=== PATIENT | female | born 1975 | race Caucasian/White ===

== ENCOUNTER 2023-04-06 15:32 | Outpatient (OUT) | payer OTHER, SELFPAY ==
--- NOTE | 2023-04-06 15:35 | MM_ITS ---
Patient Name: SHABANA ROMERO MR#: [id number] : 1975 Exam Date: 04/06/2023 Ordering Doctor: DR YARIEL CALLES RADIOLOGY REPORT PROCEDURE: MM TOMOSYNTHESIS SCREENING BI COMPARISON: MG MAMM SCREEN 3D MITZY CAD, 01/21/2021. MG MAMM SCREEN 3D MITZY CAD, 01/27/2022. INDICATIONS: Screening Calculator Name NCI Breast Cancer Risk Assessment Tool 5 Year Breast Cancer Risk 1.10% Lifetime Breast Cancer Risk 11.10% Personal Breast Cancer No Personal Ovarian Cancer No Treatments None Family Cancers Grandmother-paternal with breast cancer at age ~35. LOCATION: [facility] BREAST COMPOSITION: Heterogeneously dense,which may obscure small masses. FINDINGS: DIAGNOSTIC CATEGORY 1--NEGATIVE. NO CHANGE FROM COMPARISON ASSESSMENT. Scattered benign-appearing calcifications are present. Scattered benign-appearing lymph nodes are present. RIGHT BREAST: No significant suspicious finding. LEFT BREAST: No significant suspicious finding. RECOMMENDATIONS: ROUTINE MAMMOGRAM AND CLINICAL EVALUATION IN 12 MONTHS. PLEASE NOTE: A NORMAL MAMMOGRAM DOES NOT EXCLUDE THE POSSIBILITY OF BREAST CANCER. A CLINICALLY SUSPICIOUS PALPABLE LUMP SHOULD BE BIOPSIED. Dictated by: Ryan Curtis MD on 04/07/2023 at 09:26 Approved by: Ryan Curtis MD on 04/07/2023 at 09:29
== END 2023-04-06 15:33 | disposition home or self-care (01) ==
LOC: MAMMO 15:32
PROVIDERS: PCP Family Medicine; Visit Provider Obstetrics & Gynecology
DX: Z12.31 Encounter for screening mammogram for malignant neoplasm of breast (principal); Z80.3 Family history of malignant neoplasm of breast
CPT/HCPCS: 77063; 77067

== ENCOUNTER 2024-04-28 10:11 | Outpatient (OUT) | payer OTHER, SELFPAY ==
--- NOTE | 2024-04-28 10:16 | MM_ITS ---
Patient Name: SHABANA ROMERO MR#: [id number] : 1975 Exam Date: 04/28/2024 Ordering Doctor: DR YARIEL CALLES RADIOLOGY REPORT PROCEDURE: MM TOMOSYNTHESIS SCREENING BI COMPARISON: MM TOMOSYNTHESIS SCREENING BI, 04/06/2023. MG MAMM SCREEN 3D MITZY CAD, 01/27/2022. MG MAMM SCREEN 3D MITZY CAD, 01/21/2021. MG MAMM MITZY SCRN W CAD DIG, 01/17/2015. INDICATIONS: Screening Calculator Name NCI Breast Cancer Risk Assessment Tool 5 Year Breast Cancer Risk 1.10% Lifetime Breast Cancer Risk 11.00% Personal Breast Cancer No Personal Ovarian Cancer No Treatments None Family Cancers Grandmother-paternal with breast cancer at age ~35. LOCATION: [facility] BREAST COMPOSITION: The breasts are heterogeneously dense,which may obscure small masses. FINDINGS: DIAGNOSTIC CATEGORY 1--NEGATIVE. RIGHT BREAST: No significant suspicious finding. No significant change has occurred. LEFT BREAST: No significant suspicious finding. No significant change has occurred. RECOMMENDATIONS: ROUTINE MAMMOGRAM AND CLINICAL EVALUATION IN 12 MONTHS. PLEASE NOTE: A NORMAL MAMMOGRAM DOES NOT EXCLUDE THE POSSIBILITY OF BREAST CANCER. A CLINICALLY SUSPICIOUS PALPABLE LUMP SHOULD BE BIOPSIED. Dictated by: Rip Suarez M.D. on 04/28/2024 at 15:50 Approved by: Rip Suarez M.D. on 04/28/2024 at 15:52
--- OUTSIDE RECORDS SUMMARY | 2024-04-28 10:23 | XMS_ITS | CCD ---
Author Organization [facility] Care Team Providers Care Advertising Manager Name Role Phone Christiana Tam Unavailable NAILA, DR HITCHCOCK Admitting Unavailable KARASIK, DR HITCHCOCK Attending Unavailable KARASIK, DR HITCHCOCK Consulting Unavailable RAMÍREZ, DR LM Mary Primary Care Unavailable WEST, DR BART Dent Consulting Unavailable RAMÍREZ, DR LM Mary Primary Care Unavailable KARASIK, DR HITCHCOCK Admitting Unavailable KARASIK, DR HITCHCOCK Attending Unavailable KARASIK, DR HITCHCOCK Consulting Unavailable RAMÍREZ, DR LM Mary Admitting Unavailable RAMÍREZ, DR LM Mary Attending Unavailable RAMÍREZ, DR LM Mary Consulting Unavailable RAMÍREZ, DR LM Mary Primary Care Unavailable RAMÍREZ, DR LM Mary Primary Care Unavailable KARASIK, DR HITCHCOCK Attending Unavailable KARASIK, DR HITCHCOCK Consulting Unavailable KARASIK, DR HITCHCOCK Admitting Unavailable KARASIK, DR HITCHCOCK Admitting Unavailable KARASIK, DR HITCHCOCK Attending Unavailable KARASIK, DR HITCHCOCK Consulting Unavailable RAMÍREZ, DR LM Mary Primary Care Unavailable KARASIK, DR HITCHCOCK Admitting Unavailable KARASIK, DR HITCHCOCK Attending Unavailable KARASIK, DR HITCHCOCK Consulting Unavailable RAMÍREZ, DR LM Mary Primary Care Unavailable EDMUNDO, DR VILLARREAL Consulting Unavailable CHAD, VAL Consulting Unavailable MD Bart Brar Attending Provider [phone] DO Lm Ramírez Primary Care Provider COLT CALLES Attending Unavailable Lm Ramírez DO Primary Care Provider [phone] Aparna Campo Unavailable DO Lm Ramírez Primary Care Provider [phone] NAZ Campo Attending Provider JOVON MCDOWELL Attending Unavailable DARRELL LM W Referring Unavailable LM RAMÍREZ Primary Care Unavailable Ramírez Lm Primary Care Unavailable Aparna Campo Attending Unavailable Aparna Campo Admitting Unavailable VISHAL LEGER Admitting Unavailable VISHAL LEGER Attending Unavailable VISHAL LEGER Referring Unavailable RAMÍREZ LM W Primary Care Unavailable HAZEL LAMBERT Attending Unavailable RAMÍREZ, LM W Primary Care Unavailable VISHAL LEGER Attending Unavailable VISHAL LEGER Referring Unavailable RAMÍREZ, LM Tyra Primary Care Unavailable Allergies Allergy Classification Reported Allergen(s) Allergy Type Date of Onset Reaction(s) Facility (7 sources) Azithromycin; Translations: [AZITHROMYCIN] Drug Allergy 2 [facility] (7 sources) Erythromycin; Translations: [ERYTHROMYCIN] Drug Allergy 2 stomach upset, nausea, cramps [facility] Other (1 source) Azithromycin Drug Allergy 7 [facility] Repository (1 source) Erythromycin Drug Allergy 7 [facility] Repository (1 source) Azithromycin Drug Allergy 4 [facility] Repository (1 source) Erythromycin Drug Allergy 4 [facility] Repository Medications Current Medications Medication Drug Class(es) Dates Sig (Normalized) Sig (Original) acetylcysteine 600 mg oral capsule (1 source) Antidote, Mucolytic, Antidote for Acetaminophen Overdose take 2 capsules by mouth in the morning, then take 2 capsules by mouth at bedtime acetylcysteine (NAC) 600 mg capsule Take 2 capsules (1,200 mg total) by mouth in the morning and 2 capsules (1,200 mg total) before bedtime. 0 Active amoxicillin 875 mg / clavulanate 125 mg oral tablet (2 sources) Penicillin-class Antibacterial Start: 05-30-2023 take 1 tablet by mouth every twelve hours Amoxicillin-Pot Clavulanate 875-125 MG 1 tablet Orally every 12 hrs for 10 day(s) May, Active 12 hr cetirizine hydrochloride 5 mg / pseudoephedrine hydrochloride 120 mg extended release oral tablet (7 sources) alpha-Adrenergic Agonist, Histamine-1 Receptor Antagonist take 1 tablet by mouth every twenty-four hours ZyrTEC-D Allergy & Congestion 5-120 MG 1 tablet as needed Orally Once a day Active take 1 tablet by cande th every twelve hours ZyrTEC-D Allergy & Congestion 5-120 MG 1 tablet Orally Twice a day Not-Taking/PRN take 1 tablet by cande th every twelve hours in the morning cetirizine-pseudoephedrine (ZyrTEC-D) 5- 120 mg per 12 hr tablet Take 1 tablet by mouth in the morning and 1 tablet before bedtime. 0 Active cholecalciferol, vitamin D3, (VITAMIN D3 ORAL) (1 source) cholecalciferol, vitamin D3, (VITAMIN D3 ORAL) Take by mouth daily. 0 Active fluconazole 150 mg oral tablet (2 sources) Azole Antifungal Start: 024 Diflucan 150 MG Take 1 tablet on day 1, if still symptomatic on day 4 take 1 tab, if still symptomatic on day 7 take Orally Once a day for 7 days May, Active FLUoxetine (5 sources) Serotonin Reuptake Inhibitor take 1 capsule by mouth in the morning FLUoxetine (PROzac) 10 mg capsule Take 1 capsule (10 mg total) by mouth in the morning. 0 Active Fluoxetine Activ e lisinopril 20 mg oral tablet (5 sources) Angiotensin Converting Enzyme Inhibitor take 1 tablet by mouth every twenty-four hours Lisinopril 20 MG 1 tablet Orally Once a day Active montelukast 10 mg oral tablet (5 sources) Leukotriene Receptor Antagonist take 1 tablet by mouth every twenty-four hours Singulair 10 MG 1 tablet in the evening Orally Once a day Active MOUNJARO 10 mg/0.5 mL pen injector (1 source) Start: 05-11-19 24 MOUNJARO 10 mg/0.5 mL pen injector Inject under the skin once a week. 0 05/11/2023 Active mounjaro 10 mg/0.5ml solution pen-injector (2 sources) Mounjaro 10 MG/0 .5ML as directed Subcutaneous Active sod sulf-pot chloride-mag sulf 1.479-0.188- 0.225 gram tablet (1 source) Start: 06-03-19 24 sod sulf-pot chloride-mag sulf 1.479-0.188- 0.225 gram tablet Indications: Encounter for screening colonoscopy Please see instructional sheet given by physicians office. 24 tablet 0 06/03/2023 Active Vitamin D3 23285 UNIT (3 sources) Vitamin D3 13759 UNIT Orally Active Completed/Discontinued Medications Medication Drug Class(es) Dates Sig (Normalized) Sig (Original) [id number] 200 actuat albuterol 0.09 mg/actuat metered dose inhaler (4 sources) beta2-Adrenergic Agonist take 2 puff(s) by inhalation every four hours as needed Proventil HFA 108 (90 Base) MCG/ACT 2 puffs as needed Inhalation every 4 hrs Not-Taking/PRN take 2 puff(s) by in halation every six hours as needed for wheezing albuterol (PROVENTIL HFA;VENTOLIN HFA) 9 0 mcg/actuation inhaler Inhale 2 puffs every 6 (six) hours as needed for wheezing. 0 Active Jennifer-D 12 Hour (3 sources) Jennifer-D 12 Shreyas r Not-Taking/PRN Jennifer-D 12 Shreyas r Active Augmentin Tablets 875 MG (3 sources) Start: 02-13-2021 take 1 tablet by mouth every twelve hours Augmentin Tablets 875 MG 1 tab(s) orally bid for 10 day(s) Jan, Not-Taking/PRN Start: 02-13-2021 take 1 tablet by cande th every twelve hours Augmentin Tablets 875 MG 1 tab(s) orally bid for 10 day(s) Jan, Active fluticasone (3 sources) Corticosteroid Start: 02-13-2021 take 2 spray(s) nasal route once daily FLONASE 50 mcg 2 sprays nasally qd 2 sprays to each nostril daily until your symptoms improve Jan, Not-Taking/PRN Start: 02-13-2021 take 2 spray(s) nasa l route once daily FLONASE 50 mcg 2 sprays nasally qd 2 sprays to each nostril daily until your symptoms improve Jan, Active ibuprofen 800 mg oral tablet (2 sources) Nonsteroidal Anti-inflammatory Drug Start: 06-09-2021 End: 06-03-2023 take 1 tablet by mouth three times daily ibuprofen (ADVIL,MOTRIN) 800 mg tablet Take 1 tablet (800 mg total) by mouth 3 (three) times a day. 21 tablet 0 06/09/2021 06/03/2023 Discontinued (Therapy completed) methylPREDNISolone 4 mg oral tablet (3 sources) Corticosteroid Start: 01-07-2021 methylPREDNISolone 4 MG as directed Orally Once a day for 6 days Jan, Not-Taking/PRN Multivitamins (3 sources) Multivitamins Or ally Not-Taking/PRN Multivitamins Or ally Active predniSONE 20 mg oral tablet (3 sources) Start: 02-13-2021 take 1 tablet by mouth every twelve hours predniSONE 20 MG 1 tablet Orally bid for 5 day(s) Jan, Not-Taking/PRN Triamcinolone (2 sources) Corticosteroid Start: 04-11-2017 TESFAYE - 10 edilberto g Apr, 60 mg Problems Active Problems Problem Classification Problem Date Documented Date Episodic/Chronic Asthma (7 sources) Acute exacerbation of asthma; Translations: [Unspecified asthma with (acute) exacerbation] Onset: 05-07-2021 Chronic Essential hypertension (7 sources) Hypertensive disorder; Translations: [Essential (primary) hypertension] Onset: 05-07-2021 Chronic Immunizations and screening for infectious disease (2 sources) Contact with and (suspected) exposure to other viral communicable diseases; Translations: [Encounter for screening for human papillomavirus (HPV)] Onset: 02-13-2021 Resolved: 02-13-2021 Episodic Menstrual disorders (7 sources) Excessive and frequent menstruation with regular cycle; Translations: [Dysmenorrhea, unspecified] Onset: 04-12-2021 Chronic Mood disorders (1 source) Premenstrual dysphoric disorder; Translations: [PREMENSTRUAL DYSPHORIC DISORDER] Onset: 05-07-2021 Chronic Other nutritional; endocrine; and metabolic disorders (5 sources) Body mass index 40+ - severely obese; Translations: [Body mass index (BMI) 45.0-49.9, adult] Chronic Other nutritional; endocrine; and metabolic disorders (1 source) Morbid (severe) obesity due to excess calories; Translations: [MORBID SEVERE OBES D/T EXCESS EDIL] Onset: 05-07-2021 Chronic Other nutritional; endocrine; and metabolic disorders (1 source) Body mass index (BMI) 45.0-49.9, adult; Translations: [BODY MASS INDEX BMI 45.0-49.9 ADULT] Onset: 05-07-2021 Chronic Other nutritional; endocrine; and metabolic disorders (1 source) Obese class II; Translations: [Body mass index (BMI) 39.0-39.9, adult] Chronic Other nutritional; endocrine; and metabolic disorders (1 source) Body mass index (BMI) 39.0-39.9, adult Chronic Other screening for suspected conditions (not mental disorders or infectious disease) (12 sources) Encounter for screening for malignant neoplasm of cervix; Translations: [Encounter for screening mammogram for malignant neoplasm of breast] Onset: 01-27-2022 Episodic Other upper respiratory infections (2 sources) Acute sinusitis, unspecified; Translations: [Acute pansinusitis, unspecified] Onset: 02-13-2021 Resolved: 02-13-2021 Episodic Residual codes; unclassified (3 sources) Obstructive sleep apnea syndrome; Translations: [Obstructive sleep apnea (adult) (pediatric)] Chronic Residual codes; unclassified (1 source) Sleep apnea, unspecified; Translations: [SLEEP APNEA UNSPECIFIED] Onset: 05-07-2021 Chronic Residual codes; unclassified (1 source) Obstructive sleep apnea (adult)(pediatric); Translations: [Obstructive sleep apnea (adult) (pediatric)] Onset: 06-03-2023 Chronic Residual codes; unclassified (1 source) Obstructive sleep apnea (adult) (pediatric) Chronic Residual codes; unclassified (1 source) Family history of malignant neoplasm of breast; Translations: [FAMILY HX MALIG NEOPLASM OF BREAST] Onset: 01-29-2022 Episodic Unclassified (1 source) CONTACT W/AND (SUSP) EXPOS COVID-19; Translations: [CONTACT W/AND (SUSP) EXPOS COVID-19] Onset: 04-22-2021 Unclassified (1 source) Colon Cancer Screening Onset: 06-03-2023 Unclassified (1 source) screening Onset: 07-05-2023 Past or Other Problems Problem Classification Problem Date Documented Da te Episodic/Chronic Benign neoplasm of uterus (1 source) Leiomyoma of uterus, unspecified; Translations: [LEIOMYOMA OF UTERUS UNSPECIFIED] Onset: 05-07-2021 Episodic Cancer of cervix (1 source) Atypical squamous cells of undetermined significance on cytologic smear of cervix (ASC-US); Translations: [ASC US ON CYTOLOGIC SMEAR OF CERVIX] Onset: 05-07-2021 Episodic Residual codes; unclassified (1 source) Acquired absence of other specified parts of digestive tract; Translations: [ACQ ABSENCE OTH PART DIGESTV TRACT] Onset: 05-07-2021 Episodic Results Test Name Value Interpretation Reference Range Facility HCG ( test) Ql (U)o n 07-05-2023 Beta HCG ( test) Ql (U) Negative [facility] Comment on above: Performed By: #### 2 106-3 #### [facility] ([id number]) [address] [place] [address], [place] [address] PAP ACOG PANEL 2: 30 to 65on 03-11-2022 . . Normal [facility] Comment on above: Result Comment: Perf ormed at: WB Performed By: #### [id number] #### [facility] [address] [address] [address] Aditi Ying Age Gdln ACOG Testing -64 [facility] Comment on above: Performed By: #### [id number] #### [facility] [address] [address] [address] Aditi Ying DIAGNOSIS: Comment Normal [facility] Comment on above: Result Comment: NEGA TIVE FOR INTRAEPITHELIAL LESION OR MALIGNANCY. Performed at: WB Performed By: #### [id number] #### [facility] [address] [address] [address] Aditi Ying HPV Aptima Negative Normal [facility] Comment on above: Result Comment: This nucleic acid amplification test detects fourteen high-risk HPV types (16,18,31,33,35,39,45,51,52,56,58,59,66,68) without differentiation. Performed at: =G Performed By: #### [id number] #### [facility] [address] [address] [address] Aditi Ying HPV Genotype Reflex Comment Normal [facility] Comment on above: Result Comment: Crit eria not met, HPV Genotype not performed. Performed at: WB Performed By: #### [id number] #### [facility] [address] [address] [address] Aditi Ying Methodology: Comment Normal [facility] Comment on above: Result Comment: This liquid based ThinPrep(R) pap test was screened with the use of an image guided system. Performed at: WB Performed By: #### [id number] #### [facility] [address] [address] [address] Aditi Ying Note: Comment Normal [facility] Comment on above: Result Comment: The Pap smear is a screening test designed to aid in the detection of premalignant and malignant conditions of the uterine cervix. It is not a diagnostic procedure and should not be used as the sole means of detecting cervical cancer. Both false-positive and false-negative reports do occur. . Performed at: WB Performed By: #### [id number] #### [facility] [address] [address] [address] Aditi Ying Performed by: Comment Normal [facility] Comment on above: Result Comment: Wendy Valentino, Design Teacher Performed at: WB Performed By: #### [id number] #### [facility] [address] [place] [address] Dr. Aditi Ying Specimen adequacy: Comment Normal [facility] Comment on above: Result Comment: Sati sfactory for evaluation. Endocervical and/or squamous metaplastic cells (endocervical component) are present. Performed at: WB Performed By: #### [id number] #### [facility] [address] [place] [address] Dr. Aditi Ying MG MAMM SCREEN 3D MITZY CADon 01-27-2022 MG MAMM SCREEN 3D MITZY CAD Patient: KAREN PRECIADO Exam Date: 01/27/2022 : 1975 Gender:F Ordering : DR CORETTA YOO . Admission #: [id number] Family : Order #: [id number] CLICK HERE TO VIEW EXAM RADIOLOGY REPORT PROCEDURE: MAMMOGRAM SCREENING 3D BILATERAL CAD COMPARISON: MG MAMM SCREEN MITZY W CAD, 12/18/2019. MG MAMM SCREEN 3D MITZY CAD, 01/21/2021. INDICATIONS: Screening mammography Calculator Name NCI Breast Cancer Risk Assessment Tool 5 Year Breast Cancer Risk 1.10% Lifetime Breast Cancer Risk 11.30% Personal Breast Cancer No Personal Ovarian Cancer No Treatments None Family Cancers Grandmother-paternal with breast cancer at age 35. LOCATION: [facility] BREAST COMPOSITION: Heterogeneously dense,which may obscure small masses. FINDINGS: DIAGNOSTIC CATEGORY 1--NEGATIVE. NO CHANGE FROM COMPARISON ASSESSMENT. Scattered benign-appearing calcifications are present. Scattered benign-appearing lymph nodes are present. RIGHT BREAST: No significant suspicious finding. LEFT BREAST: No significant suspicious finding. RECOMMENDATIONS: ROUTINE MAMMOGRAM AND CLINICAL EVALUATION IN 12 MONTHS. PLEASE NOTE: A NORMAL MAMMOGRAM DOES NOT EXCLUDE THE POSSIBILITY OF BREAST CANCER. A CLINICALLY SUSPICIOUS PALPABLE LUMP SHOULD BE BIOPSIED. Dictated by: Bart Curtis MD on 01/28/2022 at 07:40 Approved by: Bart Curtis MD on 01/28/2022 at 07:42 Normal [facility] CBC AUTO DIFFon 12-18-2021 BASO # 0.1 103/ul Normal 0.0-0.1 [facility] Comment on above: Performed By: #### H FPFCBC #### [facility] [address] [place] [address] Dr. Aditi Ying Basophils/100 WBC (Bld) 0.6 % Normal 0.2-2.0 [facility] Comment on above: Performed By: #### H FPFCBC #### [facility] [address] [place] [address] Dr. Aditi Ying EO # 0.2 103/ul Normal 0.0-0.7 [facility] Comment on above: Performed By: #### H FPFCBC #### [facility] [address] [place] [address] Dr. Aditi Ying Eosinophils/100 WBC (Bld) 2.2 % Normal 0.9-7.0 [facility] Comment on above: Performed By: #### H FPFCBC #### [facility] [address] [place] [address] Dr. Aditi Ying Erythrocyte distribution width (RBC) [Ratio] 12.9 % Normal 11.0-15.0 [facility] Comment on above: Performed By: #### H FPFCBC #### [facility] [address] [place] [address] Dr. Aditi Ying Hematocrit (Bld) [Volume fraction] 40.8 % Normal 36.0-48.0 [facility] Comment on above: Performed By: #### H FPFCBC #### [facility] [address] [address] [address] Aditi Ying Hemoglobin (Bld) [Mass/Vol] 13.2 g/dL Normal 12.0-16.0 [facility] Comment on above: Performed By: #### H FPFCBC #### [facility] [address] [place] [address] Dr. Aditi Ying IG # 0.02 10e3/ul Normal 0.00-0.03 [facility] Comment on above: Performed By: #### H FPFCBC #### [facility] [address] [place] [address] Dr. Aditi Ying IG % 0.2 % Normal 0.0-0.5 [facility] Comment on above: Performed By: #### H FPFCBC #### [facility] [address] [place] [address] Dr. Aditi Ying LYMPH # 1.6 103/ul Normal 1.2-3.8 [facility] Comment on above: Performed By: #### H FPFCBC #### [facility] [address] [place] [address] Dr. Aditi Ying Lymphocytes/100 WBC (Bld) 19.4 % Critically low 20.5-60.0 [facility] Comment on above: Performed By: #### H FPFCBC #### [facility] [address] [place] [address] Dr. Aditi Ying MCH (RBC) [Entitic mass] 31.0 pg Normal 26.7-34.0 [facility] Comment on above: Performed By: #### H FPFCBC #### [facility] [address] [place] [address] Dr. Aditi Ying MCHC (RBC) [Mass/Vol] 32.4 g/dL Normal 29.9-35.2 [facility] Comment on above: Performed By: #### H FPFCBC #### [facility] [address] [place] [address] Dr. Aditi Ying MCV (RBC) [Entitic vol] 95.8 fL Normal 81.0-99.0 [facility] Comment on above: Performed By: #### H FPFCBC #### [facility] [address] [place] [address] Dr. Aditi Ying MONO # 0.6 103/ul Normal 0.3-0.8 [facility] Comment on above: Performed By: #### H FPFCBC #### [facility] [address] [place] [address] Dr. Aditi Ying Monocytes/100 WBC (Bld) 6.8 % Normal 1.7-12.0 [facility] Comment on above: Performed By: #### H FPFCBC #### [facility] [address] [place] [address] Dr. Aditi Ying NEUT # 6.0 103/ul Normal 1.4-6.5 [facility] Comment on above: Performed By: #### H FPFCBC #### [facility] [address] [place] [address] Dr. Aditi Ying Neutrophils/100 WBC (Bld) 70.8 % Normal 43.0-75.0 [facility] Comment on above: Performed By: #### H FPFCBC #### [facility] [address] [place] [address] Dr. Aditi Ying Platelet mean volume (Bld) [Entitic vol] 11.5 fL Normal 9.5-13.5 [facility] Comment on above: Performed By: #### H FPFCBC #### [facility] [address] [place] [address] Dr. Aditi Ying PLT 287 103/ul Normal 150-450 [facility] Comment on above: Performed By: #### H FPFCBC #### [facility] [address] [place] [address] Dr. Aditi Ying RBC 4.26 106/ul Normal 4.20-5.40 [facility] Comment on above: Performed By: #### H FPFCBC #### [facility] [address] [place] [address] Dr. Aditi Ying WBC 8.5 103/ul Normal 4.0-11.0 [facility] Comment on above: Performed By: #### H FPFCBC #### [facility] [address] [place] [address] Dr. Aditi Ying HEALTH[employer] PROFILEon 022 Albumin [Mass/Vol] 3.9 g/dL Normal 3.4-5.0 [facility] Comment on above: Performed By: #### H FPF #### [facility] [address] [place] [address] Dr. Aditi Ying Albumin/Globulin [Mass ratio] 1.1 {ratio} Normal [facility] Comment on above: Performed By: #### H FPF #### [facility] [address] [place] [address] Dr. Aditi Ying ALP [Catalytic activity/Vol] 59 U/L Normal 46-116 [facility] Comment on above: Performed By: #### H FPF #### [facility] [address] [place] [address] Dr. Aditi Ying ALT [Catalytic activity/Vol] 26 U/L Normal 14-59 [facility] Comment on above: Performed By: #### H FPF #### [facility] [address] [place] [address] Dr. Aidti Ying AST [Catalytic activity/Vol] 12 U/L Critically low 15-37 [facility] Comment on above: Performed By: #### H FPF #### [facility] [address] [place] [address] Dr. Aditi Ying Bilirubin [Mass/Vol] 0.3 mg/dL Normal 0.2-1.0 [facility] Comment on above: Performed By: #### H FPF #### [facility] [address] [place] [address] Dr. Aditi Ying Calcium [Mass/Vol] 9.1 mg/dL Normal 8.5-10.1 [facility] Comment on above: Performed By: #### H FPF #### [facility] [address] [place] [address] Dr. Aditi Ying Chloride [Moles/Vol] 103 mmol/L Normal 98-107 [facility] Comment on above: Performed By: #### H FPF #### [facility] [address] [address] [address] Aditi Ying CHOL-HDL RATIO NORM SEE BELOW Normal [facility] Comment on above: Result Comment: 3.3 - 4.4 LOW RISK 4.4 - 7.1 AVERAGE RISK 7.1 - 11.0 MODERATE RISK >11.0 HIGH RISK Performed By: #### H FPF #### [facility] [address] [address] [address] Aditi Ying Cholesterol [Mass/Vol] 185 mg/dL Normal <=200 [facility] Comment on above: Performed By: #### H FPF #### [facility] [address] [address] [address] Aditi Ying Cholesterol in HDL [Mass/Vol] 48 mg/dL Normal 40-60 [facility] Comment on above: Performed By: #### H FPF #### [facility] [address] [address] [address] Aditi Ying Cholesterol in LDL [Mass/Vol] 109.8 mg/dL Normal [facility] Comment on above: Performed By: #### H FPF #### [facility] [address] [address] [address] Aditi Ying Cholesterol.total/C holesterol in HDL [Mass ratio] 3.9 {ratio} Normal [facility] [facility] Comment on above: Performed By: #### H FPF #### [facility] [address] [address] [address] Aditi Ying CO2 [Moles/Vol] 25.3 mmol/L Normal 21.0-32.0 [facility] Comment on above: Performed By: #### H FPF #### [facility] [address] [address] [address] Aditi Ying Creatinine [Mass/Vol] 0.74 mg/dL Normal 0.55-1.02 [facility] Comment on above: Performed By: #### H FPF #### [facility] [address] [address] [address] Aditi Ying Globulin (S) [Mass/Vol] 3.4 g/dL Normal [facility] Comment on above: Performed By: #### H FPF #### [facility] [address] [address] [address] Aditi Ying Glucose [Mass/Vol] 137 mg/dL Critically high 74-106 T [facility] Comment on above: Performed By: #### H FPF #### [facility] [address] [address] [address] Aditi Ying HDL NORMAL > or = 60 mg/dl - LO W CARDIOVASCULAR RISK <40 mg/dl - HIGH CARDIOVASCULAR RISK Normal The [facility] Comment on above: Performed By: #### H FPF #### [facility] [address] [address] [address] Aditi Ying LDL CALC NORMAL SEE BELOW Normal The [facility] Comment on above: Result Comment: <100 mg/dl OPTIMAL 100 - 129 mg/dl NEAR OR ABOVE OPTIMAL 130 - 159 mg/dl BORDERLINE HIGH 160 - 189 mg/dl HIGH >190 mg/dl VERY HIGH Performed By: #### H FPF #### [facility] [address] [address] [address] Aditi Ying Potassium [Moles/Vol] 4.2 mmol/L Normal 3.5-5.1 [facility] Comment on above: Performed By: #### H FPF #### [facility] [address] [address] [address] Aditi Ying Protein [Mass/Vol] 7.3 g/dL Normal 6.4-8.2 [facility] Comment on above: Performed By: #### H FPF #### [facility] [address] [address] [address] Aditi Ying Sodium [Moles/Vol] 139 mmol/L Normal 136-145 [facility] Comment on above: Performed By: #### H FPF #### [facility] [address] [address] [address] Aditi Ying Triglyceride [Mass/Vol] 136 mg/dL Normal <=150 [facility] Comment on above: Performed By: #### H FPF #### [facility] [address] [address] [address] Aditi Ying TSH 1.349 uIU/mL Normal 0.358-3.740 [facility] Comment on above: Performed By: #### H FPF #### [facility] [address] [address] [address] Aditi Ying Urea nitrogen [Mass/Vol] 16.0 mg/dL Normal 7.0-18.0 [facility] Comment on above: Performed By: #### H FPF #### [facility] [address] [address] [address] Aditi Ying Urea nitrogen/Creatinine [Mass ratio] 21.6 mg/mg Normal [facility] Comment on above: Performed By: #### H FPF #### [facility] [address] [address] [address] Aditi Ying VLDL CALC 27.2 mg/dL Normal [facility] Comment on above: Performed By: #### H FPF #### [facility] [address] [address] [address] Aditi Ying URon 04-21-2021 , QUAL Negative Normal NEGATIVE [facility] Comment on above: Performed By: #### P REGU #### [facility] [address] [address] [address] Aditi Ying Covid-19 PCR [facility]02 SARS-CoV-2 (COVID-19) RNA ABAD+probe Ql (Unsp spec) Not detected Normal NOT DETECTED [facility] Comment on above: Result Comment: This test is not yet approved or cleared by the [place] FDA. When there are no FDA-approved or cleared tests available, and other criteria are met, FDA can make tests available under an emergency access mechanism called an Emergency Use Authorization (EUA). The EUA for this test is supported by the [place] of Health and Human Service's (HHS's) declaration that circumstances exist to justify the emergency use of in vitro diagnostics for the detection and/or diagnosis of the virus that causes COVID-19. This EUA will remain in effect (meaning this test can be used) for the duration of the COVID-19 declaration justifying emergency of IVDs, unless it is terminated or revoked by FDA (after which the test may no longer be used). When diagnostic testing is negative, the possibility of a false negative should be considered in the context of a patient's recent exposures and the presence of clinical signs and symptoms consistent with SARS-CoV-2. Performed By: #### C [facility] #### [facility] [address] [address] [address] Aditi Ying Coding Summaryon 06-04-2020 Coding Summary CODING DATE: 06/04/2020 [facility] STATUS: Home PAYOR: Commercial Insurance APC DESCRIPTION 5521 Level 1 Imaging without Contrast ADMIT DX: REASON FOR VISIT DX: R06.2 Wheezing FINAL DX: PRINCIPAL: R06.2 Wheezing SECONDARY: PYMT PROC APC STAT DESCRIPTION DOCTOR NAME DATE NOTE: The code number assigned matches the documented diagnosis and / or procedure in the patient's chart. However, the narrative phrase printed from the coding software may appear abbreviated, or result in slightly different terminology. Coded By: Karen Arzola Date Saved: 06/04/2020 09:33 am [facility] Provider Ord[place] 05-31-2020 Provider Orders [id number] 0OTGTIFF [facility] XR Chest 2 Viewson XR Chest 2 Views EXAM: XR Chest 2 Vie ws HISTORY: Right-sided wheezing. COMPARISON: None. TECHNIQUE: Two-view chest. FINDINGS: There is mild elevation of the right hemidiaphragm. There is no focal consolidation, pleural effusion, or pneumothorax. The cardiomediastinal silhouette is within normal limits. IMPRESSION: 1. No acute cardiopulmonary disease. Final Dictated by: Vishal Higgins Dictated DT/TM: 05/31/20 11:01 Signed (Electronic Signature): Vishal Higgins 05/31/20 11:02 a Technologist: SHAHBAZ HERR [facility] Coding Summaryon 11-08-2019 Coding Summary CODING DATE: 11/08/2019 [facility] STATUS: Home PAYOR: Commercial Insurance APC DESCRIPTION 5733 Level 3 Minor Procedures ADMIT DX: REASON FOR VISIT DX: Z01.818 Encounter for other preprocedural examination FINAL DX: PRINCIPAL: Z01.818 Encounter for other preprocedural examination SECONDARY: PYMT PROC APC STAT DESCRIPTION DOCTOR NAME DATE NOTE: The code number assigned matches the documented diagnosis and / or procedure in the patient's chart. However, the narrative phrase printed from the coding software may appear abbreviated, or result in slightly different terminology. 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 However, the narrative phrase printed from the coding software may appear abbreviated, or result in slightly different terminology. Coded By: Karen Arzola Date Saved: 11/08/2019 10:14 am [facility] History and Physicalon 10-31 History and Physical [id number]#1.[address] [place] [address] Provider [place] 11-01-2019 Provider Orders [id number]#1.0 [facility] 10-31-2019 Consent Forms [id number]#1.[address] [place] [address] Discharge Instructionson Discharge Instructions [id number]#1.[address] [place] [address] Medication Managementon 10-03 Medication Management [id number]#1.[address] [place] [address] Telemetry Stripson 0 Telemetry Strips [id number]#1.[address] [place] [address] Anesthesia Noteon 10-30-2019 Anesthesia Note Patient: KAREN PRECIADO Age: 43 years Sex: FEMALE : 1975 Associated Diagnoses: None Author: Nasim Rausch MD Preoperative Information Anesthesia history: Patient history: No difficult intubation, No malignant hyperthermia. Family history: No malignant hyperthermia. Review of Systems Constitutional: Negative. Respiratory: Negative, No shortness of breath. Cardiovascular: Negative, No chest pain. Gastrointestinal: No heartburn. Health Status Allergies: Allergic Reactions (All) Severity Not Documented Azithromycin- Hives. Erythromycin- Vomiting. Current medications: Home Medications (8) Active CETIRIZ/PSE 5-120MG TAB 1 tab(s), PRN, BID FLUoxetine 20 mg oral capsule 20 mg = 1 cap(s), PO, Daily lisinopril 20 mg oral tablet 20 mg = 1 tab(s), PO, Daily montelukast 10 mg oral tablet 10 mg = 1 tab(s), PO, qPM multivitamin with minerals 1 tab(s), PO, Daily Ventolin HFA 90 mcg/inh inhalation aerosol 1 puff(s), PRN, INH, q6hr Vitamin D3 10,000 intl units (250 mcg) oral capsule 10,000 International_Unit = 1 cap(s), PO, Every other day Vitamin D3 5000 intl units oral capsule 5,000 International_Unit = 1 cap(s), PO, Every other day Problem list (past medical history): All Problems Asthma / SNOMED CT 155329781 / Confirmed Hypertension / SNOMED CT 3908066318 / Confirmed PMDD (premenstrual dysphoric disorder) / SNOMED CT 0533033 / Confirmed Sleep apnea / SNOMED CT 174334541 / Confirmed Histories Family History: No family history items have been selected or recorded. Procedure history: LASIK ([id number]). Cholecystectomy (96094074). Ankle (9514926). Comments: 10/25/2019 13:17 EDT - Perla Griffin RN elongated calf muscle, after Achilles injury Social History Electronic Cigarette/Vaping Assessment Electronic Cigarette Use: Never. Alcohol Assessment Use: Current. 1-2 times per month Tobacco Assessment Never (less than 100 in lifetime) Tobacco Use:. Substance Abuse Assessment Substance use: Never. . Social & Psychosocial Habits Alcohol 10/25/2019 Alcohol Use: Current Frequency: 1-2 times per month Substance Abuse 10/25/2019 Substance use: Never Tobacco 10/25/2019 Smoking tobacco use: Never (less than 100 in l Electronic Cigarette/Vaping 10/25/2019 Electronic Cigarette Use: Never . Physical Examination VS/Measurements Measurements from flowsheet : Measurements 10/30/2019 13:45 EDT Weight 107.3 kg , Vital Signs (last 24 hrs) Last Charted Heart Rate Peripheral 76 bpm (OCT 29 13:45) Resp Rate 16 br/min (OCT 29 13:45) SBP H 144mmHg (OCT 29 13:50) DBP 78 mmHg (OCT 29 13:50) SpO2 98 % (OCT 29 13:45) Weight 107.3 kg (OCT 29 13:45) Review / Management Laboratory Results Plan [place] [employer]hesi[employer]#(ASA ) physical status classification: Class III. Anesthetic Preoperative Plan Anesthesia: General. . Anesthetic plan, risks, benefits, and alternatives discussed with the patient and/or family. Patient verbalized understanding. [Electronically Signed on: 10/30/2019 14:50 EDT] Nasim Rausch MD [Verified on: 10/30/2019 14:50 EDT] Nasim Rausch MD Normal [facility] Inpatient Patient Summaryon 10-30-2019 Inpatient Patient Summary [address] [address] Patient Discharge Instructions Name: KAREN PRECIADO : 1975 Patient Address: [address] [place] [address] [place] [address] Primary Care Provider: Name: Lm Ramírez DO After you are discharged if you find you have any questions, please, call [phone] ext [phone] to speak to a nurse. Discharge Diagnosis: Internal derangement of left knee Prescription Information: If you have been given a prescription for narcotics, seek immediate medical attention if you have any difficulty breathing or any sudden status changes such as confusion and sleepiness. If you or anyone you know is experiencing suicidal thoughts, mental health, alcohol and/or drug addiction problems; contact the Mental Health [facility] Recovery [facility] 23/11 Crisis Hotline -text 4HBHB kq 468430. If you received any narcotics, sedation, or any other medication that causes drowsiness for the next 24 hours, unless otherwise directed: ? Do not drive a car. ? Do not operate machinery such as power tools, lawn mowers, drills, sewing machines, or stoves ? Avoid alcoholic beverages and drugs for allergies, nerves, or sleep ? Do not make important personal or business decisions or sign any legal documents [facility] would like to thank you for allowing us to assist you with your healthcare needs. The following includes patient education materials and information regarding your injury/illness. KAREN PRECIADO has been given the following list of follow-up instructions, prescriptions, and patient education materials: Follow-up Instructions With: Address: When: VIKY MAZA [address] [place] [address], [address] [place], [place] [id number] Business (1) 11/07/2019 9:15 AM With: Address: When: Lm Ramírez Medications During the course of your visit, your medication list was updated with the most current information. The details of those changes are reflected below: Medications That Were Updated - Follow Below Instructions Other Medications Updated: Durable Medical Equipment (DME) (CETIRIZ/PSE 5-120MG TAB) 1 tab(s) 2 times a day as needed allergy symptoms. Medications to Continue That Have Not Changed Other Medications albuterol (Ventolin HFA 90 mcg/inh inhalation aerosol) 1 puff(s) Inhalation Every 6 hours as needed for wheezing. cholecalciferol (Vitamin D3 10,000 intl units (250 mcg) oral capsule) 1 cap(s) Oral every other day. cholecalciferol (Vitamin D3 5000 intl units oral capsule) 1 cap(s) Oral every other day. with food. FLUoxetine (FLUoxetine 20 mg oral capsule) 1 cap(s) Oral every day. lisinopril (lisinopril 20 mg oral tablet) 1 tab(s) Oral every day. montelukast (montelukast 10 mg oral tablet) 1 tab(s) Oral once a day (in the evening). multivitamin with minerals 1 tab(s) Oral every day. It is important to always keep an active list of medications available so that you can share with other providers and manage your medications appropriately. As an additional courtesy, we are also providing you with your final active medications list that you can keep with you. albuterol (Ventolin HFA 90 mcg/inh inhalation aerosol) 1 puff(s) Inhalation Every 6 hours as needed for wheezing. cholecalciferol (Vitamin D3 10,000 intl units (250 mcg) oral capsule) 1 cap(s) Oral every other day. cholecalciferol (Vitamin D3 5000 intl units oral capsule) 1 cap(s) Oral every other day. with food. Durable Medical Equipment (DME) (CETIRIZ/PSE 5-120MG TAB) 1 tab(s) 2 times a day as needed allergy symptoms. FLUoxetine (FLUoxetine 20 mg oral capsule) 1 cap(s) Oral every day. lisinopril (lisinopril 20 mg oral tablet) 1 tab(s) Oral every day. montelukast (montelukast 10 mg oral tablet) 1 tab(s) Oral once a day (in the evening). multivitamin with minerals 1 tab(s) Oral every day. Take only the medications listed above. Contact your doctor prior to taking any medications not on this list. Diet & Activity Patient Activity Level: Patient Diet: Regular Patient Activity Restrictions: Comment: Patient education materials, if any, will display below DR. MESA POST OPERATIVE KNEE ARTHROSCOPY INSTRUCTIONS SURGEONS WRITTEN INSTRUTCTIONS: -If you have been given a cryo cuff after surgery you should use it about 20 min/hour for the first 24 hours. After that it is optional. TIP: Many patients prefer to use it a little longer because it helps to reduce the pain. -You should take it easy for the first 3 days following surgery. You should be a ?couch potato? and get up to eat and go to the bathroom. After the first 3 days, you may gradually increase your activities as tolerated. -Change your dressing in 1 day. If the wounds are clean and dry you can cover them with a band-aid. -You may shower in 1 day. DO NOT submerge the wound under water as in a bathtub, swimming pool, or hot tub. -You may bear weight as tolerated. Using crutches or assisted devices are not required. -You should elevate your extremity -If you have any questions or concerns, please call the office at [phone] Viruses or Bacteria What?s got you sick? Antibiotics only treat bacterial infections. Viral illnesses cannot be treated with antibiotics. When an antibiotic is not prescribed, ask your healthcare professional for tips on how to relieve symptoms and feel better. Usual Cause Illness Viruses Bacteria Antibiotic Needed Cold/Runny Nose NO Bronchitis/Chest Cold (in otherwise healthy children and adults) NO Whooping Cough Yes Flu NO Strep Throat Yes Sore Throat (except strep) NO Fluid in the middle ear (otitis media with effusion) NO Urinary Tract Infection Yes Antibiotics Aren?t Always the Answer www.cdc.gov/getsmart GET SMART Know When Antibiotics Work [place].S. Department of Health and Human Services Centers for Disease Control and Prevention [facility] Intraoperative Record MAGR Intra-Op Record Summary Primary Physician: Savage Roberson DO Finalized Date/Time: 10/30/19 16:29:49 Pt. Name: KAREN PRECIADO/Sex: 1975 FEMALE Med Rec #: [id number] Physician: Savage Roberson DO Financial #: [id number] Pt. Type: D Room/Bed: / Admit/Disch: 10/30/19 13:32:31 - Institution: Case Times MAGR Entry 1 Patient In Room Time 10/30/19 14:59:00 Out Room Time 10/30/19 15:53:00 Anesthesia Start Time 10/30/19 14:59:00 Stop Time 10/30/19 15:53:00 Surgery Start Time 10/30/19 15:25:00 Stop Time 10/30/19 15:46:00 Last Modified By: Rama Shafer RN 10/30/19 16:17:37 Case Attendance MAGR Entry 1 Entry 2 Entry 3 Case Attendee Savage Roberson John M MD Radloff, LeighStephanie Vu DO Role Performed Surgeon - Primary Anesthesiologist of School Attendance Secretary Record Time In 10/30/19 14:59:00 10/30/19 14:59:00 10/30/19 14:59:00 Time Out 10/30/19 15:53:00 10/30/19 15:53:00 10/30/19 15:53:00 Procedure Arthroscopy Knee(Left, Arthroscopy Knee(Left, Arthroscopy Knee(Left, Knee) Knee) Knee) Last Modified By: Rama Shafer RN 10/30/19 Rama Shafer RN 10/30/19 Rama Shafer RN 10/30/19 16:18:35 16:18:35 16:18:35 Entry 4 Entry 5 Case Attendee Brandy Wylie Ruth RN Role Performed Scrub Personnel [place] Time In 10/30/19 14:59:00 10/30/19 14:59:00 Time Out 10/30/19 15:53:00 10/30/19 15:53:00 Procedure Arthroscopy Knee(Left, Arthroscopy Knee(Left, Knee) Knee) Last Modified By: Rama Shafer RN 10/30/19 Rama Shafer RN 10/30/19 16:18:35 16:18:35 Surgical Procedures MAGR Pre-Care Text: A.20 Verifies operative procedure, surgical site, and laterality Im.150 Develops individualized plan of care Entry 1 Procedure Arthroscopy Knee Primary Procedure Yes Primary Surgeon Savage Roberson Modifiers Left, Knee Horace DO Surgeon Comment LEFT KNEE ARTHROSCOPY Start 10/30/19 15:25:00 Stop 10/30/19 15:46:00 Anesthesia Type General Surgical Service Orthopedics Wound Class Clean Technique Details Closure Technique Primary Entire procedure No was performed via laparoscope or robotic assistance Last Modified By: Rama Shafer RN 10/30/19 16:19:00 Post-Care Text: O.730 The patient's care is consistent with the individualized perioperative plan of care General Case Data MAGR Pre-Care Text: A.350.1 Classifies surgical wound Entry 1 Case Information OR MAGR OR 01 Case Level Level 4 Wound Class Clean Specialty Orthopedics ASA Class 3 Diagnosis Preop Diagnosis TORN MEDIAL MENISCUS Postop Same As Preop Yes LEFT KNEE Postop Diagnosis TORN MEDIAL MENISCUS LEFT KNEE Blunt or No Is the procedure No penetrating injury considered occured prior to Emergent/Urgent? the start of the procedure: Last Modified By: Rama Shafer RN 10/30/19 16:19:19 Post-Care Text: O.760 Patient receives consistent and comparable care regardless of the setting Time Out MAGR Entry 1 Time out date/time 10/30/19 15:24:00 All team members Yes have introduced themselves by name and role Surgeon, Yes Surgeon reviews Yes anesthesia, nurse critical or confirm patient, unexpected steps, site, procedure operative duration, anticipated blood loss Anesthesia team Yes Nursing team Yes reviews any reviews sterility patient-specific (including concerns indicator results) and equipment issues/concerns Antibiotic Antibiotic Yes prophylaxis given within the last 60 minutes Last Modified By: Rama Shafer RN 10/30/19 16:19:37 Patient Positioning MAGR Pre-Care Text: A.280 Identifies baseline musculoskeletal status Im.40 Positions the patient Im.80 Applies safety devices Entry 1 Procedure Arthroscopy Knee(Left, Body Position Supine Knee) Left Arm Position Extended on padded arm Right Arm Position Extended on padded arm board board Left Leg Position Other/see comments Right Leg Position Dangling Feet Uncrossed? Yes Press Points Checked Yes Positioning Device Safety Strap, Pillow Outcome Met (O.80) Yes Last Modified By: Rama Shafer RN 10/30/19 16:21:26 Post-Care Text: E.290 Evaluates musculoskeletal status O.80 Patient is free from signs and symptoms of injury related to positioning General Comments: LEFT LEG IN HORSESHOE LEG DORSEY RIGHT LEG SUPPORTED BY CUSHION WHILE DANGLING Skin Prep MAGR Pre-Care Text: A.30 Verifies allergies Im.270 Performs skin preparation Im.270.1 Implements protective measures to prevent skin and tissue injury due to chemical sources Entry 1 Skin Prep Syntegrity Prep Agents (Im.270) Chlorhexidine Gluconate Prep By Rama Shafer RN and Alcohol Prep Area (Im.270) Knee and lower leg, Foot Prep Area Details Left Skin Prep Agent Dry Yes Without Pooling Hair Removal Syntegrity Hair Removal Methods No hair removal performed Outcome Met (O.100) Yes Last Modified By: Rama Shafer RN 10/30/19 16:22:29 Post-Care Text: E.10 Evaluates for signs and symptoms of physical injury to skin and tissue O.100 Patient is free from signs and symptoms of chemical injury Counts Verification MAGR Pre-Care Text: A.20 Verifies operative procedure, surgical site, and laterality A.20.2 Assesses the risk for unintended retained foreign body Im.20 Performs required counts Entry 1 Procedure Arthroscopy Knee(Left, Knee) Counts Verification Initial Counts Items included in Sponges, Sharps Initial Counts Manual the Initial Count Method Initial Counts Rama Shafer RN, Initial Count Time 10/30/19 15:10:00 Performed By Brandy Wylie Counts Verification Final Counts Items Included in Sponges, Sharps Final Count Method Manual Final Count Final Count Status Correct Final Counts Rama Shafer RN, Performed By Brandy Wylie Final Count Time 10/30/19 15:40:00 Surgeon notified of Yes final counts status Outcome Met (O.20) Yes Last Modified By: Rama Shafer RN 10/30/19 16:22:55 Post-Care Text: E.50 Evaluates results of the surgical count O.20 Patient is free from unintended retained foreign objects Patient Care Devices MAGR Pre-Care Text: A.200 Assesses risk for normothermia regulation A.40 Verifies presence of prosthetics or corrective devices Im.280 Implements thermoregulation measures Im.60 Uses supplies and equipment within safe parameters Entry 1 Equipment Type FORCED WARM AIR UNIT Equipment Setting 43 DEGREE C Last Modified By: Rama Shafer RN 10/30/19 16:23:25 Post-Care Text: E.10 Evaluates signs and symptoms of physical injury to skin and tissue O.700 Patient is free from signs and symptoms of injury caused by extraneous objects General Comments: UPPER BODY Medication Administration MAGR Pre-Care Text: A.210 Identifies physiological status Im.220 Administers prescribed medications Entry 1 Time Administered 10/30/19 15:25:00 Medication EPI 1:1,000 0.3ML TO 3,000 ML 0.9% NORMAL SALINE Route of Admin IRRIG Volume 6 mL By Savage Roberson Outcome Met (O.130) Yes Horace CHAMBERS Last Modified By: Rama Shafer RN 10/30/19 16:23:58 Post-Care Text: E.20 Evaluates response to medications O.130 Patient receives appropriately administered medication(s) Dressing/Packing MAGR Pre-Care Text: A.350 Assesses susceptibility for infection Im.290 Administer care to wound sites Entry 1 Skin Prep Agent Yes Site Knee Removed Prior to Dressing? Site Details Left Dressing Item Details Dressing Item 4x4's, ABD Tape (Im.290) Elastic Sports Bandage (Im.290) Outcome Met Yes Last Modified By: Rama Shafer RN 10/30/19 16:24:44 Post-Care Text: E.200 Evaluates progress of wound healing O.200 Patient's wound perfusion is consistent with or improved from baseline levels Departure from OR MAGR Entry 1 Present on Depart Oxygen Via Stretcher Post-op Destination PACU Skin DFO Condition Dry Description Condition Warm Description Report Given To Cara Mo RN Airway Maintenance Patient Status Stable Oxygen in Use? Yes Airway Device Simple mask Flow Rate 15 L/min Last Modified By: Rama Shafer RN 10/30/19 16:25:18 Case Comments Finalized By: Rama Shafer RN Document Signatures Signed By: Rama Shafer RN 10/30/19 [facility]29 [facility] PACU Record Summary Primary Physician: Savage Roberson DO Finalized Date/Time: 10/30/19 16:48:45 Pt. Name: KAREN PRECIADO/Sex: 1975 FEMALE Med Rec #: [id number] Physician: Savage Roberson DO Financial #: [id number] Pt. Type: D Room/Bed: / Admit/Disch: 10/30/19 13:32:31 - Institution: PACU Case Times MAGR Entry 1 In PACU I 10/30/19 15:45:00 Discharge from PACU 10/30/19 16:29:00 I Last Modified By: Cara Mo RN 10/30/19 16:48:38 General Comments: sTABLE TO TRANSFER TO pHASE II Finalized By: Cara Mo RN Document Signatures Signed By: Cara Mo RN 10/30/19 16:48 [facility] MAGR Postoperative Recordon 10-30-2019 MAGR Postoperative Record MAGR Phase II Record Summary Primary Physician: Savage Roberson DO Finalized Date/Time: 10/30/19 17:07:12 Pt. Name: KAREN PRECIADO/Sex: 1975 FEMALE Med Rec #: [id number] Physician: Savage Roberson DO Financial #: [id number] Pt. Type: D Room/Bed: / Admit/Disch: 10/30/19 13:32:31 - Institution: Phase II Case Times MAGR Pre-Care Text: Patient is free from s/s of injury. Patient remains free from compromised physical state related to surgery or anesthesia. Patient comfort maintained. Patient/family verbalize understanding of discharge instructions. Entry 1 In PACU II 10/30/19 16:30:00 Discharge from PACU 10/30/19 17:07:00 II Last Modified By: Shirlene Kenyon RN 10/30/19 17:07:06 Post-Care Text: The patient remains free from s/s of injury. Patient's vital signs stable, circulation maintained, return to preop mental and physical status, opsite/dressing intact, minimal or absent nausea and vomiting, tolerates po intake. Patient verbalizes adequate pain control. Patient/family express understanding of discharge instructions. Finalized By: Shirlene Kenyon RN Document Signatures Signed By: Shirlene Kenyon RN 10/30/19 17:07 [facility] MAGR Preoperative Recordon 0 10-30-2019 MAGR Preoperative Record MAGR Pre-Op Record Summary Primary Physician: Savage Roberson DO Finalized Date/Time: 10/30/19 16:49:15 Pt. Name: KAREN PRECIADO [place]/Sex: 1975 FEMALE Med Rec #: [id number] Physician: Savage Roberson DO Financial #: [id number] Pt. Type: D Room/Bed: / Admit/Disch: 10/30/19 13:32:31 - Institution: Pre-Op Case Times MAGR Pre-Care Text: Patient will be optimally prepared for surgery. Patient is free from s/s of injury. Provide information to patient/family related to plan of care. Verify patient allergies. Confirm identity and verify consent before the operative or invasive procedure. Entry 1 Patient Arrival Time 10/30/19 13:35:00 Preop Departure 10/30/19 14:57:00 Last Modified By: Cara Mo RN 10/30/19 16:49:10 Post-Care Text: Patient is prepared mentally and physically and is ready for surgery. The patient remains free from s/s of injury. Patient/family express understanding of plan of care and participate in decisions affecting his or her perioperrative plan of care. Allergies documented appropriately. Patient identifiers and consent correct. General Comments: Patient arrives ambulatory. Patient denies recent cold/flu symptoms, SOB, diabetes, chest pain, or defibrillator/pacemake r. Pt does have sleep apnea- uses CPAP at night. 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 There was fissuring that went down to the bone and there was frayed fibrillated cartilage change and into the joint. Additionally there was a complex tear in the posterior horn of medial meniscus. The articular cartilage medially was thinned down but no areas of exposed bone and laterally the knee looked normal. Procedure summary: Patient was given a general anesthetic the knee was examined there is no obvious instability she had good range of motion. The leg was positioned in a leg dorsey and sterilely prepped and draped in usual fashion. A timeout was taken. An inferior lateral portal was established upon entering the patellofemoral joint articular cartilage was noted to be irregular with fibrillated tissue and some fissuring that appeared to go to the bone. Utilizing a 4 oh aggressor plus this was shaved back to a stable base. In the medial compartment there was a complex tear of the posterior horn the medial meniscus. Utilizing a meniscal biter and a 4 oh resector. A partial medial meniscectomy was performed. I noted some thinning of the articular weightbearing surface of the medial femoral condyle but I did not see any areas of exposed bone. In the notch the ACL and PCL were both intact In the lateral compartment the articular cartilage was intact the meniscus was grossly normal. Each compartment was revisited the joint was irrigated and evacuated and the portals were closed with nylon sutures [Electronically Signed on: 10/30/2019 15:53 EDT] Savage Roberson DO [Verified on: 10/30/2019 15:53 EDT] Savage Roberson DO [facility] Patient Handouton 10-30-[address] MESA POST OPERATIVE KNEE ARTHROSCOPY INSTRUCTIONS SURGEONS WRITTEN INSTRUTCTIONS: -If you have been given a cryo cuff after surgery you should use it about 20 min/hour for the first 24 hours. After that it is optional. TIP: Many patients prefer to use it a little longer because it helps to reduce the pain. -You should take it easy for the first 3 days following surgery. You should be a ?couch potato? and get up to eat and go to the bathroom. After the first 3 days, you may gradually increase your activities as tolerated. -Change your dressing in 1 day. If the wounds are clean and dry you can cover them with a band-aid. -You may shower in 1 day. DO NOT submerge the wound under water as in a bathtub, swimming pool, or hot tub. -You may bear weight as tolerated. Using crutches or assisted devices are not required. -You should elevate your extremity -If you have any questions or concerns, please call the office at [phone] [facility] Test Urine U Preg Negative [facility] Comment on above: Performed By: #### 3 [id number] #### [facility] (DEFAULT) [address] [place] [address] U Preg Internal Control Pass [facility] Comment on above: Performed By: #### 3 [id number] #### [facility] (DEFAULT) [address] [place] [address] SARS-CoV-2 (COVID-19) PCRon 10-30-2019 COVID-19 PCR Not Detected Normal Not Detected [facility] Comment on above: Performed By: #### 6 [id number] ####[facility] (DEFAULT)[address] [place] [address]192 Progress Note - Nurseon 10-02 Progress Note - Nurse Spoke with pt and informed her to be here at 1330 and NPO after MN, she verbalizes understanding. [Electronically Signed on: 10/27/2019 13:45 EDT] Meseret Del Angel RN [Verified on: 10/27/2019 13:45 EDT] Meseret Del Angel RN [facility] .Auto Diff 10-25-2019 Auto Talbot % 7 % Normal 05-14 [facility] Comment on above: Performed By: #### 1 [id number], [id number], [id number] ####[facility] (DEFAULT)[address] [place] [address] 64340 Baso Abs# 0.0 x10 Normal 0.0-0.2 [facility] Comment on above: Performed By: #### 1 [id number], [id number], [id number] ####[facility] (DEFAULT)[address] [place] [address] 52056 Basophils/100 WBC (Bld) 0.4 % Normal 0.2-2.0 [facility] Comment on above: Performed By: #### 1 [id number], [id number], [id number] ####[facility] (DEFAULT)[address] [place] [address] 38698 Eos Abs# 0.2 x10 Normal 0.0-0.4 [facility] Comment on above: Performed By: #### 1 [id number], [id number], [id number] ####[facility] (DEFAULT)[address] [place] [address] 34211 Eosinophils/100 WBC (Bld) 2.0 % Normal 0.9-4.0 [facility] Comment on above: Performed By: #### 1 [id number], [id number], [id number] ####[facility] (DEFAULT)[address] [place] [address] 55082 Lymphocytes (Bld) [#/Vol] 1.6 x10 Normal 1.3-2.9 [facility] Comment on above: Performed By: #### 1 [id number], [id number], [id number] ####[facility] (DEFAULT)[address] [place] [address] 14640 Lymphocytes/100 WBC (Bld) 19 % Normal 14-48 [facility] Comment on above: Performed By: #### 1 [id number], [id number], [id number] ####[facility] (DEFAULT)[address] [place] [address] 16163 Talbot Abs# 0.6 x10 Normal 0.0-0.8 [facility] Comment on above: Performed By: #### 1 [id number], [id number], [id number] ####[facility] (DEFAULT)[address] [place] [address] 04258 Neut Abs# 6.0 x10 Normal 1.5-9.2 [facility] Comment on above: Performed By: #### 1 [id number], [id number], [id number] ####[facility] (DEFAULT)[address] [place] [address] 54816 Neutrophils/100 WBC (Bld) 71 % Normal 44-88 [facility] Comment on above: Performed By: #### 1 [id number], [id number], [id number] ####[facility] (DEFAULT)[address] [place] [address] Standardon 10-25-2019 eGFR Non AA >60 [facility] Comment on above: Performed By: #### 1 [id number], [id number], [id number] ####[facility] (DEFAULT)[address] [place] [address] 95345 eGFR AA >60 [facility] Comment on above: Result Comment: Physics Department Chair jaimee Kidney disease could be indicated at eGFRs of less than 60 ml/min/1.73m2. Kidney Failure is indicated at less than 15 ml/min/1.73m2 Performed By: #### 1 [id number], [id number], [id number] ####[facility] (DEFAULT)[address] [place] [address] 56098 Anion gap [Moles/Vol] 14.0 mmol/L Normal 5.0-19.0 [facility] Comment on above: Performed By: #### 1 [id number], [id number], [id number] ####[facility] (DEFAULT)[address] [place] [address] 15434 Calcium [Mass/Vol] 9.2 mg/dL Normal 8.9-10.3 [facility] Comment on above: Performed By: #### 1 [id number], [id number], [id number] ####[facility] (DEFAULT)[address] [place] [address] 73090 Chloride [Moles/Vol] 104 mmol/L Normal 101-111 [facility] Comment on above: Performed By: #### 1 [id number], [id number], [id number] ####[facility] (DEFAULT)[address] [place] [address] 12185 CO2 [Moles/Vol] 24 mmol/L Normal 21-32 [facility] Comment on above: Performed By: #### 1 [id number], [id number], [id number] ####[facility] (DEFAULT)[address] [place] [address] 72131 Creatinine [Mass/Vol] 0.63 mg/dL Normal 0.60-1.30 [facility] Comment on above: Performed By: #### 1 [id number], [id number], [id number] ####[facility] (DEFAULT)[address] [place] [address] 95434 Glucose [Mass/Vol] 91.0 mg/dL Normal 74.0-118.0 [facility] Comment on above: Performed By: #### 1 [id number], [id number], [id number] ####[facility] (DEFAULT)[address] [place] [address] 49952 Osmolality [Osmolality] 277 mOsm/L [facility] Comment on above: Performed By: #### 1 [id number], [id number], [id number] ####[facility] (DEFAULT)[address] [place] [address] 38657 Potassium [Moles/Vol] 3.7 mmol/L Normal 3.6-5.1 [facility] Comment on above: Performed By: #### 1 [id number], [id number], [id number] ####[facility] (DEFAULT)[address] [place] [address] 19508 Sodium [Moles/Vol] 138.0 mmol/L Normal 136.0-144.0 [facility] Comment on above: Performed By: #### 1 [id number], [id number], 5458436 ####[facility] (DEFAULT)[address] [place] [address] 64022 Urea nitrogen [Mass/Vol] 18 mg/dL Normal 8-26 [facility] Comment on above: Performed By: #### 1 [id number], [id number], [id number] ####[facility] (DEFAULT)[address] [place] [address] 19271 Urea nitrogen/Creatinine [Mass ratio] 29.0 mg/mg High 4.6-16.2 [facility] Comment on above: Performed By: #### 1 [id number], [id number], 6860539 ####[facility] (DEFAULT)[address] [place] [address] CBC w/ Auto Diffon 0 Erythrocyte distribution width (RBC) [Ratio] 12.8 % Normal 11.5-15.0 [facility] Comment on above: Performed By: #### 1 [id number], [id number], [id number] ####[facility] (DEFAULT)[address] [place] [address] Hematocrit (Bld) [Volume fraction] 40.2 % Normal 33.7-40.4 [facility] Comment on above: Performed By: #### 1 [id number], [id number], 0579556 ####[facility] (DEFAULT)[address] [place] [address] Hemoglobin (Bld) [Mass/Vol] 12.9 g/dL Normal 11.3-15.9 [facility] Comment on above: Performed By: #### 1 [id number], [id number], 4995189 ####[facility] (DEFAULT)[address] [place] [address] 56852 Man Diff? Auto Normal [facility] Comment on above: Performed By: #### 1 [id number], [id number], 4560120 ####[facility] (DEFAULT)[address] [place] [address] 80910 MCH (RBC) [Entitic mass] 32 pg Normal 24-34 [facility] Comment on above: Performed By: #### 1 [id number], [id number], 8746491 ####[facility] (DEFAULT)[address] [place] [address] 70045 MCHC (RBC) [Mass/Vol] 32 g/dL Normal 26-37 [facility] Comment on above: Performed By: #### 1 [id number], [id number], 6267508 ####[facility] (DEFAULT)[address] [place] [address] 93748 MCV (RBC) [Entitic vol] 98 fL Normal 81-100 [facility] Comment on above: Performed By: #### 1 [id number], [id number], 9093758 ####[facility] (DEFAULT)[address] [place] [address] 83590 Platelet mean volume (Bld) [Entitic vol] 11.2 fL High 6.3-10.2 [facility] Comment on above: Performed By: #### 1 [id number], [id number], 5605702 ####[facility] (DEFAULT)[address] [place] [address] 78201 Platelets (Bld) [#/Vol] 270 x10 Normal 138-427 [facility] Comment on above: Performed By: #### 1 [id number], [id number], 2967111 ####[facility] (DEFAULT)[address] [place] [address] 20239 RBC (Bld) [#/Vol] 4.09 x10 Normal 3.70-5.30 [facility] Comment on above: Performed By: #### 1 [id number], [id number], 6182482 ####[facility] (DEFAULT)[address] [place] [address] 02503 WBC (Bld) [#/Vol] 8.5 x10 Normal 3.5-10.5 [facility] Comment on above: Performed By: #### 1 [id number], [id number], 4874892 ####[facility] (DEFAULT)[address] [place] [address] 22655 Provider Orderson 10-12-2019 Provider Orders [id number] 0OTGTIFF Normal [facility] Coding Summaryon 09-29-2019 Coding Summary CODING DATE: 09/29/2019 FINAL [facility] STATUS: Home PAYOR: [employer] APC DESCRIPTION 5523 Level 3 Imaging without Contrast ADMIT DX: REASON FOR VISIT DX: M25.571 Pain in right ankle and joints of right foot S86.011A Strain of right Achilles tendon, initial encounter FINAL DX: PRINCIPAL: M25.571 Pain in right ankle and joints of right foot SECONDARY: S86.011A Strain of right Achilles tendon, initial encounter PYMT PROC APC STAT DESCRIPTION DOCTOR NAME DATE NOTE: The code number assigned matches the documented diagnosis and / or procedure in the patient's chart. However, the narrative phrase printed from the coding software may appear abbreviated, or result in slightly different terminology. Coded By: Lori Padilla Date Saved: 09/29/2019 08:27 am [facility] Rad - MRI Reporton 0 Rad - MRI Report [id number] [facility] Information[facility] Release of Information [id number] [facility] LE Joint w/o Contrast Le fton 09-27-2019 MRI LE Joint w/o Contrast Left HISTORY: Pain along the lateral aspect of the left knee since June. Evaluate for internal derangement of the knee. MRI LE JOINT W/O CONTRAST LEFT: 09/27/2019 11:50 AM EDT COMPARISON: None. TECHNIQUE: Coronal and sagittal proton-density fat-saturated images, sagittal T1, T2, and axial STIR images of the left knee were obtained without contrast. FINDINGS: JOINT SPACES: There is a moderate-sized joint effusion. There appear to be mild degenerative changes of the medial femorotibial compartment with mild cartilage thinning and small marginal osteophytes. There also appear to be mild degenerative changes of the patellofemoral compartment with patchy grade 2 chondromalacia of the patellar cartilage. The remaining articular cartilage appears grossly within normal limits. LIGAMENTS AND TENDONS: There is medial bowing of the medial collateral ligament at the joint line, but the ligament appears of normal size and signal intensity. The lateral collateral ligament, posterior cruciate ligament, iliotibial band, patellar tendon, and visualized distal quadriceps tendon appear within normal limits. The anterior cruciate ligament appears within normal limits. MENISCI: There is a complex morphology flap tear involving the free edge and undersurface of the body and posterior horn of the medial meniscus. There is a small meniscal flap fragment flipped into the inferior aspect of the medial gutter as seen on image 20 of the coronal sequence. There is a small linear focus of increased signal intensity involving the superior articular surface of the peripheral third of the anterior horn of the lateral meniscus as best seen on the sagittal proton-density fat-saturated sequence. BONES: There is evidence of red marrow in the distal femoral metadiaphysis and the proximal tibia and fibular metadiaphyses. There is a small focus of subchondral bone marrow edema involving the medial aspect of the medial tibial plateau. MUSCLES AND SOFT TISSUES: The visualized musculature appears of normal signal intensity. There is a moderate-sized, multiloculated Mc's cyst. There is soft tissue swelling along the anterior aspect of the knee. IMPRESSION: 1. Complex flap tear of the body and posterior horn of the medial meniscus with a small meniscal flap fragment flipped into the inferior aspect of the medial femorotibial gutter. There is a mild stress reaction in the adjacent medial aspect of the medial tibial plateau. 2. Possible small vertical longitudinal tear of the peripheral third of the superior articular surface of the anterior horn lateral meniscus. 3. 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 4. Moderate-sized joint effusion and moderate-sized Mc's cyst. 5. No ligament injury is seen. Final Dictated by: Heber Pedraza Dictated DT/TM: 09/28/19 10:45 Signed (Electronic Signature): Heber Pedraza 09/28/19 11:43 a Technologist: [facility] Vital Signs Date Time Vital Sign Value Performing Clinician Facility 06-03-2023 15:32-0500 Body mass index (BMI) [Ratio] 40.62 kg/m2 Jovon DAY Work Phone: [facility] 06-03-2023 15:32-0500 Body weight 94.35 kg Jovon DAY Work Phone: [facility] 06-03-2023 15:32-0500 Diastolic blood pressure 93 mm[Hg] Jovon DAY Work Phone: [facility] 06-03-2023 15:32-0500 Heart rate 79 /min Jovon Mcdowell APRN-[employer] Work Phone: [employer] 06-03-2023 15:32-0500 Systolic blood pressure 172 mm[Hg] Jovon Mcdowell APRN-[employer] Work Phone: [employer] 06-03-2023 13:15-0500 Body height 154.94 cm Aparna Campo Other [employer] Other 06-03-2023 13:15-0500 Body mass index (BMI) [Ratio] 39.11 kg/m2 Aparna Campo Other [employer] Other 06-03-2023 13:15-0500 Body weight 93.9 kg Aparna Campo Other [employer] Other 06-03-2023 13:15-0500 Diastolic blood pressure 80 mm[Hg] Aparna Campo Other [employer] Other 06-03-2023 13:15-0500 SaO2% (BldA) [Mass fraction] 95 % Aparna Campo Other [employer] Other 06-03-2023 13:15-0500 Systolic blood pressure 138 mm[Hg] Aparna Campo Other [employer] Other 05-30-2023 11:30-0500 Body height 154.94 cm Aparna Campo Other [employer] Other 05-30-2023 11:30-0500 Body mass index (BMI) [Ratio] 38.92 kg/m2 Aparna Campo Other [employer] Other 05-30-2023 11:30-0500 Body temperature 98 [degF] Aparna Campo Other [employer] Other 05-30-2023 11:30-0500 Body weight 93.44 kg Aparna Campo Other [employer] Other 05-30-2023 11:30-0500 Respiratory rate 18 /min Aparna Campo Other [employer] Other 05-30-2023 11:30-0500 SaO2% (BldA) [Mass fraction] 97 % Aparna Campo Other [employer] Other 02-13-2021 12:15-0400 Body height 154.94 cm Christiana Hagenmond Other [employer] Other 02-13-2021 12:15-0400 Body mass index (BMI) [Ratio] 45.34 kg/m2 Christiana Anel Other [employer] Other 02-13-2021 12:15-0400 Body temperature 98.9 [degF] Christiana Hagenmond Other [facility] Other 02-13-2021 12:15-0400 Body weight 108.86 kg Christiana Anel Other [employer] Other 02-13-2021 12:15-0400 Respiratory rate 18 /min Christiana Anel Other [facility] Other 02-13-2021 12:15-0400 SaO2% (BldA) [Mass fraction] 96 % Christiana Anel Other [employer] Other Encounters Encounter Date Encounter Type Care Provider Facility Start: 07-06-2023 End: 07-06-2023 Evaluation and management of inpatient HAZEL D LAMBERT [facility] Start: 07-05-2023 End: 07-06-2023 Evaluation and management of inpatient VISHAL LEGER [facility] Start: 06-03-2023 End: 06-03-2023 ambulatory JOVON Paz MCDOWELL [facility] Start: 06-03-2023 End: 06-03-2023 Patient encounter procedure Jovon A Mcdowell [employer] Work Phone: [facility] Comment on above: Encounter for screen ing colonoscopy (Primary Dx) Start: 06-03-2023 End: 06-03-2023 ambulatory Lm Ramírez Facility:[facility] Start: 06-03-2023 Office outpatient vi sit 15 minutes Aparna Campo [facility] Start: 06-03-2023 End: 06-03-2023 ambulatory DO Lm Giraldoe Work Phone: [facility] Work Phone: Start: 06-03-2023 End: 06-03-2023 Patient encounter procedure DO mL Ramírez Work Phone: [facility] Work Phone: Start: 05-30-2023 End: 05-30-2023 ambulatory Aparna Campo Other [facility] Other Start: 05-30-2023 Office outpatient vi sit 15 minutes Aparna Campo [facility] Start: 05-13-2023 Telephone encounter Jovon Mcdowell [employer] Work Phone: [facility] Start: 04-30-2023 End: 04-30-2023 ambulatory COLT CALLES Not Available Start: 04-15-2022 End: 04-15-2022 ambulatory DO Lm Giraldoe Work Phone: [facility] Work Phone: Start: 04-15-2022 End: 04-15-2022 Patient encounter procedure DO Lm Giraldoe Work Phone: [facility] Start: 03-03-2022 End: 03-03-[address] LM RAMÍREZ Facility:[facility] Start: 01-27-2022 End: 01-28-[address] CORETTA YOO Facility:[facility] Start: 12-18-2021 End: 12-19-[address] LM RAMÍREZ Facility:[facility] Start: 04-22-2021 Encounter for preprocedural laboratory examination DR CORETTA YOO [facility] Start: 04-21-2021 End: 04-21-[address] CORETTA YOO Facility:[facility] Start: 04-17-2021 End: 04-18-[address] CORETTA YOO Facility:[facility] Start: 04-17-2021 End: 04-18-2021 Encounter for preprocedural laboratory examination DR CORETTA YOO Facility:[facility] Start: 04-12-2021 Encounter for preprocedural cardiovascular examination DR CORETTA YOO [facility] Start: 04-08-2021 End: 04-09-[address] LM RAMÍREZ Facility:[facility] Start: 04-08-2021 End: 04-09-2021 Encounter for preprocedural cardiovascular examination DR LM RAMÍREZ Facility:[facility] Start: 02-13-2021 Office outpatient vi sit 15 minutes [facility] Plan of Treatment Date Care Activity Detail Author Start: 06-03-2024 Adult BMI Screening Adult BMI Screen ing [facility] Start: 06-03-2024 Tobacco Screening Tobacco Screening [facility] Start: 06-03-2023 End: 06-03-2023 Patient encounter procedure 06/03/2023 3:30 PM EST Office Visit [facility] [address] [place] [id number] Jovon Mcdowell APRN-LISS [address] [place] [address] [facility] Start: 01-01-2023 COVID-19 Vaccine () COVID-19 Vaccine () [facility] Start: 01-01-2023 Influenza vaccination Influenza Vacc ine [facility] Start: 06-09-2022 Adult BMI Screening Adult BMI Screen ing [facility] Start: 06-09-2022 Tobacco Screening Tobacco Screening [facility] Start: 10-18-2018 DTaP,Tdap and Td Vaccines (2 - Td or Tdap) DTaP,Tdap and Td Vaccines (2 - Td or Tdap) [facility] Start: 12-02-1995 Screening for malign ant neoplasm of cervix Pap Smear [facility] Start: 1986 Depression Screening Depression Scre ening [facility] End: 06-03-2024 Colonoscopy Colonoscopy GI Routine Encounter for screening colonoscopy 1 Occurrences starting 06/03/2023 until 06/03/2024 [facility] Work Phone: Comment on above: 1 Occurrences starti ng 06/03/2023 until 06/03/2024 Immunizations Immunization Date Immunization Notes Care Provider Tone schulte 01-21-2021 influenza virus vaccine, unspecified formulation Jovon Mcdowell [employer] Work Phone: [facility] 04-11-2017 KENALOG - 10 mg Christiana lopez Other [employer] Other Payers Date Payer Category Payer Self-pay [id number] 2016 Unknown [employer] [id number] 2016-Present [phone] [address] [place] [address] [id number] 1974 Unknown [id number] 1974 Unknown [id number] [id number] 1974 Unknown [id number] [id number] 1974 Unknown [id number] [id number] 1974 Unknown [id number] [id number] 1974 Unknown [id number] 2.16.840.1.904812.3.579.2.1259 1974 Unknown [id number] [id number] 1974 Unknown [id number] 2.16.840.1.342992.3.579.2.1286 1974 Unknown [id number] 2.16.840.1.588315.3.579.2.1286 1974 Unknown [id number] 2.16.840.1.589741.3.579.2.1286 1974 Unknown [id number] [id number] 1959 Self-pay [id number] 1959 Unknown [id number] [id number] Unknown [id number] [id number] Unknown [id number] [id number] Social History Date Type Detail Facility Unknown if ever smoked [facility] Other Start: 10-12-2018 End: 06-09-2021 Sex Assigned At [facility] Other Start: 1975 Sex Assigned At Female [facility] Start: 06-09-2021 End: 06-03-2023 Tobacco smoking status VAIS Never smoked tobacco [facility] Start: 06-09-2021 End: 06-03-2023 Tobacco use and exposure Smokeless tobacco non-user [facility] Start: 06-09-2021 End: 06-03-2023 Alcohol intake Current drinker of alcohol (finding) [facility] Start: 10-12-2018 End: 06-09-2021 History of Social function [facility] Housing Instability Unknown [facility] Start: 1975 Sex Assigned At Not on file [facility] Start: 06-03-2023 Alcohol Comment Socially; 1-4 beers once/month [facility] Start: 05-31-2023 Gender identity Identifies as female gender (finding) [facility] Start: 05-31-2023 Sexual orientation Heterosexual (finding) [facility] Clinical Notes 02-13-2021 to 06-03-2023 Jovon Mcdowell, [employer] - 06/03/2023 3:30 PM EST Note Date & Type Note Facility 06-03-2023 History of Present illness Narrative Images from the original note were not included. Chief Complaint: Colon cancer screening History of Present Illness Karen Preciado is a 47 y.o. female who presents to the office for colon cancer screening. She denies any changes in her bowels including diarrhea, constipation, abdominal pain, melena, hematochezia, unexplained weight loss. She has a history of cholecystectomy around [address] Luo. She reprots looser stools since. She has 1-2 bowel movement daily. Could eat more fiber. There is a family history of colon cancer in her maternal grandma. Review of Systems Constitutional: Negative for fever and unexpected weight change. HENT: Negative for trouble swallowing. Respiratory: Negative for shortness of breath. Cardiovascular: Negative for chest pain. Gastrointestinal: Negative for nausea, vomiting, abdominal pain, diarrhea, constipation, blood in stool and black tarry stool. Genitourinary: Negative for dysuria and difficulty urinating. Musculoskeletal: Negative for gait problem. Skin: Negative for rash and wound. Neurological: Negative for dizziness, weakness and light-headedness. Hematological: Does not bruise/bleed easily. Psychiatric/Behavioral: Negative for confusion. Past Medical History: Diagnosis Date Arthritis September 2019 Found in knees during meniscus repair surgery. Asthma Hypertension Jaundice 73 Jaundice at . PMDD (premenstrual dysphoric disorder) Pneumonia I have had pneumonia several times. I am currently vaccinated with Prevnar. Varicella 1983 Visual impairment I ve had corrective lenses since age 6. Past Surgical History: Procedure Laterality Date ACHILLES TENDON REPAIR CHOLECYSTECTOMY DILATION AND CURETTAGE OF UTERUS 04/2021 EYE SURGERY 04-05-2008 LASIK MENISCECTOMY Allergies Allergen Reactions Azithromycin Erythromycin Current Outpatient Medications: acetylcysteine (NAC) 600 mg capsule, Take 2 capsules (1,200 mg total) by mouth in the morning and 2 capsules (1,200 mg total) before bedtime., Disp: , Rfl: albuterol (PROVENTIL HFA;VENTOLIN HFA) 90 mcg/actuation inhaler, Inhale 2 puffs every 6 (six) hours as needed for wheezing., Disp: , Rfl: cetirizine-pseudoephedrine (ZyrTEC-D) 5-120 mg per 12 hr tablet, Take 1 tablet by mouth in the morning and 1 tablet before bedtime., Disp: , Rfl: cholecalciferol, vitamin D3, (VITAMIN D3 ORAL), Take by mouth daily., Disp: , Rfl: FLUoxetine (PROzac) 10 mg capsule, Take 1 capsule (10 mg total) by mouth in the morning., Disp: , Rfl: lisinopriL (PRINIVIL,ZESTRIL) 20 mg tablet, Take 1 tablet (20 mg total) by mouth in the morning., Disp: , Rfl: montelukast (SINGULAIR) 10 mg tablet, Take 1 tablet (10 mg total) by mouth nightly., Disp: , Rfl: MOUNJARO 10 mg/0.5 mL pen injector, Inject under the skin once a week., Disp: , Rfl: sod sulf-pot chloride-mag sulf 1.479-0.188- 0.225 gram tablet, Please see instructional sheet given by physicians office., Disp: 24 tablet, Rfl: 0 Social History Socioeconomic History Marital status: Single Spouse name: Not on file Number of children: Not on file Years of education: Not on file Highest education level: Not on file Occupational History Not on file Tobacco Use Smoking status: Never Smokeless tobacco: Never Substance and Sexual Activity Alcohol use: Yes Comment: Socially; 1-4 beers once/month Drug use: Never Sexual activity: Not Currently Partners: Male control/protection: Condom Other Topics Concern Not on file Social History Narrative Not on file Social Determinants of Health Financial Resource Strain: Not on file Food Insecurity: Not on file Transportation Needs: Not on file Physical Activity: Not on file Stress: Not on file Social Connections: Not on file Interpersonal Safety: Not on file Housing Instability: Not on file Family History Problem Relation Age of Onset Arthritis Mother Knees; hips Hypertension Mother Miscarriages / Stillbirths Mother Arthritis Father Knees Asthma Father Hypertension Father Stroke Father Diabetes Maternal Grandfather Hypertension Maternal Grandfather Colon cancer Maternal Grandmother Hypertension Maternal Grandmother Stroke Maternal Grandmother Vision loss Maternal Grandmother Asthma Paternal Grandfather COPD Paternal Grandfather Heart disease Paternal Grandfather Hypertension Paternal Grandfather Breast cancer Paternal Aunt Objective Physical Exam Constitutional: General: She is not in acute distress. Appearance: Normal appearance. She is not ill-appearing. HENT: Head: Normocephalic and atraumatic. Mouth/Throat: Mouth: Mucous membranes are moist. Eyes: Pupils: Pupils are equal, round, and reactive to light. Cardiovascular: Rate and Rhythm: Normal rate. Pulmonary: Effort: Pulmonary effort is normal. No respiratory distress. Abdominal: General: There is no distension. Palpations: Abdomen is soft. Tenderness: There is no abdominal tenderness. Musculoskeletal: General: Normal range of motion. Skin: General: Skin is warm and dry. Neurological: Mental Status: She is alert and oriented to person, place, and time. Mental status is at baseline. Vital Signs: Blood pressure (!) 172/93, pulse 79, weight 94.3 kg (208 lb). Respiratory Source: No data recorded Admission Weight: Weight: 94.3 kg (208 lb) Labs Lab Results Component Value Date WBC 17.0 (H) 06/09/2021 HGB 12.4 06/09/2021 HCT 37.3 06/09/2021 MCV 93 06/09/2021 PLT 269 06/09/2021 Lab Results Component Value Date GLU 242 (H) 06/09/2021 CALCIUM 9.0 06/09/2021 K 3.6 06/09/2021 CO2 22 06/09/2021 CL 100 06/09/2021 BUN 9 06/09/2021 CREATININE 0.67 06/09/2021 No results found for: AMYLASE Lab Results Component Value Date LIPASE 65 (H) 06/09/2021 Lab Results Component Value Date ALT 18 06/09/2021 AST 15 06/09/2021 ALKPHOS 58 06/09/2021 No results found for: INR , PROTIME Assessment Karen Preciado is a 47 y.o.female who presents to the office for screening colonoscopy. Plan Colonoscopy with possible biopsy and/or polypectomy. Risks, benefits, and alternatives discussed with patient. Educated on bowel evacuation preparation. Patient verbalizes understanding and wishes to proceed. Evaluation included: Preparing to see the patient (e.g., review of tests) Obtaining and/or reviewing separately obtained history Performing a medically appropriate examination and/or evaluation Counseling and educating the patient/family/caregiver Referring and communicating with other health home care specialist Encounter for screening colonoscopy [Z12.11] SHAY ZUNIGA [facility] [place] This note was created with the assistance of a speech recognition program. While intending to generate a timely document that accurately reflects the content of the visit, no guarantee can be provided that every grammatical or spelling mistake has been or will be identified or corrected. Thank you for your understanding. SHAY Zuniga 06/03/23 1600 documented in this encounter [facility] 06-03-2023 Evaluation note Encounter Date Diagnosis Assessment Notes Jun, Obstructive sleep apnea (ICD-10 - G47.33) Fortunately, the patient is using and benefiting from treatment. Download was reviewed with patient, Current pressure is controlling apnea well, And we will make no changes at this time. A prescription was sent to the [facility] for new supplies throughout the year. She was encouraged to continue to use her machine nightly, throughout the entire night as this does provide clinical benefit. She will follow-up in the sleep clinic in 1 year or sooner if problems. Jun, Primary hypertension (ICD-10 - I10) Positive effects of controlled HIRO and hypertension were reviewed. Control of sleep apnea will frequently have a positive effect on blood pressure control, and may additionally reduce blood pressure lability. Jun, BMI 39.0-39.9,adult (ICD-10 - Z68.39) Pt's weight is down since last OV. Positive effects of weight loss on HIRO were reviewed. She was advised to follow diet modification and increase activity as tolerated. We will continue to monitor. Jun, Other Call if any questions or problems. Patient is advised to work on healthy diet choices and appropriate servings, weight control, regular exercise as directed, and reduce fat intake. Use machine regularly, and keep up with mask changes as needed. Call if problems with mask toleration, increased sleepiness, or poor response to treatment. [facility] Other 01-28-2024 Evaluation note* Encounter Date Diagnosis Assessment Notes Treatment Notes Treatment Clinical Notes May, Acute pansinusitis (ICD-10 - J01.40) rx sent, take as directed. diflucan was also sent per pt request for frequent yeast infections with atb use. may continue symptomatic tx c otc meds prn. recommended hot steam baths and/or cool mist humidifier. push rest/fluids. reinforced universal infection control protocols and good hand hygiene for infection control. immediate eval if warning s/s of intractable fevers, respir distress or other emergent symptoms. otherwise f/u with PCP INB despite treatment. [facility] Other 01-11-2024 Miscellaneous Notes* Telephone Encounter - Yolanda Kendrick - 05/13/2023 12:59 PM EST Called Karen regarding the screening colonoscopy referral that our office received from Dr. Calles, I left a message on her voicemail to call the office back to schedule an appointment. * Telephone Encounter - Yolanda Kendrick - 05/13/2023 12:59 PM EST Called Karen regarding the referral that our office received, I left a message on her voicemail to call the office back to schedule an appointment. * Telephone Encounter - Yolanda Kendrick - 05/13/2023 12:59 PM EST Karen called the office back and we scheduled her an appointment on 06/03/2023. [facility] Note* Telephone Encounter - Yolanda Kendrick - 05/13/2023 12:59 PM EST Called Karen regarding the screening colonoscopy referral that our office received from Dr. Calles, I left a message on her voicemail to call the office back to schedule an appointment. [facility]01-11-2024 Telephone encounter Note* Telephone Encounter - Yolanda Kendrick - 05/13/2023 12:59 PM EST Called Karen regarding the referral that our office received, I left a message on her voicemail to call the office back to schedule an appointment. [facility]01-11-2024 Telephone encounter Note* Telephone Encounter - Yolandapaz Kendrick - 05/13/2023 12:59 PM EST Karen called the office back and we scheduled her an appointment on 06/03/2023. [facility]10-14-2021 Evaluation note* Encounter Date Diagnosis Assessment Notes Treatment Notes Treatment Clinical Notes Jan, Contact with and (suspected) exposure to other viral communicable diseases (ICD-10 - Z20.828) Jan, Acute sinusitis, recurrence not specified, unspecified location (ICD-10 - J01.90) Drink plenty fluids, get plenty of rest. Take the Augmentin as prescribed until gone. Take the prednisone as prescribed until gone. Use the Flonase inhaler as prescribed until your symptoms improve. Continue your home medications as prescribed. Tylenol or Motrin for aches pains or fevers. Follow-up with your family physician if no improvement in 2 to 3 days. Jan, Other Additional time spent conducting pre-visit phone call, screening for symptoms, instructions on social distancing, application and removal of PPE, and cleaning of examination room, equipment and supplies was preformed. Patient education given for testing methodology and results. Patient care instructions given in writting by [facility] At Home document. [facility] Other Evaluation noteNo assessment information available [facility] Work Phone: Evaluation note* Diagnosis Encounter for screening colonoscopy- Primary documented in this encounter [facility] VideoJax SystemHistory general Narrative - Reported* Type Description Date Medical History Seasonal allergies Medical History Asthma Medical History Anxiety and depression Medical History HTN Medical History HIRO (obstructive sleep apnea) Surgical History cholecystectomy Surgical History lasik Surgical History oral surgery Surgical History wisdom teeth Surgical History fixed achilles right Surgical History knee arthroscopy left Hospitalization History see above Hospitalization History pneumonia [facility] Other InstructionsNot on filedocumented in this encounter [employer] SystemInstructionsNot on filedocumented in this encounter [facility] Purpose Family History No Family History Records FoundNo Family History Records FoundNo Family History Records FoundNo Family History Records FoundNo Family History Records FoundNo Family History Records Found Advance Directives No Advanced Directives Records Found Advance Directive Response Recorded Date/ Time Advance Directives No October 27 6:19am Hospital Course Note [facility] SURGERY Clinical Discharge Summary PERSON INFORMATION Name KAREN PRECIADO Age 43 Years 1975 Sex FEMALE Language Zambian PCP Lm Ramírez DO Marital Status Single Med Service Ambulatory Surgery MRN [id number] Acct# Arrival 10/30/2019 13:32:31 Visit Reason SURGERY-LEFT KNEE ARTHROSCOPY Acuity LOS 018 01:31 Address: [place] [address] Comment: PROVIDER INFORMATION VITALS INFORMATION Vital Sign Triage Latest Temp Oral Temp Temporal Temp Intravascular Temp Axillary Temp Rectal 02 Sat 97 % 100 % Respiratory Rate Peripheral Pulse Rate Apical Heart Rate Blood Pressure / 94 mmHg / 70 mmHg Comment: MEDICAL INFORMATION Allergy Info: azithromycin; erythromycin Prescriptions Given: albuterol (Ventolin HFA 90 mcg/inh inhalation aerosol) 1 puff(s) Inhalation Every 6 hours as needed for wheezing. cholecalciferol (Vitamin D3 10,000 intl units (250 mcg) oral capsule) 1 cap(s) Oral every other day. cholecalciferol (Vitamin D3 5000 intl (more content not included)... Note Patient: KAREN PRECIADO Age: 43 years Sex: FEMALE : 1975 Associated Diagnoses: None Author: Nasim Rausch MD Postoperative Information Post Operative Note Health Status Allergies: Allergic Reactions (All) Severity Not Documented Azithromycin- Hives. Erythromycin- Vomiting. Problem list (past medical history): All Problems Asthma / SNOMED CT 630685317 / Confirmed Hypertension / SNOMED CT 5765564200 / Confirmed PMDD (premenstrual dysphoric disorder) / SNOMED CT 1537593 / Confirmed Sleep apnea / SNOMED CT 192111408 / Confirmed Physical Examination VS/Measurements Vital Signs (last 24 hrs) Last Charted Heart Rate Peripheral 76 bpm (OCT 29 13:45) Resp Rate 14 br/min (OCT 29 15:55) SBP 123 mmHg (OCT 29 15:55) DBP 70 mmHg (OCT 29 15:55) SpO2 100 % (OCT 29 15:55) Weight 107.3 kg (OCT 29 13:45) Assessment Anesthetic outcome No anesthetic complications noted. Plan Transfer/ Discharge: To home, Patient can be discharged from PACU when c (more content not included)... Procedure Findings Note Patient: KAREN PRECIADO Age: 43 years Sex: FEMALE : 1975 Associated Diagnoses: None Author: Nasim Rausch MD Postoperative Information Post Operative Note Health Status Allergies: Allergic Reactions (All) Severity Not Documented Azithromycin- Hives. Erythromycin- Vomiting. Problem list (past medical history): All Problems Asthma / SNOMED CT 277456273 / Confirmed Hypertension / SNOMED CT 4311754167 / Confirmed PMDD (premenstrual dysphoric disorder) / SNOMED CT 5322472 / Confirmed Sleep apnea / SNOMED CT 033891677 / Confirmed Physical Examination VS/Measurements Vital Signs (last 24 hrs) Last Charted Heart Rate Peripheral 76 bpm (OCT 29 13:45) Resp Rate 14 br/min (OCT 29 15:55) SBP 123 mmHg (OCT 29 15:55) DBP 70 mmHg (OCT 29 15:55) SpO2 100 % (OCT 29 15:55) Weight 107.3 kg (OCT 29 13:45) Assessment Anesthetic outcome No anesthetic complications noted. Plan Transfer/ Discharge: To home, Patient can be discharged from PACU when c (more content not included)... Chief Complaint and Reason for Visit Chief Complaint follow up [facility] Chief Complaint hiro, kvng childs ne- [facility] Additional Source Comments INFORMATION SOURCE (unrecogn ized section and content) DATE CREATED AUTHOR 06/04/2020 [facility] DATE CREATED AUTHOR AUTHOR'S ORGANIZ ATION 03/12/2022 [facility] DATE CREATED AUTHOR AUTHOR'S ORGANIZ ATION 05/02/2023 [facility] DATE CREATED AUTHOR AUTHOR'S ORGANIZ ATION 06/06/2023 [facility] DATE CREATED AUTHOR AUTHOR'S ORGANIZ ATION 06/11/2023 [facility] DATE CREATED AUTHOR AUTHOR'S ORGANIZ ATION 07/07/2023 [facility] REASON FOR VISIT (unrecogniz ed section and content) Reason Comments Colon Cancer Screening Screening colonos copy Specialty Diagnoses / Procedures Referred By Benny vora Referred To Contact General Surgery Diagnoses Encounter for screening for malignant neoplasm of colon Procedures [facility] COLONOSCOPY FLX DX W/COLLJ SPEC WHEN [facility] Colt Calles DO [address], [address] [place] [address] Vishal Leger DO [address] [place] [address] Referral ID Status Reason Start Date Expiration Date Visits Re quested Visits Authorized [id number] Closed 05/11/2023 11/07/2023 1 1 Care Teams (unrecognized sec tion and content) Team Status: Active Member Role Status Dates Lm Ramírez DO Primary Care Provider Active Team Status: Inactive Member Role Status Dates Lm Ramírez DO Primary Care Provider Active St art: June 03, 2023 End: June 03, 2023 Aparna Campo NP Attending Provider Active Start: June 03, 2023 End: June 03, 2023 Team Status: Inactive Member Role Status Dates Bart Brar MD Attending Provider Active Lm Ramírez DO Primary Care Provider Active Advertising Manager Relationship Specialty Start Date End Date DarrellLm [address] [place] [id number] PCP - General Family Medicine 06/09/21 Advertising Manager Relationship Specialty Start Date End Date RamírezLm frias [address] [place] [id number] PCP - General Family Medicine 06/09/21 Goals (unrecognized section and content) Goals may be documented in a n alternate section FOR RECORDS PERTAINING TO PATIENTS WHO ARE OR HAVE BEEN ENROLLED IN A CHEMICAL DEPENDENCY/SUBSTANCEABUSE PROGRAM, SOME INFORMATION MAY BE OMITTED. This clinical summary was aggregated from multiple sources. Caution should be exercised in using it in the provision of clinical care. This summary normalizes information from multiple sources, and as a consequence, information in this document may materially change the coding, format and clinical context of patient data. In addition, data may be omitted in some cases. CLINICAL DECISIONS SHOULD BE BASED ON THE PRIMARY CLINICAL RECORDS. [employer] provides no warranty or guarantee of the accuracy or completeness of information in this document.
== END 2024-04-28 10:12 | disposition home or self-care (01) ==
LOC: MAMMO 10:11
PROVIDERS: PCP Family Medicine; Visit Provider Obstetrics & Gynecology
DX: Z12.31 Encounter for screening mammogram for malignant neoplasm of breast (principal); Z80.3 Family history of malignant neoplasm of breast
CPT/HCPCS: 77063; 77067

== ENCOUNTER 2025-05-01 10:18 | Outpatient (OUT) | payer OTHER, SELFPAY ==
--- NOTE | 2025-05-01 10:21 | MM_ITS ---
Patient Name: SHABANA ROMERO MR#: [id number] : 1975 Exam Date: 05/01/2025 Ordering Doctor: DR YARIEL CALLES RADIOLOGY REPORT PROCEDURE: MM TOMOSYNTHESIS SCREENING BI COMPARISON: MM TOMOSYNTHESIS SCREENING BI, 04/28/2024. MM TOMOSYNTHESIS SCREENING BI, 04/06/2023. MG MAMM SCREEN 3D MITZY CAD, 01/27/2022. MG MAMM MITZY SCRN W CAD DIG, 01/17/2015. INDICATIONS: Screening Calculator Name NCI Breast Cancer Risk Assessment Tool 5 Year Breast Cancer Risk 1.20% Lifetime Breast Cancer Risk 10.80% Personal Breast Cancer No Personal Ovarian Cancer No Treatments None Family Cancers Grandmother-paternal with breast cancer at age ~35. LOCATION: [facility] BREAST COMPOSITION: The breasts are heterogeneously dense, which may obscure small masses. FINDINGS: RIGHT BREAST: No significant suspicious finding. LEFT BREAST: No significant suspicious finding. DIAGNOSTIC CATEGORY 1--NEGATIVE. RECOMMENDATIONS: ROUTINE MAMMOGRAM AND CLINICAL EVALUATION IN 12 MONTHS. Dictated by: Jesse Lovelace DO on 05/01/2025 at 11:55 Approved by: Jesse Lovelace DO on 05/01/2025 at 11:58
--- OUTSIDE RECORDS SUMMARY | 2025-05-01 10:21 | XMS_ITS | Clinical Summary ---
Author Organization [employer] Address [facility] [id number] [address] [place] [address] Care Team Providers Care Interactive Marketing Strategist Name Role Phone Lm Voss DO Primary Care Provider [phone] Allergies Active AllergyReactionsCriticalityNoted FdymHrsrmlljEflcepyfdwyp33/07/2022 Hldupptqblef98/07/2022 Medications MedicationSigDispense QuantityRefillsLast FilledStart DateEnd DateStatus montelukast (SINGULAIR) 10 mg tablet Take 1 tablet (10 mg total) by mouth nightly.Active cetirizine-pseudoephedrine (ZyrTEC-D) 5-120 mg per 12 hr tablet Take 1 tablet by mouth in the morning and 1 tablet before bedtime.Active lisinopriL (PRINIVIL,ZESTRIL) 20 mg tablet Take 1 tablet (20 mg total) by mouth in the morning.Active FLUoxetine (PROzac) 10 mg capsule Take 1 capsule (10 mg total) by mouth in the morning.Active MOUNJARO 10 mg/0.5 mL pen injector Inject under the skin once a week.05/11/2023ctive cholecalciferol, vitamin D3, (VITAMIN D3 ORAL) Take by mouth daily.Active acetylcysteine (NAC) 600 mg capsule Take 2 capsules (1,200 mg total) by mouth in the morning and 2 capsules (1,200 mg total) before bedtime.Active albuterol (PROVENTIL HFA;VENTOLIN HFA) 90 mcg/actuation inhaler Inhale 2 puffs every 6 (six) hours as needed for wheezing.Active Active Problems No known active problems Family History Medical HistoryRelationNameCommentsArthritisFatherJeffrey J BaltzellKneesAsthma FatherJeffrey J BaltzellHypertensionFatherJeffrey J BaltzellStrokeFatherJeffrey J BaltzellDiabetesMaternal GrandfatherCarl A SwartzHypertensionMaternal GrandfatherCarl A SwartzColon cancerMaternal GrandmotherShirley J Adriano HypertensionMaternal GrandmotherShirley J SwartzStrokeMaternal Grandmother Nitza J SwartzVision lossMaternal GrandmotherShirley J SwartzArthritisMother Ashlie K BaltzellKnees; hipsHypertensionMotherVicky K BaltzellMiscarriages / StillbirthsMotherVicky K BaltzellBreast cancerPaternal AuntChristine M Baltzell AsthmaPaternal GrandfatherWilliam M BaltzellCOPDPaternal GrandfatherWilliam M BaltzellHeart diseasePaternal GrandfatherWilliam M BaltzellHypertensionPaternal GrandfatherWilliam M BaltzellRelationNameStatusCommentsFatherJeffrey J Elvistzell Maternal GrandfatherCarl A SwartzMaternal GrandmotherShirley J SwartzMotherVicky K BaltzellPaternal AuntChristine M BaltzellPaternal GrandfatherWilliam M Ozzy Social History Tobacco UseTypesPacks/DayYears UsedDateSmoking Tobacco: NeverSmokeless Tobacco: Never Tobacco Cessation:Counseling Given: Not Answered Alcohol UseStandard Drinks/WeekCommentsYes0 (1 standard drink = 0.6 oz pure alcohol)Socially; 1-4 beers once/monthChildcareAnswerDate RecordedChildcare Pauembz7210/12/2018EmploymentAnswerDate WklakkkjEqcauwrchcQaifqwg09/12/2019 CommentsNoSex and Gender InformationValueDate RecordedSex Assigned at [facility]neo[facility]hab25/29/2024 1:56 PM ESTLegal RvkByifpr93/06/2015 11:46 AM EDTGender DqaeaaweQizrtl13/29/2024 1:56 PM ESTSexual ZrypmekaeyfUvvbvnjc75/29/2024 1:56 PM EST Last Filed Vital Signs Vital SignReadingTime TakenCommentsBlood Xeuvsmsz349/9307/05/2023 9:25 AM EST Rykqj5881/04/2024 9:25 AM MCEXewujjcelkz40.5 ??C (97.7 ??F)07/05/2023 7:22 AM ESTRespiratory Mzng474007/05/2023 9:25 AM ESTOxygen Fzhfkhoagc59%07/05/2023 9:25 AM ESTInhaled Oxygen Concentration--Cvvoyw68.5 kg (204 lb)07/05/2023 7:22 AM EST Nckevw153.4 cm (5')07/05/2023 7:22 AM ESTBody Mass Index39.8407/05/2023 7:22 AM EST Plan of Treatment Health MaintenanceDue DateLast DoneCommentsDepression Llzumuiqa65/01/1987Pap Smear12/02/1995DTaP,Tdap and Td Vaccines (2 - Td or Tdap)/ Adult BMI Fehinaohb77Tobacco Izfadcvrk76 Zoster (Shingles) Vaccine (1 of 2)5COVID-19 Vaccine (4 - season), 07/05/2020, 06/14/2020Influenza Uyllvtn7301/01/2025 01/23/2023, 01/28/2022, 01/21/2021, Additional history existsColonoscopy , 07/05/2023 Medical Devices Not on file Procedures Procedure NamePriorityDate/TimeAssociated DiagnosisCommentsPROVATION COLONOSCOPY Szcsgtp5107/05/2023 7:14 AM EST from Last 3 Months or Most Recently Relevant to Health Maintenance Results * Colonoscopy Report (07/05/2023 7:14 AM EST)Specimen (Source)Anatomical Location / LateralityCollection Method / VolumeCollection TimeReceived Time Narrative SYSTEMGENERATED, DOCUMENTATION - 07/05/2023 7:14 AM EST This order has been auto-finalized for image and report archival in PACs. *For full report details, please reach out to your physician. ??This image is visible to you in MyChart.* Authorizing ProviderResult TypeResult StatusMichael E Grillis DOIMG OR IMG ORDERABLESFinal Result from Last 3 Months or Most Recently Relevant to Health Maintenance [place] [address] Care Teams Team MemberRelationshipSpecialtyStart DateEnd Lm Voss DO [address] [place] [phone] PCP - GeneralFamily Medicine06/09/21
--- OUTSIDE RECORDS SUMMARY | 2025-05-01 10:21 | XMS_ITS | Clinical Summary ---
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 Role Phone Lm Voss MD Primary Care Provider [phone] Allergies Active AllergyReactionsCriticalityNoted DateCommentsAzithromycinHives,Itching 06/23/2009Dust Mite ExtractItching,Shortness of breath,ZkvlfqveJpkt05/01/1975 ErythromycinDiarrhea,GI azsnywjknoz76/01/1992Grass Pollen(K-O-R-T-Swt Rober) Itching,Runny nose,Shortness of breath,FtyiprjhOgzq66/23/2023 Medications MedicationSigDispense QuantityRefillsLast FilledStart DateEnd DateStatus Cholecalciferol (Vitamin D-3) 5000 UNIT/ML liquid 5,000 UnitsActive OneTouch Verio test strip 1 each02/24/2023ctive Lancets (OneTouch Delica Plus Mwguue19B) misc 02/24/2023ctive lisinopril 20 MG tablet Take 20 mg by mouth in the morning.Active montelukast (Singulair) 10 MG tablet 10 mg 1 (one) time each day at the same timeActive Multiple Vitamins-Minerals (Multivitamin Women 50+) tablet Active triamcinolone (Nasacort Allergy 24HR) 55 MCG/ACT nasal inhaler 2 hfsauf5312/15/2021ctive cetirizine-pseudoephedrine (ZyrTEC-D) 5-120 MG 12 hr tablet Take 1 tablet by mouth in the morning and 1 tablet before bedtime.Active Acetylcysteine (N-Acetyl Cysteine) 600 MG capsule Take 600 mg by mouth 1 (one) time each dayActive Mounjaro 12.5 MG/0.5ML solution auto-injector Inject 12.5 mg under the skin 1 (one) time per week04/11/2024ctive FLUoxetine (PROzac) 20 MG capsule Indications:PMDD (premenstrual dysphoric disorder)Take 1 capsule (20 mg) by mouth Daily 90 capsule 5005/15/2025ctive norethindrone-ethinyl estradiol (05/22) 1-20 MG-MCG tablet Indications:Menometrorrhagia,PMDD (premenstrual dysphoric disorder),Dysmenorrhea Take 1 tablet by mouth Daily Active pills only 120 tablet 5008/16/2025ctive Active Problems ProblemNoted DateDiagnosed DateAnterior scleritis of left eye02/22/2023 Immunizations ImmunizationAdministration DatesNext DueHep A, ped/adol, 2 dose04/18/2009, 10/18/2008Hep B, adult07/16/2003,04/12/2001,09/14/2000Influenza, injectable, MDCK, preservative free, vvgxebrwkxpd23/02/2019,02/02/2018,02/11/2017Influenza, injectable, quadrivalent, preservative free01/23/2023,01/28/2022,01/21/2021, 01/22/2020,02/06/2019,02/13/2016Influenza, seasonal, injectable, preservative free02/29/2024,03/11/2016,02/22/2015Pneumococcal Conjugate PCV 13001/13/2021 Pneumococcal Polysaccharide ZHQS084405/11/2015Polio, Poyytfbzfoe52/18/2009Tdap 10/18/2008Typhoid, ViCPs10/18/2008 Family History Medical HistoryRelationNameCommentsAsthmaFatherJesse PreciadoCataractsFather Jesse PreciadoHypertensionFatherJesse PreciadoRetinal detachmentFather Jesse MorrisonellStrokeFatherJeffrey BaltzellBreast cancerFather's Sister Bella Streetheimer's diseaseMaternal GrandfatherCarl SwartzAsthma Maternal GrandfatherCarl SwartzCOPDMaternal GrandfatherCarl SwartzCataracts Maternal GrandfatherCarl SwartzDiabetesMaternal GrandfatherCarl Adriano HypertensionMaternal GrandfatherCarl SwartzCancerMaternal GrandmotherShirharmeet BarretoartzCataractsMaternal GrandmotherShirharmeet OhColon cancerMaternal GrandmotherShirharmeet EstevanartzDepressionMaternal GrandmotherShirharmeet BarretoartzGlaucoma Maternal GrandmotherShirharmeet EstevanartzHypertensionMaternal GrandmotherShirharmeet [place] Macular degenerationMaternal GrandmotherShirharmeet OhOsteoarthritisMaternal GrandmotherShirharmeet BarretoartzStrokeMaternal GrandmotherShirharmeet BarretoartzThyroid disease Maternal GrandmotherShirharmeet OhCataractsMotherVicky BaltzellHypertension MotherVicky BaltzellOsteoarthritisMotherVicky BaltzellStrokeMotherVicky Baltzell Thyroid diseaseMotherVicky BaltzellAsthmaPaternal GrandfatherWilliam Baltzell CataractsPaternal GrandfatherWilliam BaltzellDiabetesPaternal GrandfatherWilliam BaltzellHeart failurePaternal GrandfatherWilliam BaltzellHypertensionPaternal GrandfatherWilliam BaltzellCancerPaternal GrandmotherRuth BaltzellCataracts Paternal GrandmotherRuth BaltzellRelationNameStatusCommentsFatherJeffrey BaltzellAliveFather's SisterChristine BaltzellMaternal GrandfatherCarl Adriano AliveMaternal GrandmotherShirharmeet OhMotherVicky BaltzellPaternal Grandfather Chi BaltzellAlivePaternal GrandmotherRuth BaltzellAlive Social History Tobacco UseTypesPacks/DayYears UsedDateSmoking Tobacco: NeverSmokeless Tobacco: Never Tobacco Cessation:Counseling Given: Not Answered Comments:My mother smoked most of my life. I HATED it. Alcohol UseStandard Drinks/WeekCommentsYes0 (1 standard drink = 0.6 oz pure alcohol)Social drinker, but rarely more than 2-3 drinks.AUDIT-CAnswerDate RecordedQ1: How often do you have a drink containing alcohol?Monthly or less 04/30/2023Q2: How many drinks containing alcohol do you have on a typical day when you are drinking?1 or Q3: How often do you have six or more drinks on one occasion?Never04/30/2023HQ-2AnswerDate RecordedPatient Health Questionnaire-2 Udkef424regnantCommentsUnknownSex and Gender InformationValueDate RecordedSex Assigned at BirthNot on fileLegal SexFemale 07/15/2022 7:25 PM EDTGender IdentityNot on fileSexual OrientationNot on file Last Filed Vital Signs Vital SignReadingTime TakenCommentsBlood Crqikbsl005/9001/ 3:51 PM EST Pulse--Temperature--Respiratory Rate--Oxygen Saturation--Inhaled Oxygen Concentration--Mevvny33.4 kg (206 lb)09/29/2024 9:00 AM OLRHjrmsq258.9 cm (5' 1 )09/29/2024 9:00 AM EDTBody Mass Index38.9209/29/2024 9:00 AM EDT Plan of Treatment DateTypeDepartmentCare Team (Latest Contact Info)Nmfstngbspy72/23/2026 8:00 AM ESTOffice Visit [facility] [address] [place] [address] Colt Calles, DO [address] [facility] [address] [place] [address] Health MaintenanceDue DateLast DoneCommentsCT Gjkfwtxtlcgs74/01/1975FIT-DNA 1974FIT1974FOBT1974 2950Svnkovnihcons69/01/1975Pap Smear12/02/1995 Cervical Cancer Dclghsrho47/01/2005HPV/Cajcnz4912/01/20040246Cxnhhjuay15/27/2025 04/28/2024, 04/07/2023, 1236Cqzisauvudh54, 07/05/2023, 4Colorectal Cancer Wongcjjcd19/04/2034neumococcal Vaccine: Pediatrics (0 to 5 Years) and At-Risk Patients (6 to 64 Years)Aged Out01/13/2021, 03/11/2016No longer eligible based on patient's age to complete this topic Influenza HftksegMryryqhza49/21/2025, 02/29/2024, 01/23/2023, Additional history exists Procedures Procedure NamePriorityDate/TimeAssociated DiagnosisCommentsMM TOMOSYNTHESIS SCREENING BI04/28/2024 3:52 PM EST from Last 3 Months or Most Recently Relevant to Health Maintenance Results * MM TOMOSYNTHESIS SCREENING BI (04/28/2024 3:52 PM EST)Anatomical Region LateralityModalityOtherSpecimen (Source)Anatomical Location / Laterality Collection Method / VolumeCollection TimeReceived Time04/28/2024 3:52 PM EST Narrative 04/28/2024 3:53 PM EST [facility] ?[address] ? [place] [address] ? Mammography Report ? Signed ? Patient: ROBERT PRECIADONIFER L ?MR#: [id number] ?? : 1975 ?Acct:[id number] ?? Age/Sex: 48 / F ?ADM Date: //24 ?? Loc: MAMMO ? Attending Dr: COLT CALLES ? Ordering Physician: COLT CALLES ? Results: ? Date of Service: //24 ?Follow Up: ? Procedure(s): MM tomosynthesis screening BI ?? Accession Number(s): [id number] ? cc: LM VOSS ; COLT CALLES ? Patient Name: ? KAREN PRECIADO ? MR#: [id number] ? : 1975 ? Exam Date: 04/28/2024 ?? Ordering Doctor: DR COLT CALLES ? RADIOLOGY REPORT ? PROCEDURE: ? MM TOMOSYNTHESIS SCREENING BI ? COMPARISON: ? MM TOMOSYNTHESIS SCREENING BI, 04/06/2023. ??MG MAMM SCREEN 3D ?? IMTZY CAD, 01/27/2022. ??MG MAMM SCREEN 3D MITZY CAD, 01/21/2021. ??MG MAMM MITZY SCRN W ?? CAD DIG, 01/17/2015. ? INDICATIONS: ? Screening ? Calculator Name ? NCI Breast Cancer Risk Assessment Tool ?? 5 Year Breast Cancer Risk ? 1.10% ?? Lifetime Breast Cancer Risk ? 11.00% ?? Personal Breast Cancer ?No ?? Personal Ovarian Cancer ? No ?? Treatments ? None ?? Family Cancers ? Grandmother-paternal with breast cancer at age ??35. ? LOCATION: ? [facility] ? BREAST COMPOSITION: ? The breasts are heterogeneously dense,which may ?? obscure small masses. ? FINDINGS: ? DIAGNOSTIC CATEGORY 1--NEGATIVE. ? RIGHT BREAST: ??No significant suspicious finding. ??No significant change has ?? occurred. ? LEFT BREAST: ??No significant suspicious finding. ??No significant change has ?? occurred. ? RECOMMENDATIONS: ? ROUTINE MAMMOGRAM AND CLINICAL EVALUATION IN 12 MONTHS. ? PLEASE NOTE: ??A NORMAL MAMMOGRAM DOES NOT EXCLUDE THE POSSIBILITY OF BREAST ?? CANCER. ??A CLINICALLY SUSPICIOUS PALPABLE LUMP SHOULD BE BIOPSIED. ? Dictated by: Rip Suarez M.D. on 04/28/2024 at 15:50 ? Approved by: Rip Suarez M.D. on 04/28/2024 at 15:52 ? Dictated By: ?Rip Suarez M.D. ? Signed By: ?04/28/ 1553 ? DD/ 1552 ? TD/TT: ? Bank Credit Card Collection Clerk: Procedure Note Radiology, Radiologist, MD - 04/28/2024 [place] [address] Mammography Report Signed Patient: KAREN PRECIADO LMR#: [id number] : 1975Acct:[id number] Age/Sex: 48 / FADM Date: 04/28/24 Loc: MAMMO Attending Dr: COLT CALLES Ordering Physician: COLT CALLESResults: Date of Service: 04/28/24Follow Up: Procedure(s): MM tomosynthesis screening BI Accession Number(s): [id number] cc: LM VOSS ; COLT CALLES Patient Name: KAREN PRECIADO MR#: [id number] : 1975 Exam Date: 04/28/2024 Ordering Doctor: DR COLT CALLES RADIOLOGY REPORT PROCEDURE: MM TOMOSYNTHESIS SCREENING BI COMPARISON: MM TOMOSYNTHESIS SCREENING BI, 04/06/2023. MG MAMM FIIBZT5B MITZY CAD, 01/27/2022. MG MAMM SCREEN 3D MITZY CAD, 01/21/2021. MG MAMM BILSCRN W CAD DIG, 01/17/2015. INDICATIONS: Screening Calculator Name NCI Breast Cancer Risk Assessment Tool 5 Year Breast Cancer Risk 1.10% Lifetime Breast Cancer Risk 11.00% Personal Breast Cancer No Personal Ovarian Cancer No Treatments None Family Cancers Grandmother-paternal with breast cancer at age 35. LOCATION: [facility] BREAST COMPOSITION: The breasts are heterogeneously dense,which may obscure small masses. FINDINGS: DIAGNOSTIC CATEGORY 1--NEGATIVE. RIGHT BREAST: No significant suspicious finding. No significant changehas occurred. LEFT BREAST: No significant suspicious finding. No significant changehas occurred. RECOMMENDATIONS: ROUTINE MAMMOGRAM AND CLINICAL EVALUATION IN 12 MONTHS. PLEASE NOTE: A NORMAL MAMMOGRAM DOES NOT EXCLUDE THE POSSIBILITY OFBREAST CANCER. A CLINICALLY SUSPICIOUS PALPABLE LUMP SHOULD BE BIOPSIED. Dictated by: Rip Suarez M.D. on 04/28/2024 at 15:50 Approved by: Rip Suarez M.D. on 04/28/2024 at 15:52 Dictated By: Rip Suarez M.D. Signed By:04/28/241552 DD/ 51 TD/TT: Bank Credit Card Collection Clerk: Authorizing ProviderResult TypeResult StatusRichard A Visci DOCLINISYNC IMAGING Final Result from Last 3 Months or Most Recently Relevant to Health Maintenance Insurance Care Teams Team MemberRelationshipSpecialtyStart DateEnd Lm Voss MD [address] [place], [place] [id number] PCP - GeneralFamily Oheebyhl16/29/23
--- OUTSIDE RECORDS SUMMARY | 2025-05-01 10:24 | XMS_ITS | CCD ---
Author Organization [facility] Care Team Providers Care Feather Sawyer Name Role Phone Christiana Tam Unavailable NAILA, [...] Consulting Unavailable MD Bart Brar Attending Provider [phone] DO Lm Ramírez Primary Care Provider Aparna Campo Unavailable DO Lm Ramírez Primary Care Provider [phone] Alber, NATURAL RESOURCES EXTENSION EDUCATOR Aparna Attending Provider [phone] IVONE HERNÁNDEZ Attending Unavailable LM RAMÍREZ Referring Unavailable DARRELL, LM Mary Primary Care Unavailable Lm Ramírez Primary Care Unavailable Campo, Aparna Attending Unavailable Campo, Aparna Admitting Unavailable VISHAL LEGER Admitting Unavailable VISHAL LEGER Attending Unavailable VISHAL LEGER Referring Unavailable LM RAMÍREZ Primary Care Unavailable HAZEL LAMBERT Attending Unavailable LM RAMÍREZ Primary Care Unavailable VISHAL LEGER Attending Unavailable VISHAL LEGER Referring Unavailable LM RAMÍREZ Primary Care Unavailable Lm Ramírez MD Primary Care Provider [phone] Lm Ramírez DO Primary Care Provider ARUN LUCERO Attending Unavailable ARUN LUCERO Referring Unavailable YARIEL CALLES Attending Unavailable Lm Ramírez MD Primary Care Provider Allergies Allergy ClassificationReported Allergen(s)Allergy TypeDate of OnsetReaction(s) Facility (17 sources)Azithromycin; Translations: [AZITHROMYCIN]Drug Cptcjfg45-48-4966 hives, [facility]chingPro[facility] (14 sources)Erythromycin; Translations: [ERYTHROMYCIN]Drug Fgspwve57-55-0541 Diarrhea, GI intoleranceProMedica Repository (1 source)AzithromycinDrug Rhzmrba58-65-6041Mem[facility] (4 sources)ErythromycinDrug Kkzguzg38-43-9150auwczol upset, nausea, crampsThe [facility] (1 source)AzithromycinDrug Esdhopj99-49-9949TnxyokppnF[facility] Rep[facility] (1 source)ErythromycinDrug Pvdvkzj33-96-4159TqfenkpsyFayette County Memorial Hospital Repository (7 sources)Grass pollenPropensity to adverse -97-0224Wnnbwgs, Runny nose, Shortness of breath, WheezingNOMS Healthcare (7 sources)House dust mitePropensity to adverse wdopkqhxu92-86-3001Pcgwkgq, Shortness of breath, WheezingNOMS Healthcare Medications Current Medications MedicationDrug Class(es)DatesSig (Normalized)Sig (Original)acetylcysteine 600 mg oral capsule (7 sources)Antidote, Mucolytic, Antidote for Acetaminophen Overdosetake 1 capsule by mouth once dailyAcetylcysteine (N-Acetyl Cysteine) 600 MG capsule Take 600 mg by mouth 1 (one) time each day Activetake 1 capsule by mouth once dailyAcetylcysteine (N-Acetyl Cysteine) 600 MG capsule Take 600 mg by mouth 1 (one) time each day Activetake 2 capsules by mouth in the morning, then take 2 capsules by mouth at bedtimeacetylcysteine (NAC) 600 mg capsule Take 2 capsules (1,200 mg total) by mouth in the morning and 2 capsules (1,200 mg total) before bedtime. 0 [id number] 200 actuat albuterol 0.09 mg/actuat metered dose inhaler (7 sources)beta2-Adrenergic AgonistStart: 39-54-8757wxks 2 puff(s) by inhalation every four hours as neededAlbuterol Sulfate (Proventil Hfa) 90 mcg/actuation HFA aerosol inhaler Active 2 PUFF INHALATION Every 4 hours as needed June 25, 2023 1:00am FreeTextSi puffs as needed Inhalation every 4 hrs; Note: Source Status: Not-TakingundefinedPRN; Provider: Alber Braun ( ) take 2 puff(s) by inhalation every four hours as neededProventil HFA 108 (90 Base) MCG/ACT 2 puffs as needed Inhalation every 4 hrs Not-Taking/PRNtake 2 puff(s) by inhalation every six hours as needed for wheezingalbuterol (PROVENTIL HFA;VENTOLIN HFA) 90 mcg/actuation inhaler Inhale 2 puffs every 6 (six) hours a s needed for wheezing. 0 Activeamoxicillin 875 mg / clavulanate 125 mg oral tablet (2 sources)Penicillin-class AntibacterialStart: 21-19-6295cvhf 1 tablet by mouth every twelve hoursAmoxicillin-Pot Clavulanate 875-125 MG 1 tablet Orally every 12 hrs for 10 day(s) May, Activecholecalciferol 0.25 mg oral capsule (6 sources)Vitamin DStart: 69-39-8848ahyx 1 capsule by mouth every other day Cholecalciferol (Vitamin D3) 250 mcg (10,000 unit) capsule Active 250 MCG PO .COMPLEX June 25, 2023 1:00am 250 mcg orally every other day;Start: 06-25-2023 End: 49-55-7566ipei 1 capsule by mouth every other dayCholecalciferol (Vitamin D3) 125 mcg (5,000 unit) capsule Discontinued 125 MCG PO .every other day F ebruary 2023 1:00am July 25, 2024 11:58amCholecalciferol (Vitamin D-3) 5000 UNIT/ML liquid (7 sources)Cholecalciferol (Vitamin D-3) 5000 UNIT/ML liquid 5,000 Units Active cholecalciferol, vitamin D3, (VITAMIN D3 ORAL) (1 source)cholecalciferol, vitamin D3, (VITAMIN D3 ORAL) Take by mouth daily. 0 ActiveEthinyl Estradiol / Ferrous fumarate / Norethindrone (6 sources)EstrogenStart: 08-16-2024 End: 10-82-6357vtqbwffiinbkq-ethinyl estradiol (05/22) 1-20 MG-MCG tablet Indications: Menometrorrhagia , PMDD (premenstrual dysphoric disorder) , Dysmenorrhea Take 1 tablet by mouth Daily Active pills lobo752 tablet 3 08/16/2024 08/16/2025 ActiveStart: 08-16-2024 End: 44-21-2042idqidnurexvla-ethinyl estradiol (05/22) 1-20 MG-MCG tablet Indications: Menometrorrhagia , PMDD (premenstrual dysphoric disorder) ([facility]) , Dysmenorrhea Take 1 tablet by mouth Daily Active pills only 120 tablet 3 08/16/2024 08/16/2025 ActiveStart: 05-15-2024 End: 97-42-6495ktyjzgsqdboue-ethinyl estradiol (05/22) 1-20 MG-MCG tablet Indications: Menometrorrhagia Take 1 tablet by mouth Daily 84 tablet 3 05/15/2024 05/15/2025 Activefluconazole 150 mg oral tablet (2 sources)Azole AntifungalStart: 02-74-6379Nnshbfef 150 MG Take 1 tablet on day 1, if still symptomatic on day 4 take 1 tab, if still symptomatic on day 7 take Orally Once a day for 7 days May, ActiveFLUoxetine 20 mg oral capsule (16 sources)Serotonin Reuptake InhibitorStart: 06-25-2023 End: 26-06-6835tiay 1 capsule by mouth once dailyFLUoxetine (PROzac) 20 MG capsule Indications: PMDD (premenstrual dysphoric disorder) Take 1 capsule (20 mg) by mouth Daily 90 capsule 3 05/15/2024 05/15/2025 Activetake 1 capsule by mouth in the morningFLUoxetine (PROzac) 10 mg capsule Take 1 capsule (10 mg total) by mouth in the morning. 0 ActiveFluoxetine Activelisinopril 20 mg oral tablet (18 sources)Angiotensin Converting Enzyme InhibitorStart: 06-25-2023 End: 02-07-8157zhmv 1 tablet by mouth once dailyLisinopril 20 mg tablet Active 20 MG PO Daily June 25, 2023 7:38pm FreeTextSi tablet Orally Once a day; Note: Source Status: Taking; Provider: Alber Braun ( ) montelukast 10 mg oral tablet (15 sources)Leukotriene Receptor AntagonistStart: 11-29-9749qtpk 1 tablet by mouth once daily in the eveningMontelukast (Singulair) 10 mg tablet Active 1 TAB PO Daily June 25, 2023 1:00am FreeTextSi tablet in the evening Orally Once a day; Note: Source Status: Taking; Provider: Alber Braun (NPI: [id number])MOUNJARO 10 mg/0.5 mL pen injector (1 source)Start: 87-67-0529NQSVQNBK 10 mg/0.5 mL pen injector Inject under the skin once a week. 0 05/11/2023 Activemounjaro 10 mg/0.5ml solution pen-injector (2 sources)Mounjaro 10 MG/0.5ML as directed Subcutaneous ActiveMounjaro 12.5 MG/0.5ML solution auto-injector (6 sources)Start: 98-00-1791vejzde 12.5 mg by subcutaneous injection every week Mounjaro 12.5 MG/0.5ML solution auto-injector Inject 12.5 mg under the skin 1 (one) time per week 04/11/2024 ActiveMultiple Vitamins-Minerals (Multivitamin Women 50+) tablet (7 sources)Multiple Vitamins-Minerals (Multivitamin Women 50+) tablet Active Norethindrone-E.Estradiol-Iron (Dia Gatica 05/22 ()) 1 mg-20 mcg (21)/75 mg (7) tablet (2 sources)Start: 81-52-9380Hxaecyczrhaql-E.Estradiol-Iron (Dia Fe 05/22 (28)) 1 mg-20 mcg (21)/75 mg (7) tablet Active TAB PO Daily July 25, 2024 12:00am sod sulf-pot chloride-mag sulf 1.479-0.188- 0.225 gram tablet (1 source)Start: 95-47-3239vvi sulf-pot chloride-mag sulf 1.479-0.188- 0.225 gram tablet Indications: Encounter for screening colonoscopy Please see instructional sheet given by physicians office. 24 tablet 0 06/03/2023 Active Tirzepatide (3 sources)Start: 29-30-5333Atnpjjbcuks (Mounjaro) 12.5 mg/0.5 mL pen injector Active MG SUBCUT April 17, 2024 1:00amStart: 08-73-9313Oqplemngomr (Mounjaro) 12.5 mg/0.5 mL pen injector Active MG SUBCUT April 17, 2024 12:00amtriamcinolone acetonide 0.055 mg/actuat metered dose nasal spray (15 sources)CorticosteroidStart: 16-79-6323sqvg 1 spray(s) nasal route twice dailyTriamcinolone Acetonide (Nasacort) 55 mcg aerosol,spray Active 2 SPRAY INTRANASAL .twice a day June 25, 2023 7:37pm administer into each nostril Start: 06-25-2023 End: 20-27-7274uaff 1 spray(s) nasal route once dailyTriamcinolone Acetonide (Nasacort) 55 mcg aerosol,spray Discontinued 2 SPRAY INTRANASAL Daily June 25, 2023 1:00am June 25, 2023 7:37pm administer into each nostrilStart: 16-39-8472blocikglkhxlu (Nasacort Allergy 24HR) 55 MCG/ACT nasal inhaler 2 sprays 12/15/2021 ActiveStart: 97-98-7719IMCSERP - 10 mg Apr, 60 mg Vitamin D3 23299 UNIT (3 sources)Vitamin D3 88376 UNIT Orally Active Completed/Discontinued Medications MedicationDrug Class(es)DatesSig (Normalized)Sig (Original)Jennifer-D 12 Hour (3 sources)Jennifer-D 12 Hour Not-Taking/PRNAllegra-D 12 Hour ActiveAugmentin Tablets 875 MG (3 sources)Start: 81-60-1193qnmn 1 tablet by mouth every twelve hoursAugmentin Tablets 875 MG 1 tab(s) orally bid for 10 day(s) Jan, Not-Taking/PRN Start: 68-55-7118thgo 1 tablet by mouth every twelve hoursAugmentin Tablets 875 MG 1 tab(s) orally bid for 10 day(s) Jan, ActiveCetirizine / Pseudoephedrine (17 sources)alpha-Adrenergic Agonist, Histamine-1 Receptor AntagonistStart: 06-25-2023 End: 92-81-6682gtvg 1 tablet by mouth twice dailyCetirizine-Pseudoephedrine 5- 120 mg tablet extended release 12 hr Discontinued 1 TAB PO Twice dailyFebr2023 1:00am July 25, 2024 11:58am FreeTextSi tablet Orally Twice a day; Note:Source Status: Not-TakingundefinedPRN; Provider: Alber Braun ( )Start: 77-50-0685fnuq 1 tablet by mouth twice dailyCetirizine- Pseudoephedrine 5-120 mg tablet extended release 12 hr Active 1 TAB PO Twice daily June 25, 2023 12:00am FreeTextSi tablet Orally Twice a day; Note: Source Status: Not-TakingundefinedPRN; Provider: Alber Braun ( )take 1 tablet by mouth once in the morning, then take 1 tablet by mouth every twelve hours at bedtimecetirizine-pseudoephedrine (ZyrTEC-D) 5-120 MG 12 hr tablet Take 1 tablet by mouth in the morning and 1 tablet before bedtime. Activetake 1 tablet by mouth every twenty-four hoursZyrTEC-D Allergy & Congestion 5-120 MG 1 tablet as needed Orally Once a day Activetake 1 tablet by mouth every twelve hoursZyrTEC-D Allergy & Congestion 5-120 MG 1 tablet Orally Twice a day Not-Taking/PRNtake 1 tablet by mouth every twelve hours in the morningcetirizine-pseudoephedrine (ZyrTEC-D) 5-120 mg per 12 hr tablet Take 1 tablet by mouth in the morning and 1 tablet before bedtime. 0 Activedoxycycline hyclate 100 mg oral capsule (3 sources)Tetracycline-class DrugStart: 04-17-2024 End: 58-57-2595qxrk 1 capsule by mouth twice dailyDoxycycline Hyclate 100 mg capsule Discontinued 100 MG PO Twice daily 13 11April 17, 2024 1:00am June 29, 2024 4:28pmfluticasone (3 sources)CorticosteroidStart: 92-19-4609ewcn 2 spray(s) nasal route once daily FLONASE 50 mcg 2 sprays nasally qd 2 sprays to each nostril daily until your symptoms improve Jan, Not-Taking/PRNStart: 86-49-9101sxbu 2 spray(s) nasal route once dailyFLONASE 50 mcg 2 sprays nasally qd 2 sprays to each nostril daily until your symptoms improve Jan, Activeibuprofen 800 mg oral tablet (2 sources)Nonsteroidal Anti-inflammatory DrugStart: 06-09-2021 End: 90-60-7943bdhj 1 tablet by mouth three times dailyibuprofen (ADVIL,MOTRIN) 800 mg tablet Take 1 tablet (800 mg total) by mouth 3 (three) times a day.21 tablet 0 06/09/2021 06/03/2023 Discontinued (Therapy completed) methylPREDNISolone 4 mg oral tablet (3 sources)CorticosteroidStart: 56-68-4303lcshgjHSLSKUBxyebm 4 MG as directed Orally Once a day for 6 days Jan, Not-Taking/PRNMultivitamin With Minerals (One Daily Complete) tablet (3 sources)Start: 06-25-2023 End: 65-71-8167guqx 1 tablet by mouth once daily, then take 1 tablet by mouth once dailyMultivitamin With Minerals (One Daily Complete) tablet Discontinued 1 TAB PO Daily June 25, 2023 1:00am July 25, 2024 12:04pmStart: 51-01-4117afvv 1 tablet by mouth once daily, then take 1 tablet by mouth once dailyMultivitamin With Minerals (One Daily Complete) tablet Active 1 TAB PO Daily June 25, 2023 12:00amMultivitamins (3 sources)Multivitamins Orally Not-Taking/PRNMultivitamins Orally Active predniSONE 20 mg oral tablet (11 sources)Start: 04-17-2024 End: 79-86-7618vsyr 2 tablets by mouth once dailyPrednisone 20 mg tablet Discontinued 40 MG PO Daily 6 April 17, 2024 1:00am June 29, 2024 4:28pmStart: 06-25-2023 End: 20-47-2678engg 1 tablet by mouth twice dailyPrednisone 20 mg tablet Discontinued 20 MG PO Twice daily 10 July 25, 2024 12:00am August 6:24pmStart: 90-93-4035sscl 1 tablet by mouth every twelve hourspredniSONE 20 MG 1 tablet Orally bid for 5 day(s) Jan, Not-Taking/PRNTirzepatide (3 sources)Start: 06-25-2023 End: 70-49-7455Wwdgwausrqw 10 mg/0.5 mL pen injector Discontinued MG SUBCUT As Directed June 25, 2023 1:00amFebr2024 4:28pm FreeTextSig: as directed Subcutaneous; Note: Source Status: Taking; Provider: Alber Braun ( )Start: 06-25-2023 End: 98-39-7600Sqmjlyawcve 10 mg/0.5 mL pen injector Discontinued MG SUBCUT As Directed June 25, 2023 12:00am June 29, 2024 3:28pm FreeTextSig: as directed Subcutaneous; Note: Source Status: Taking; Provider: Alber Braun ( ) Problems Active Problems Problem ClassificationProblemDateDocumented DateEpisodic/ChronicAnxiety disorders (3 sources)Mixed anxiety and depressive disorder; Translations: [Anxiety disorder, unspecified]36-83-6944EbdyvhwVshrng (13 sources)Acute exacerbation of asthma; Translations: [Unspecified asthma with (acute) exacerbation]Onset: 142534-53-7284TbxmzxiWroqbtm obstructive pulmonary disease and bronchiectasis (4 sources)Bronchitis; Translations: [Bronchitis, not specified as acute or chronic]51-49-3746RjprzjidUbloxxlya hypertension (13 sources)Hypertensive disorder; Translations: [Essential (primary) hypertension]Onset: 80-70-5554JkawemjZowtleyitdjft and screening for infectious disease (2 sources)Contact with and (suspected) exposure to other viral communicable diseases; Translations: [Encounter for screening for human papillomavirus (HPV)] Onset: 02-13-2021 Resolved: 33-73-2079JwypiyosJbaqssufxtya; infection of eye (except that caused by tuberculosis or sexually transmitteddisease) (7 sources)Anterior scleritis of left eye; Translations: [Anterior scleritis, left eye]Onset: 122860-20-9909WkdkvoxVuwgvitpq disorders (9 sources)Excessive and frequent menstruation with regular cycle; Translations: [Dysmenorrhea, unspecified]Onset: 90-07-7982DdmgvpnFchs disorders (3 sources)Premenstrual dysphoric disorder; Translations: [Premenstrual dysphoric disorder]Onset: 801707-53-6346XyjznaeZejll connective tissue disease (2 sources)Ganglion cyst of right foot; Translations: [Ganglion, right ankle and foot]50-70-1566LdvfdxffKahzt connective tissue disease (2 sources)Pain in right foot; Translations: [Pain in right foot]09-29-2024 EpisodicOther nervous system disorders (2 sources)Difficulty walking; Translations: [Difficulty in walking, not elsewhere classified]34-25-8569NpfvlcdKqmed nutritional; endocrine; and metabolic disorders (5 sources)Body mass index 40+ - severely obese; Translations: [Body mass index (BMI) 45.0-49.9, adult]ChronicOther nutritional; endocrine; and metabolic disorders (1 source)Morbid (severe) obesity due to excess calories; Translations: [MORBID SEVERE OBES D/T EXCESS EDIL]Onset: 33-98-7879YjhppcbUsfuw nutritional; endocrine; and metabolic disorders (1 source)Body mass index (BMI) 45.0-49.9, adult; Translations: [BODY MASS INDEX BMI 45.0-49.9 ADULT]Onset: 22-60-3243WwcoiqzZiaqa nutritional; endocrine; and metabolic disorders (1 source)Obese class II; Translations: [Body mass index (BMI) 39.0-39.9, adult] ChronicOther nutritional; endocrine; and metabolic disorders (4 sources)Body mass index (BMI) 39.0-39.9, adult; Translations: [Body Mass Index 39.0-39.9, adult]ChronicOther nutritional; endocrine; and metabolic disorders (3 sources)Body mass index 30+ - obesity; Translations: [Body mass index (BMI) 39.0-39.9, adult]68-41-8346GqjbhetHdgyq screening for suspected conditions (not mental disorders or infectious disease) (14 sources)Encounter for screening for malignant neoplasm of cervix; Translations: [Encounter for screening mammogram for malignant neoplasm of breast]Onset: 80-01-0795KmjwtdisPtlpl skin disorders (2 sources)Night sweats; Translations: [Generalized hyperhidrosis]05-15-2024 EpisodicOther upper respiratory disease (3 sources)Seasonal allergy; Translations: [Other seasonal allergic rhinitis] 47-71-3230NgoockbScldg upper respiratory infections (2 sources)Acute sinusitis, unspecified; Translations: [Acute pansinusitis, unspecified]Onset: 02-13-2021 Resolved: 13-34-8875AemzwupxLuqkpq media and related conditions (1 source)Other acute nonsuppurative otitis media, bilateral; Translations: [Acute nonsuppurative otitis media, unspecified]76-53-3550BjerwlryPoymmbtn codes; unclassified (6 sources)Obstructive sleep apnea syndrome; Translations: [Obstructive sleep apnea (adult) (pediatric)]48-99-3739RzsficdOiovtuvy codes; unclassified (1 source)Sleep apnea, unspecified; Translations: [SLEEP APNEA UNSPECIFIED] Onset: 59-40-8932XjrtoapOpdufkck codes; unclassified (1 source)Obstructive sleep apnea (adult)(pediatric); Translations: [Obstructive sleep apnea (adult) (pediatric)]Onset: 16-14-7301RhbctqmYsgsdbyh codes; unclassified (4 sources)Obstructive sleep apnea (adult) (pediatric); Translations: [Obstructive sleep apnea (adult)(pediatric)]ChronicResidual codes; unclassified (1 source)Family history of malignant neoplasm of breast; Translations: [FAMILY HX MALIG NEOPLASM OF BREAST]Onset: 75-68-0624VztojwlfBmrxvyxmpblj (1 source)CONTACT W/AND (SUSP) EXPOS COVID-19; Translations: [CONTACT W/AND (SUSP) EXPOS COVID-19]Onset: 81-32-5040Jmdbbuwngfpx (1 source)Colon Cancer ScreeningOnset: 87-79-5080Mywekbzdcevv (1 source)screeningOnset: 07-05-2023 Past or Other Problems Problem ClassificationProblemDateDocumented DateEpisodic/ChronicBenign neoplasm of uterus (1 source)Leiomyoma of uterus, unspecified; Translations: [LEIOMYOMA OF UTERUS UNSPECIFIED]Onset: 13-88-4218RmehtzrmRywyvt of cervix (1 source)Atypical squamous cells of undetermined significance on cytologic smear of cervix (ASC-US); Translations: [ASC US ON CYTOLOGIC SMEAR OF CERVIX] Onset: 79-55-4300AlrlzjxfDxtdunmj codes; unclassified (1 source)Acquired absence of other specified parts of digestive tract; Translations: [ACQ ABSENCE OTH PART DIGESTV TRACT]Onset: 06-79-6268Aqfrzrwl Results Test NameValueInterpretationReference RangeFacilityCYTOLOGY NON-GYNECOLOGICon 99-52-4623XSX-GYNECOLOGIC CYTOLOGYSEE RESULTS BELOWSaint John's HospitalComment on above:SPECIMEN SOURCE Cyst Foot, Right LAB AP CASE REPORT: Medical Cytology Report Case: [id number] Authorizing Provider: Arun Lucero DPM Collected: 09/29/2024 1100 Ordering Location: [facility] Received: 10/02/[address] [place] [address] Lab Pathologist: Chucho De Santiago MD Specimen: Foot, Right, Ganglion cyst aspirate LAB AP FINAL DIAGNOSIS: Cyst of right foot, aspiration: Basophilic mucinous material most consistent with ganglion cyst content. No malignant cells identified. at 1714 EDT LAB AP GROSS DESCRIPTION: Received was less than 0.5ml of light pinkish fluid unfixed, labeled as Nick Foot . CytoLyt added in lab. Specimen placed in formalin at 18:00 and had a total fixation time of 7 hours. PERFORMED AT [facility] [address],[place] [address] [facility] HealthcareXR Foot - right 3 Viewson 86-47-6573Yorhmpb Result: 3 views right foot: Weight-bearing: DP, oblique, lateral: 09/29/2024: Unremarkable for acute osseous or joint pathology. Unremarkable for fracture or stress fracture changes. Unremarkable for os peroneum. Unremarkable for osteophyte formation arthritic changes. Well-formed enthesophyte at the insertion of the plantar fascia. Calcific deposition at the insertion of the Achilles tendon.[facility]/NHRMCRadiology Study observation (narrative)[facility] TOMOSYNTHESIS SCREENING BIon 26-49[place] [address] Mammography Report Signed Patient: KAREN ROMERO MR#: [id number] : 1975 Acct:[id number] Age/Sex: 48 / F ADM Date: 04/28/24 Loc: MAMMO Attending Dr: YARIEL CALLES Ordering Physician: YARIEL CALLES Results: Date of Service: 04/28/24 Follow Up: Procedure(s): MM tomosynthesis screening BI Accession Number(s): [id number] cc: LM RAMÍREZ ; YARIEL CALLES Patient Name: KAREN ROMERO MR#: [id number] : 1975 Exam Date: 04/28/2024 Ordering Doctor: DR YARIEL CALLES RADIOLOGY REPORT PROCEDURE: MM TOMOSYNTHESIS SCREENING BI COMPARISON: MM TOMOSYNTHESIS SCREENING BI, 04/06/2023. MG MAMM SCREEN 3D MITZY CAD, 01/27/2022. MG MAMM SCREEN 3D MITZY CAD, 01/21/2021. MG MAMM MITZY SCRN W CAD DIG, 01/17/2015. INDICATIONS: Screening Calculator Name NCI Breast Cancer Risk Assessment Tool 5 Year Breast Cancer Risk 1.10% Lifetime Breast Cancer Risk 11.00% Personal Breast Cancer No Personal Ovarian Cancer No Treatments None Family Cancers Grandmother-paternal with breast cancer at age 35. LOCATION: [facility] BREAST COMPOSITION: The breasts are heterogeneously dense,which may obscure small masses. FINDINGS: DIAGNOSTIC CATEGORY 1--NEGATIVE. RIGHT BREAST: No significant suspicious finding. No significant change has occurred. LEFT BREAST: No significant suspicious finding. No significant change has occurred. RECOMMENDATIONS: ROUTINE MAMMOGRAM AND CLINICAL EVALUATION IN 12 MONTHS. PLEASE NOTE: A NORMAL MAMMOGRAM DOES NOT EXCLUDE THE POSSIBILITY OF BREAST CANCER. A CLINICALLY SUSPICIOUS PALPABLE LUMP SHOULD BE BIOPSIED. Dictated by: Arun Suarez M.D. on 04/28/2024 at 15:50 Approved by: Arun Suarez M.D. on 04/28/2024 at 15:52 Dictated By: Arun Suarez M.D. Signed By: 04/28/24 1553 DD/ 155 TD/TT: Database Consultant:TBHRadiology, Radiologist, MD - 04/28/2024 [place] [address] Mammography Report Signed Patient: KAREN ROMERO MR#: [id number] : 1975 Acct:[id number] Age/Sex: 48 / F ADM Date: 04/28/24 Loc: MAMMO Attending Dr: YARIEL CALLES Ordering Physician: AYRIEL CALLES Results: Date of Service: 04/28/24 Follow Up: Procedure(s): MM tomosynthesis screening BI Accession Number(s): [id number] cc: LM RAMÍREZ ; YARIEL CALLES Patient Name: KAREN ROMERO MR#: [id number] : 1975 Exam Date: 04/28/2024 Ordering Doctor: DR YARIEL CALLES RADIOLOGY REPORT PROCEDURE: MM TOMOSYNTHESIS SCREENING BI COMPARISON: MM TOMOSYNTHESIS SCREENING BI, 04/06/2023. MG MAMM SCREEN 3D MITZY CAD, 01/27/2022. MG MAMM SCREEN 3D MITZY CAD, 01/21/2021. MG MAMM MITZY SCRN W CAD DIG, 01/17/2015. INDICATIONS: Screening Calculator Name NCI Breast Cancer Risk Assessment Tool 5 Year Breast Cancer Risk 1.10% Lifetime Breast Cancer Risk 11.00% Personal Breast Cancer No Personal Ovarian Cancer No Treatments None Family Cancers Grandmother-paternal with breast cancer at age 35. LOCATION: [facility] BREAST COMPOSITION: The breasts are heterogeneously dense,which may obscure small masses. FINDINGS: DIAGNOSTIC CATEGORY 1--NEGATIVE. RIGHT BREAST: No significant suspicious finding. No significant change has occurred. LEFT BREAST: No significant suspicious finding. No significant change has occurred. RECOMMENDATIONS: ROUTINE MAMMOGRAM AND CLINICAL EVALUATION IN 12 MONTHS. PLEASE NOTE: A NORMAL MAMMOGRAM DOES NOT EXCLUDE THE POSSIBILITY OF BREAST CANCER. A CLINICALLY SUSPICIOUS PALPABLE LUMP SHOULD BE BIOPSIED. Dictated by: Arun Suarez M.D. on 04/28/2024 at 15:50 Approved by: Arun Suarez M.D. on 04/28/2024 at 15:52 Dictated By: Arun Suarez M.D. Signed By: 04/28/241552 DD/ 51 TD/TT: Database Consultant: [facility] HospitalRadiology Study observation (narrative)[facility] TOMOSYNTHESIS SCREENING BIOrdered By: Radiologist Radiology on 25-05-6780BAOS [employer] Work Phone: HCG ( test) Ql (U)on 33-80-6833Ypek HCG ( test) Ql (U)NegativeNormalNEGProMedica Patton State HospitalComment on above:Performed By: #### [id number] #### [facility] ([id number]) [address] [place] [address] [id number] ACOG PANEL 2: 30 to 65on 03-11-2022..NormalThe [facility]erry HospitalComment on above:Result Comment: Performed at: WBPerformed By: #### [id number] #### [facility] [address] [place] [address] Dr. Aditi Arriaga Gdln ACOG Niawnnj10-46UjmumrSirThe University of Toledo Medical CenterComment on above:Performed By: #### [id number] #### [facility] [address] [place] [address] Dr. Aditi YingDIAGNOSIS:CommentNormUC Medical CenterComment on above: Result Comment: NEGATIVE FOR INTRAEPITHELIAL LESION OR MALIGNANCY. Performed at: WBPerformed By: #### [id number] #### [facility] [address] [place] [address] Dr. Aditi YingHPV AptimaNegativeNormalNegativeAshtabula County Medical CenterComment on above:Result Comment: This nucleic acid amplification test detects fourteen high-risk HPV types (16,18,31,33,35,39,45,51,52,56,58,59,66,68) without differentiation. Performed at: =GPerformed By: #### [id number] #### [facility] [address] [place] [address] Dr. Aditi YingHPV Genotype ReflexCommentUniversity Hospitals Cleveland Medical Center on above:Result Comment: Criteria not met, HPV Genotype not performed. Performed at: WBPerformed By: #### [id number] #### [facility] [address] [place] [address] Dr. Aditi YingMethodology:CommentNoMercy Health St. [facility] on above: Result Comment: This liquid based ThinPrep(R) pap test was screened with the use of an image guided system. Performed at: WBPerformed By: #### [id number] #### [place] [address] Dr[address] Aditi YingNote:CommentUniversity Hospitals Cleveland Medical Center on above:Result Comment: The Pap smear is a screening test designed to aid in the detection of premalignant and malignant conditions of the uterine cervix. It is not a diagnostic procedure and should not be used as the sole means of detecting cervical cancer. Both false-positive and false-negative reports do occur. . Performed at: WBPerformed By: #### [id number] #### [place] [address] Dr[address] Aditi YingPerformed by:CommentUniversity Hospitals Cleveland Medical Center on above: Result Comment: Rachel Valentino, Delivery Room Supervisor Performed at: WBPerformed By: #### [id number] #### [facility] [address] [place] [address] Dr. Aditi YingSpecimen adequacy:CommentUniversity Hospitals Cleveland Medical Center on above:Result Comment: Satisfactory for evaluation. Endocervical and/or squamous metaplastic cells (endocervical component) are present. Performed at: WBPerformed By: #### [id number] #### [facility] [address] [place] [address] Dr. Aditi YingMG MAMM SCREEN 3D MITZY CADon 48-62-1891DU MAMM SCREEN 3D MITZY CAD Patient: KAREN ROMERO Exam Date: 01/27/2022 : 1975 Gender:F Ordering : DR CORETTA YOO . Admission #: [id number] Family : Order #: [id number] CLICK HERE TO VIEW EXAM RADIOLOGY REPORT [...] breast cancer at age 34. LOCATION: [facility] BREAST COMPOSITION: Heterogeneously dense,which may obscure small [...] by: Bart Curtis MD on 01/28/2022 at 07:42NormalThThe Surgical Hospital at [facility]woods CBC AUTO DIFFon 69-59-8015UDVR #0.1 103/ulNormal0.0-0.1Ashtabula County Medical CenterComment on above:Performed By: #### HFPFCBC #### [facility] [address] [place] [address] Dr. Aditi Smithsophils/100 WBC (Bld)0.6 %Normal0.2-2.0[facility] Comment on above:Performed By: #### HFPFCBC #### [facility] [address] [place] [address] Dr. Aditi Viera #0.2 103/ulNormal0.0-0.7The [facility]erry HospitalComment on above: Performed By: #### HFPFCBC #### [facility] [address] [place] [address] Dr. Aditi Cardenasosinophils/100 WBC (Bld)2.2 %Normal0.9-7.0[facility] Comment on above:Performed By: #### HFPFCBC #### [facility] [address] [place] [address] Dr. Aditi Cardenasrythrocyte distribution width (RBC) [Ratio]12.9 %Aiznbh66.0-15.0 The [facility]erry HospitalComment on above:Performed By: #### HFPFCBC #### [facility] [address] [place] [address] Dr. Aditi YingHematocrit (Bld) [Volume fraction]40.8 %Lpqhjc95.0-48.0The [facility] Ferry HospitalComment on above:Performed By: #### ELIZABETHBC #### [facility] [address] [place] [address] Dr. Aditi YingHemoglobin (Bld) [Mass/Vol]13.2 g/hJMxesll05.0-16.0The [facility] Ferry HospitalComment on above:Performed By: #### ELIZABETHBC #### [facility] [address] [place] [address] Dr. Aditi Burkett #0.02 10e3/ulNormal0.00-0.03The [facility] Ferry HospitalComment on above:Performed By: #### YONIFCBC #### [facility] [address] [place] [address] Dr. Aditi Burkett %0.2 %Normal0.0-0.5The [facility]erry HospitalComment on above: Performed By: #### HFPFCBC #### [facility] [address] [place] [address] Dr. Aditi HartmannH #1.6 103/ulNormal1.2-3.8The [facility] Ferry HospitalComment on above:Performed By: #### HFPFCBC #### [facility] [address] [place] [address] Dr. Aditi Bedollamphocytes/100 WBC (Bld)19.4 %Critically low20.5-60.0The [facility] Ferry HospitalComment on above:Performed By: #### HFPFCBC #### [facility] [address] [place] [address] Dr. Aditi Gonzalez (RBC) [Entitic mass]31.0 grPjlvov99.7-34.0The [facility]erry HospitalComment on above:Performed By: #### HFPFCBC #### [facility] [address] [place] [address] Dr. Aditi Gonzalez (RBC) [Mass/Vol]32.4 g/hTCtxmut28.9-35.2The [facility] HospitalComment on above:Performed By: #### HFPFCBC #### [facility] [address] [place] [address] Dr. Aditi Mg (RBC) [Entitic vol]95.8 uPAkblfu86.0-99.0The [facility] HospitalComment on above:Performed By: #### HFPFCBC #### [facility] [address] [place] [address] Dr. Aditi Stout #0.6 103/ulNormal0.3-0.8The [facility]erry HospitalComment on above:Performed By: #### HFPFCBC #### [facility] [address] [place] [address] Dr. Aditi Wooocytes/100 WBC (Bld)6.8 %Normal1.7-12.0[facility] Comment on above:Performed By: #### HFPFCBC #### [facility] [address] [place] [address] Dr. Aditi Yañez #6.0 103/ulNormal1.4-6.5The [facility] HospitalComment on above:Performed By: #### HFPFCBC #### [facility] [address] [place] [address] Dr. Aditi Streeterutrophils/100 WBC (Bld)70.8 %Nvdfhb89.0-75.0The [facility] Ferry HospitalComment on above:Performed By: #### HFPFCBC #### [facility] [address] [place] [address] Dr. Aditi Olveralet mean volume (Bld) [Entitic vol]11.5 fLNormal9.5-13.5The [facility] on above:Performed By: #### HFPFCBC #### [facility] [address] [place] [address] Dr. Aditi YingPLT287 103/rpWmzujy546-107Haj [facility] HospitalComuniversity of [facility] on above: Performed By: #### HFPFCBC #### [facility] [address] [place] [address] Dr. Aditi YingRBC4.26 106/ulNormal4.20-5.40The [facility] on above:Performed By: #### HFPFCBC #### [facility] [address] [place] [address] Dr. Aditi YingWBC8.5 103/ulNormal4.0-11.0The [facility] HospitalComuniversity of [facility] health on above: Performed By: #### HFPFCBC #### [facility] [address] [place] [address] Dr. Aditi WomackFAIR PROFILEon 38-12-8636Ijfxsig [Mass/Vol]3.9 g/dLNormal 3.4-5.0The [facility] on above:Performed By: #### HFPF #### [facility] [address] [place] [address] Dr. Aditi YingAlbumin/Globulin [Mass ratio]1.1 {ratio}NormalThe [facility] HospitalComuniversity of [facility] health on above:Performed By: #### HFPF #### [facility] [address] [place] [address] Dr. Aditi Mccoy [Catalytic activity/Vol]59 U/BGnqyzp89-502Rsd [facility] on above:Performed By: #### HFPF #### [facility] [address] [place] [address] Dr. Aditi Nam [Catalytic activity/Vol]26 U/WBgikjt46-38Lor [facility] on above:Performed By: #### HFPF #### [facility] [address] [place] [address] [address] Aditi YingAST [Catalytic activity/Vol]12 U/LCritically mty00-40KawAshtabula County Medical CenterComment on above:Performed By: #### HFPF #### [facility] [address] [place] [address] [address] Aditi YingBilirubin [Mass/Vol]0.3 mg/dLNormal0.2-1.0[facility] Comment on above:Performed By: #### HFPF #### [facility] [address] [place] [address] Dr. Aditi YingCalcium [Mass/Vol]9.1 mg/dLNormal8.5-10.1[facility] Comment on above:Performed By: #### HFPF #### [facility] [address] [place] [address] Dr. Aditi YingChloride [Moles/Vol]103 mmol/QFkxdhd01-405Mtq [facility] Comment on above:Performed By: #### HFPF #### [facility] [address] [place] [address] Dr. Aditi YingCHOL-HDL RATIO [facility] County Health CenterComment on above:Result Comment: 3.3 - 4.4 LOW RISK 4.4 - 7.1 AVERAGE RISK 7.1 - 11.0 MODERATE RISK >11.0 HIGH RISKPerformed By: #### HFPF #### [facility] [address] [place] [address] Dr. Aditi YingCholesterol [Mass/Vol]185 mg/dLNormal<=200The [facility] Comment on above:Performed By: #### HFPF #### [facility] [address] [place] [address] Dr. Aditi YingCholesterol in HDL [Mass/Vol]48 mg/cKNkceix10-52TzfAshtabula County Medical CenterComment on above:Performed By: #### HFPF #### [facility] [address] [place] [address] Dr. Yilan ChangCholesterol in LDL [Mass/Vol]109.8 mg/dLMorrow County HospitalComment on above:Performed By: #### HFPF #### [facility] [address] [place] [address] Dr. Aditi YingCholesterol.total/Cholesterol in HDL [Mass ratio]3.9 {ratio} NormalThe [facility]erry HospitalComment on above:Performed By: #### HFPF #### [facility] [address] [place] [address] Dr. Aditi YingCO2 [Moles/Vol]25.3 mmol/KKiervt54.0-32.0The [facility] Comment on above:Performed By: #### HFPF #### [facility] [address] [place] [address] Dr. Aditi YingCreatinine [Mass/Vol]0.74 mg/dLNormal0.55-1.02The [facility] HospitalComment on above:Performed By: #### HFPF #### [facility] [address] [place] [address] Dr. Aditi YingGlobulin (S) [Mass/Vol]3.4 g/dLNoThe University of Toledo Medical CenterComment on above:Performed By: #### HFPF #### [facility] [address] [place] [address] Dr. Aditi YingGlucose [Mass/Vol]137 mg/dLCritically dlsy08-958Bzq [facility] HospitalComment on above:Performed By: #### HFPF #### [facility] [address] [place] [address] Dr. Aditi YingHDL NORMAL> or = 60 mg/dl - LOW CARDIOVASCULAR RISK <40 mg/dl - HIGH CARDIOVASCULAR RISKMorrow County HospitalComment on above:Performed By: #### HFPF #### [facility] [address] [place] [address] Dr. Aditi YingLDL CALC NORMALSEE BELOWMorrow County HospitalComment on above:Result Comment: <100 mg/dl OPTIMAL 100 - 129 mg/dl NEAR OR ABOVE OPTIMAL 130 - 159 mg/dl BORDERLINE HIGH 160 - 189 mg/dl HIGH >190 mg/dl VERY HIGH Performed By: #### HFPF #### [facility] [address] [place] [address] [address] Aditi YingPotassium [Moles/Vol]4.2 mmol/LNormal3.5-5.1The [facility] Comment on above:Performed By: #### HFPF #### [facility] [address] [place] [address] [address] Aditi YingProtein [Mass/Vol]7.3 g/dLNormal6.4-8.2The [facility] Comment on above:Performed By: #### HFPF #### [facility] [address] [place] [address] [address] Aditi YingSodium [Moles/Vol]139 mmol/ESkachh029-870Ntq [facility] Comment on above:Performed By: #### HFPF #### [facility] [address] [place] [address] [address] Aditi YingTriglyceride [Mass/Vol]136 mg/dLNormal<=150The [facility] Comment on above:Performed By: #### HFPF #### [facility] [address] [address] [address] Aditi YingTSH1.349 uIU/mLNormal0.358-3.740The [facility] HospitalComment on above:Performed By: #### HFPF #### [facility] [address] [place] [address] [address] Aditi YingUrea nitrogen [Mass/Vol]16.0 mg/dLNormal7.0-18.0The [facility] HospitalComment on above:Performed By: #### HFPF #### [facility] [address] [address] [address] Aditi YingUrea nitrogen/Creatinine [Mass ratio]21.6 mg/mgNoThe University of Toledo Medical CenterComment on above:Performed By: #### HFPF #### [facility] [address] [place] [address] [address] Aditi YingVLDL CALC27.2 mg/dLNoThe University of Toledo Medical CenterComment on above: Performed By: #### HFPF #### [facility] [address] [place] [address] [address] Aditi YingPREGNMERCEDES URon 16-68-8059HCOOXARNQ, QUALNegativeNormalNEGATIVEAshtabula County Medical CenterComment on above:Performed By: #### PREGU #### [facility] [address] [place], [place] [address] Dr. Aditi YingCovid-19 PCR (CVDTB)on 30-76-1431CKVG-CoV-2 (COVID-19) RNA ABAD+probe Ql (Unsp spec)Not detectedNormalNOT DETECTEDThe [facility] Comment on above:Result Comment: This test is not yet approved or cleared by the [place] FDA. When there are no FDA-approved or cleared tests available, and other criteria are met, FDA can make tests available under an emergency access mechanism called an Emergency Use Authorization (EUA). The EUA for this test is supported by the [place] of Health and Human Service's (HHS's) declaration that circumstances exist to justify the emergency use of in vitro diagnostics for the detection and/or diagnosis of the virus that causes COVID- 19. This EUA will remain in effect (meaning [...] of clinical signs and symptoms consistent with SARS-CoV-2.Performed By: #### CVDTBH #### [facility] [address] [address] [address] Aditi YingCostaci Summaryon 25-23-7356Lbzbws SummaryCODING DATE: 06/04/2020 [facility] STATUS: Home PAYOR: Commercial Insurance APC DESCRIPTION [...] By: Karen Arzola Date Saved: 06/04/2020 09:33 [facility]hillProvider Orderson 01-91-0365Zwcsmhxy [id number]#1.00OTGTIFF [facility] HospitalXR Chest 2 Viewson 43-79-4824SD Chest 2 ViewsEXAM: XR Chest 2 Views HISTORY: Right-sided wheezing. COMPARISON: None. TECHNIQUE: Two-view chest. FINDINGS: There is mild elevation of the right hemidiaphragm. There is no focal consolidation, pleural effusion, or pneumothorax. The cardiomediastinal silhouette is within normal limits. IMPRESSION: 1. No acute cardiopulmonary disease. Final Dictated by: Vishal Higgins Dictated DT/TM: 05/31/20 11:01 Signed (Electronic Signature): Vishal Higgins 05/31/20 11:02 a Technologist: CARMENZAKettering HealthCoding Summaryon 01-12-6256Hafapr SummaryCODING DATE: 11/08/2019 [facility] STATUS: Home PAYOR: Commercial Insurance APC DESCRIPTION [...] By: Lori Padilla Date Saved: 11/08/2019 01:25 [facility] HospitalCoding SummaryCODING DATE: 11/08/2019 [facility] STATUS: Home PAYOR: Commercial Insurance APC DESCRIPTION [...] PROC APC STAT DESCRIPTION DOCTOR NAME DATE [id number] J1 Arthroscopy, knee, Savage Roberson And 10/30/2019 [...] By: Karen Arzola Date Saved: 11/08/2019 10:14 [facility]hillHistory and Physicalon 64-72-5743Prtwbhk and Physical [id number]#1.00[facility] Provider Orderson 15-76-9198Hxmzacij Orders [id number]#1.00[facility] Consent Formson 85-20-6958Sdzhfkx Forms [id number]#1.00[facility] Discharge Instructionson 81-54-7466Nzezizswb Instructions [id number]#1.00[facility] Medication Managementon 60-35-3506Xoagshacex Management [id number]#[address] [place] [address] Telemetry Stripson 18-19-0797Agefjkszi Strips [id number]#1.00[facility] Anesthesia Noteon 16-97-1868Cccljqmksa NotePatient: KAREN ROMERO Age: 43 years Sex: FEMALE : 1975 [...] capsule 10,000 International_Unit = 1 cap(s), PO, Everyother day Vitamin D3 5000 intl units oral capsule 5,000 International_Unit = 1 cap(s), PO, Every other day Problem list (past medical history): All Problems Asthma / SNOMED CT 057018022 / Confirmed Hypertension / SNOMED CT 9054723884 / Confirmed PMDD (premenstrual dysphoric disorder) / SNOMED CT 5920568 / Confirmed Sleep apnea / SNOMED CT 877923708 / Confirmed Histories Family History: No family history items have been selected or recorded. Procedure history: LASIK (0583998308). Cholecystectomy (18591970). Ankle (6239025). Comments: 10/25/2019 13:17 Perla Bar RN elongated calf muscle, after Achilles injury [...] 13:45) Review / Management Laboratory Results Plan [place] Society of Anesthesiologists#(ASA) physical status classification: Class III. Anesthetic Preoperative Plan Anesthesia: General. . Anesthetic plan, risks, benefits, and alternatives discussed with the patient and/or family. Patient verbalized understanding. [Electronically Signed on: 10/30/2019 14:50 EDT] Nasim Rausch MD [Verified on: 10/30/2019 14:50 EDT] Nasim Rausch MDNoMcCullough-Hyde Memorial HospitalInpatient Patient Summaryon 10-30-2019 Inpatient [address] [id number] Patient Discharge Instructions Name: KAREN ROMERO : 1975 MRN: [id number] Patient Address: [address] [place] [address] [place] [address] Primary Care Provider: Name: Lm Ramírez DO After you are discharged if you find you have any questions, please, call [phone] ext [phone] to speak to a nurse. Discharge Diagnosis: Internal derangement of left knee Prescription Information: If you have been given a prescription for narcotics, seek immediate medical attention if you have any difficulty breathing or any sudden status changes such as confusion andsleepiness. If you or anyone you know is experiencing suicidal thoughts, mental health, alcohol and/or drug addiction problems; contact the [facility] 23/11 Crisis Hotline -Text 4HSVB ev 091513. If you received any narcotics, sedation, or [...] business decisions or sign any legal documents [facility] would like to thank you for allowing us to assist you with your healthcare needs.The following includes patient education materials and information regarding your injury/illness. KAREN ROMERO has been given the following list of follow-up instructions, prescriptions,and patient education materials: Follow-up Instructions With: Address: When: VIKY MAZA [address] [place] [address], [place] [address] Business (1) 11/07/2019 9:15 AM With: Address: When: Lm Ramírez Medications During the course of your visit, your medication list was updated with the most current information. The details of those changes are reflected below: Medications That Were Updated - Follow Below Instructions Other Medications Updated: Durable Medical Equipment (DME) (CETIRIZ/PSE 5-120MG TAB) 1 tab(s) 2 times a day as neededallergy symptoms. Medications to Continue That Have Not Changed Other Medications albuterol (Ventolin HFA 90 mcg/inh inhalation aerosol) 1 puff(s) Inhalation Every 6 hours as neededfor wheezing. cholecalciferol (Vitamin D3 10,000 intl units [...] 1 puff(s) Inhalation Every 6 hours as neededfor wheezing. cholecalciferol (Vitamin D3 10,000 intl units [...] use it about 20 min/hour for the first24 hours. After that it is optional. TIP: Many patients prefer to use it a little longer because ithelps to reduce the pain. -You should take it easy for the first 3 days following surgery. You should be a ?couch potato? andget up to eat and go to the [...] or concerns, please call the office at [phone] Viruses or Bacteria What?s got you sick? [...] Centers for Disease Control and Prevention January 2014[facility] MAGR Intraoperative Recordon 27-56-2521ZOKO Intraoperative RecordMAGR Intra-Op Record Summary Primary Physician: Savage Roberson DO Finalized Date/Time: 10/30/19 16:29:49 Pt. Name: KAREN ROMERO /Sex: 1975 FEMALE Med Rec #: [id number] Physician: Savage Roberson DO Financial #: [id number] Pt. Type: D Room/Bed: / Admit/Disch: 10/30/19 [...] Attendee Savage Roberson John M MD Radloff, Leigh-Ann CST Andrew DO Role Performed Surgeon - Primary Anesthesiologist of Wad Lub[employer]ator Record Time In 10/30/19 14:59:00 10/30/19 14:59:00 10/30/19 14:59:00 Time Out 10/30/19 15:53:00 10/30/19 15:53:00 10/30/19 15:53:00 Procedure Arthroscopy Knee(Left, Arthroscopy Knee(Left, Arthroscopy Knee(Left, Knee) Knee) Knee) Last Modified By: Rama Shafer RN 10/30/19 Rama Shafer RN 10/30/19 Rama Shafer RN 10/30/19 16:18:35 16:18:35 16:18:35 Entry 4 Entry 5 Case Attendee Brandy Wylie Ruth RN Role Performed Scrub Personnel Grain Thresher Time In 10/30/19 14:59:00 10/30/19 14:59:00 Time [...] Performs skin preparation Im.270.1 Implements protective measures toprevent skin and tissue injury due to chemical [...] regulation A.40 Verifies presence of prosthetics or correctivedevices Im.280 Implements thermoregulation measures Im.60 Uses supplies [...] Savage Roberson Outcome Met (O.130) Yes Horace DO Last Modified By: Rama Shafer RN 10/30/19 [...] Signatures Signed By: Rama Shafer RN 10/30/19 16:29NoPark[facility] PACU Recordon [id number] PACU RecordMAGR PACU Record Summary Primary Physician: Savage Roberson DO Finalized Date/Time: 10/30/19 16:48:45 Pt. Name: KAREN ROMERO/Sex: 1975 FEMALE Med Rec #: [id number] Physician: Savage Roberson DO Financial #: [id number] Pt. Type: D Room/Bed: / Admit/Disch: 10/30/19 13:32:31 - Institution: PACU Case Times MAGR Entry 1 In PACU I 10/30/19 15:45:00 Discharge from PACU 10/30/19 16:29:00 I Last Modified By: Cara Mo RN 10/30/19 16:48:38 General Comments: sTABLE TO TRANSFER TO pHASE II Finalized By: Cara Mo RN Document Signatures Signed By: Cara Mo RN 10/30/19 16:48NoPark[facility] Postoperative Recordon [id number] Postoperative RecordMAGR Phase II Record Summary Primary Physician: Savage Roberson DO Finalized Date/Time: 10/30/19 17:07:12 Pt. Name: KAREN ROMERO/Sex: 1975 FEMALE Med Rec #: [id number] Physician: Savage Roberson DO Financial #: [id number] Pt. Type: D Room/Bed: / Admit/Disch: 10/30/19 13:32:31 - Institution: Phase II Case Times MAGR Pre-Care Text: Patient is free from s/s of injury. Patient remains free from compromised physical state related tosurgery or anesthesia. Patient comfort maintained. Patient/family verbalize [...] Signatures Signed By: Shirlene Kenyon RN 10/30/19 17:07[facility] Preoperative Recordon [id number] Preoperative RecordMA Pre-Op Record Summary Primary Physician: Savage Roberson DO Finalized Date/Time: 10/30/19 16:49:15 Pt. Name: NICK KAREN FAY Paul/Sex: 1975 FEMALE Med Rec #: [id number] Physician: Savage Roberson DO Financial #: [id number] Pt. Type: D Room/Bed: / Admit/Disch: 10/30/19 [...] ready for surgery. The patient remains free froms/s of injury. Patient/family express understanding of plan of care and participate in decisions affectinghis or her perioperrative plan of care. Allergies documented appropriately. Patient identifiers and consent correct. General Comments: Patient arrives ambulatory. Patient denies recent cold/flu symptoms, SOB, diabetes, chest pain, or defibrillator/pacemaker. Pt does have sleep apnea- uses CPAP at night. Finalized By: Cara Mo RN Document Signatures Signed By: Cara Mo RN 10/30/19 16:49[facility] HospitalOperative Report - Surgeon/Physicianon 50-71-8992Qqhkpcduo Report - Surgeon/PhysicianPreoperative diagnosis: Internal derangement left knee with suspected [...] the knee was examined there is no obviousinstability she had good range of motion. The [...] partial medial meniscectomy was performed. I noted somethinning of the articular weightbearing surface of the medial femoral condyle but I did not see anyareas of exposed bone. In the notch the ACL and PCL were both intact In the lateral compartment the articular cartilage was intact the meniscus was grossly normal. Each compartment was revisited the joint was irrigated and evacuated and the portals were closed with nylon sutures [Electronically Signed on: 10/30/2019 15:53 EDT] Savage Roberson DO [Verified on: 10/30/2019 15:53 EDT] Savage Roberson [facility] HospitalPatient Handouton 10-30-2019 Patient HandoutDRMariana MESA POST OPERATIVE KNEE ARTHROSCOPY INSTRUCTIONS SURGEONS WRITTEN INSTRUTCTIONS: -If you have been given a cryo cuff after surgery you should use it about 20 min/hour for the first24 hours. After that it is optional. TIP: Many patients prefer to use it a little longer because ithelps to reduce the pain. -You should take it easy for the first 3 days following surgery. You should be a ?couch potato? andget up to eat and go to the [...] or concerns, please call the office at [phone] [facility] HospitalPregnancy Test Urine 10-30-2019U PregNegativeMarion HospitalComment on above:Performed By: #### [id number] #### [facility] (DEFAULT) [address] [place] [address] 26055H Preg Internal ControlPassNormalMagruder HospitalComment on above:Performed By: #### [id number] #### [facility] (DEFAULT) [address] [place] [address] 13391AEHB-WvS-6 (COVID-19) PCRon 43-30-3841ZOPJA PCRNot DetectedNormalNot DetectedUniversity Hospitals Conneaut Medical Center HospitalComment on above:Performed By: #### [id number] ####[facility] (DEFAULT)[address] [place] [address] 54967Shqckwvk Note - Nurseon 20-37-3027Txzfvigv Note - NurseSpoke with pt and informed her to be here at 1330 and NPO after MN, she verbalizes understanding. [Electronically Signed on: 10/27/2019 13:45 EDT] Meseret Del Angel RN [Verified on: 10/27/2019 13:45 EDT] Meseret Del Angel RNMercy Health St. [facility] Hospital.Auto Diff 1on 63-35-8286Kedl Ritchie %7 %Normal1-12[facility] HospitalComment on above:Performed By: #### [id number], [id number], [id number] ####[facility] (DEFAULT)[address] [place] [address] 83179Slws Abs#0.0 q71Ajjmba5.0-0.2Magrselect medical specialty hospital - cincinnati HospitalComment on above: Performed By: #### [id number], [id number], [id number] ####[facility] (DEFAULT)[address] [place] [address] 30967Sngwrvnqx/100 WBC (Bld)0.4 % Normal0.2-2.0[facility] HospitalComment on above:Performed By: #### [id number], [id number], [id number] ####[facility] (DEFAULT)[address] [place] [address] 15212Ubo Abs#0.2 x06Jnsllg8.0-0.4Magrselect medical specialty hospital - cincinnati HospitalComment on above: Performed By: #### [id number], [id number], [id number] ####[facility] (DEFAULT)[address] [place] [address] 34319Uwficcixmhm/100 WBC (Bld)2.0 % Normal0.9-4.0Magruder HospitalComment on above:Performed By: #### [id number], [id number], [id number] ####[facility] (DEFAULT)[address] [place] [address] 56861Tjlavpjerta (Bld) [#/Vol]1.6 i49Cnelom1.3-2.9Magrselect medical specialty hospital - cincinnati Hospital Comment on above:Performed By: #### [id number], [id number], [id number] ####[facility] (DEFAULT)[address] [place] [address] 13736Pwnfeyivcer/100 WBC (Bld)19 %Mbmtsb92-15Zhjizqkt HospitalComment on above:Performed By: #### [id number], [id number], [id number] ####[facility] (DEFAULT)[address] [place] [address] 39895Jzjn Abs#0.6 y38Zwlvmh8.0-0.8Magrselect medical specialty hospital - [facility] Hospital Comment on above:Performed By: #### [id number], [id number], [id number] ####[facility] (DEFAULT)[address] [place] [address] 68003Gfja Abs#6.0 j01Mkcrxq 1.5-9.2Magruder HospitalComment on above:Performed By: #### [id number], [id number], [id number] ####[facility] (DEFAULT)[address] [place] [address] 93552Gfzdbnuembt/100 WBC (Bld)71 %Zdlvet54-86Aprhhmhc Hospital Comment on above:Performed By: #### [id number], [id number], [id number] ####[facility] (DEFAULT)[address] [place] [address] 68660DSD Standardon 90-58-2834pVHP Non AA>60[facility] HospitalComment on above:Performed By: #### [id number], [id number], [id number] ####[facility] (DEFAULT)[address] [place] [address] 68593sYGR AA>60[facility] HospitalComment on above:Result Comment: Chronic Kidney disease could be indicated at eGFRs of less than 60 ml/min/1.73m2. Kidney Failure is indicated at less than 15 ml/min/1.73m2 Performed By: #### [id number], [id number], [id number] ####[facility] (DEFAULT)[address] [place] [address] 10683Oyesm gap [Moles/Vol]14.0 mmol/L Normal5.0-19.0[facility] Ahuja Medical CenterComment on above:Performed By: #### [id number], [id number], [id number] ####[facility] (DEFAULT)[address] [place] [address] 64379Bjlassv [Mass/Vol]9.2 mg/dLNormal8.9-10.3MGreene Memorial Hospital Comment on above:Performed By: #### [id number], [id number], [id number] ####[facility] (DEFAULT)[address] [place] [address] 71559Nvykvkjq [Moles/Vol]104 mmol/GMtywxm140-939Jdlkieey HospitalComment on above:Performed By: #### [id number], [id number], [id number] ####[facility] (DEFAULT)[address] [place] [address] 62227MD7 [Moles/Vol]24 mmol/RPnbqjq47-45Dxzqzfgj Hospital Comment on above:Performed By: #### [id number], [id number], [id number] ####[facility] (DEFAULT)[address] [place] [address] 32094Dvlfqnwynk [Mass/Vol] 0.63 mg/dLNormal0.60-1.30Magruder HospitalComment on above:Performed By: #### [id number], [id number], [id number] ####[facility] (DEFAULT)[address] [place] [address] 39186Wblbxnt [Mass/Vol]91.0 mg/iFJgpnnv20.0-118.0[facility] HospitalComment on above:Performed By: #### [id number], [id number], [id number] ####[facility] (DEFAULT)[address] [place] [address] 20998Jnhcebrrgk [Osmolality]277 mOsm/[facility] HospitalComment on above:Performed By: #### [id number], [id number], [id number] ####[facility] (DEFAULT)[address] [place] [address] 68734Mbswxkyxu [Moles/Vol]3.7 mmol/LNormal3.6-5.1M[facility] HospitalComment on above:Performed By: #### [id number], [id number], [id number] ####[facility] (DEFAULT)[address] [place] [address] 03615Gumuof [Moles/Vol]138.0 mmol/RGzffik966.0-144.0[facility] HospitalComment on above: Performed By: #### [id number], [id number], [id number] ####[facility] (DEFAULT)[address] [place] [address] 67574Ieon nitrogen [Mass/Vol]18 mg/dL Normal8-26[facility] HospitalComment on above:Performed By: #### [id number], [id number], [id number] ####[facility] (DEFAULT)[address] [place] [address] 87348Jdxo nitrogen/Creatinine [Mass ratio]29.0 mg/mgHigh4.6-16.2 [facility] HospitalComment on above:Performed By: #### [id number], [id number], [id number] ####[facility] (DEFAULT)[address] [place] [address] 02747 CBC w/ Auto Diffon 88-39-3753Oztcrmoeaxp distribution width (RBC) [Ratio]12.8 % Mymlqt43.5-15.0[facility] HospitalComment on above:Performed By: #### [id number], [id number], [id number] ####[facility] (DEFAULT)[address] [place], [place] [address]Hematocrit (Bld) [Volume fraction]40.2 %Eotgfo09.7-40.4[facility] HospitalComment on above:Performed By: #### [id number], [id number], [id number] ####[facility] (DEFAULT)[address] [place] [address] 80666Yhosoeyxka (Bld) [Mass/Vol]12.9 g/dPJllflv99.3-15.9[facility] HospitalComment on above: Performed By: #### [id number], [id number], [id number] ####[facility] (DEFAULT)[address] [place] [address] 98611Fku Diff?AutoNormalUniversity Hospitals Conneaut [facility] Center HospitalComment on above:Performed By: #### [id number], [id number], [id number] ####[facility] (DEFAULT)[address] [place] [address] 93039IXC (RBC) [Entitic mass]32 fzIstjgy83-88Vfllizle HospitalComment on above:Performed By: #### [id number], [id number], [id number] ####[facility] (DEFAULT)[address] [place] [address] 27043FBWP (RBC) [Mass/Vol]32 g/vWNvgmmc33-69Yizhtytk HospitalComment on above:Performed By: #### [id number], [id number], [id number] ####[facility] (DEFAULT)[address] [place] [address] 96124HDE (RBC) [Entitic vol]98 nLZnabde33-359Uwvphujq HospitalComment on above:Performed By: #### [id number], [id number], [id number] ####[facility] (DEFAULT)[address] [place] [address] 47406Fgedtvun mean volume (Bld) [Entitic vol]11.2 fLHigh 6.3-10.2[facility] HospitalComment on above:Performed By: #### [id number], [id number], 9031900 ####[facility] (DEFAULT)[address] [place] [address] 25467Cmqmktqhf (Bld) [#/Vol]270 r22Bkpkov095-470Ihprpaxn Hospital Comment on above:Performed By: #### [id number], [id number], [id number] ####[facility] (DEFAULT)[address] [place] [address] 19407GCH (Bld) [#/Vol]4.09 t10Xoqixk0.70-5.30[facility] HospitalComment on above:Performed By: #### [id number], [id number], [id number] ####[facility] (DEFAULT)[address] [place] [address] 81595VSG (Bld) [#/Vol]8.5 t68Cmlzcf5.5-10.5[facility] HospitalComment on above:Performed By: #### [id number], [id number], 6794460 ####[facility] (DEFAULT)[address] [place] [address] 70421Cgfxezdt Orderson 10-12-2019 Provider [id number]#1.00OTGTIFFNormal [facility]ja Medical CenterCoding Summaryon 49-72-6167Qqfllx SummaryCODING DATE: 09/29/2019 FINAL [facility] STATUS: Home PAYOR: Commercial Insurance APC DESCRIPTION [...] By: Lori Padilla Date Saved: 09/29/2019 08:27 [facility] - MRI Reporton 68-87-3524Mje - MRI [id number]#1.00OTGTIFF [facility] HospitalRelease of Informationon 19-20-5533Bpcliyu of Information [id number]#1.00OTGTIFFMercy Health St. Joseph Warren HospitalMRI LE Joint w/o Contrast Lefton 68-31-2511QTC LE Joint w/o Contrast LeftHISTORY: Pain along the lateral aspect of the [...] Signature): Heber Pedraza 09/28/19 11:43 a Technologist: [facility] Vital Signs Date TimeVital SignValuePerforming KtnnluujdFeekwbax20-89-2821 09:00-0400Body .9 cmSteven [facility] DPM Work Phone: [phone] HospitalByslqgllwm43-64-6866 09:00-0400Body mass index (BMI) [Ratio]38.92 kg/d4Xzqohg Rusher DPM Work Phone: [phone] HospitalGtxjkzzqtk32-52-4873 09:00-0400Body anzmjt28.44 kgStevNor-Lea General Hospitalher DPM Work Phone: [phone]74[facility] HospitalCdrzlzvijt88-90-4386 18:22-0400Body ztcyjr820.4 cmF[facility]04-11-2025 18:22-0400Body mass index (BMI) [Ratio]40.6 kg/y6XqudefgvqFayette [facility] Hospital04-11-2025 18:22-0400Body arfjwnknywi60.6 [degF][facility]04-11-2025 18:22-0400Body xtuxbq68.4 kgF[facility] Hospital04-11-2025 18:22-0400Diastolic blood cdxhapbz86 mm[Hg][facility]04-11-2025 18:22-0400 Heart rate91 /[facility]04-11-2025 18:22-0400 Respiratory rate18 /[facility]04-11-2025 18:22-0400 SaO2% (BldA) [Mass fraction]98 %[facility]04-11-2025 18:22-0400Systolic blood wlzubfdg970 mm[Hg][facility] 07-25-2024 12:08-0400Body azznxk257.94 cmF[facility] 07-25-2024 12:08-0400Body mass index (BMI) [Ratio]39.1 kg/m1OaizflxkqF[facility] Hospital03-25-2025 12:08-0400Body lqxyoqikktc43.4 [degF][facility]03-25-2025 12:08-0400Body .89 kgF[facility] Hospital03-25-2025 12:08-0400Diastolic blood datlqrmi61 mm[Hg][facility]03-25-2025 12:08-0400Heart rate74 /[facility]03-25-2025 12:08-0400Respiratory rate14 /[facility]03-25-2025 12:08-2838NoA3% (BldA) [Mass fraction]96 %[facility]03-25-2025 12:08-0400Systolic blood thhvufsh934 mm[Hg] [facility]02-27-2025 15:22-0500Body ecsvpr669.94 cm [facility]02-27-2025 15:22-0500Body mass index (BMI) [Ratio]39.4 kg/r5FohjeoennFayette County Memorial Hospital02-27-2025 15:22-0500Body ojanlr43.8 kgF[facility] Hospital02-27-2025 15:22-0500Diastolic blood manayhaw76 mm[Hg][facility]02-27-2025 15:22-0500 Heart rate83 /[facility]02-27-2025 15:22-0796OyU3% (BldA) [Mass fraction]98 %[facility]02-27-2025 15:22-0500 Systolic blood wpvxzijk017 mm[Hg][facility]01-13-2025 15:51-0500Body mass index (BMI) [Ratio]38.92 kg/c8Nulbjsv Visci DO Work Phone: [facility] HospitalHlhznmebkc04-68-4391 15:51-0500Body mlxpef76.44 kgRichrobert Visci DO Work Phone: [facility] HospitalVpntujucph64-11-6983 15:51-0500Diastolic blood ynsqzltc70 mm[Hg]Yariel Visci DO Work Phone: [facility] HospitalNpiilugflu42-26-7039 15:51-0500Systolic blood yqmouogp160 mm[Hg]Yariel Visci DO Work Phone: [facility] HospitalHdnumgxhkh84-11-2618 16:15-0500Body dvggao431.94 cmF[facility] Hospital12-16-2024 16:15-0500Body mass index (BMI) [Ratio]389.5 kg/j0IkpcuuuvdFayette County Memorial Hospital12-16-2024 16:15-0500Body mdfokdknohq80.9 [degF][facility]12-16-2024 16:15-0500Body ukqdeh452.3 kgF[facility] County Memorial Hospital12-16-2024 16:15-0500Diastolic blood pkmdlavc54 mm[Hg][facility]12-16-2024 16:15-0500 Heart rate86 /[facility]12-16-2024 16:15-0500 Respiratory rate19 /[facility]12-16-2024 16:15-0500 SaO2% (BldA) [Mass fraction]98 %[facility]12-16-2024 16:15-0500Systolic blood mm[Hg][facility] 06-03-2023 15:32-0500Body mass index (BMI) [Ratio]40.62 kg/j7WvdwjhpIvone DAY Work Phone: [facility] HospitalNetClarity Rxfkxn02-17-7505 15:32-0500Body hyzkpo89.35 kgIvone Hernández APRN-DIRECTOR OF AUDIOLOGY Work Phone: [facility]Amplidata Ayoerl55-18-5500 15:32-0500Diastolic blood pjsiifti04 mm[Hg]Ivone Hernández APRN-DIRECTOR OF AUDIOLOGY Work Phone: [facility] HospitalNetClarity Fshmio53-92-1472 15:32-0500Heart rate 79 /minIvone Hernández BOARD CERTIFIED BEHAVIORAL ANALYST-DIRECTOR OF AUDIOLOGY Work Phone: [facility] HospitalAmplidata Yxvprd26-37-1179 15:32-0500Systolic blood ddshabge126 mm[Hg]Ivone Hernández BOARD CERTIFIED BEHAVIORAL ANALYST-DIRECTOR OF AUDIOLOGY Work Phone: [facility] HospitalAmpl[facility]ata Qtesjv93-54-7953 13:15-0500Body .94 cmPeggy Campo Other [employer] Other 02-01-2024 13:15-0500Body mass index (BMI) [Ratio] 39.11 kg/h5Sratx Campo Other [employer] Other 02-01-2024 13:15-0500Body xjhwgi39.9 kgPeggy Campo Other [employer] Other 02-01-2024 13:15-0500Diastolic blood cnyqmkoa23 mm[Hg] Aparna Campo Other [employer] Other 02-01-2024 13:15-7774CbO0% (BldA) [Mass fraction]95 % Aparna Campo Other [employer] Other 02-01-2024 13:15-0500Systolic blood pyfemwzx838 mm[Hg] Aparna Campo Other [employer] Other 01-28-2024 11:30-0500Body mxvsly867.94 cmPeggy Campo Other [employer] Other 01-28-2024 11:30-0500Body mass index (BMI) [Ratio] 38.92 kg/i0Hesow Campo Other [employer] Other 01-28-2024 11:30-0500Body epulapyteae58 [degF]Aparna Campo Other [employer] Other 01-28-2024 11:30-0500Body .44 kgPeggy Campo Other [employer] Other 01-28-2024 11:30-0500Respiratory rate18 /minPeggy Campo Other [employer] Other 01-28-2024 11:30-5007VcD1% (BldA) [Mass fraction]97 % Aparna Campo Other [employer] Other 10-14-2021 12:15-0400Body mzhdii566.94 Sageameljane Tam Other [employer] Other 10-14-2021 12:15-0400Body mass index (BMI) [Ratio] 45.34 kg/i1Vscbxq Anel Other [employer] Other 10-14-2021 12:15-0400Body bckbeozgxvl15.9 [degF]Christianaeric Tam Other [employer] Other 10-14-2021 12:15-0400Body itliby324.86 kgChristiana Tam Other [place] [employer] Other 10-14-2021 12:15-0400Respiratory rate18 /minChristiana Tam Other [place] [employer] Other 10-14-2021 12:15-9380RzN3% (BldA) [Mass fraction]96 % Christiana Tam Other noun[facility] [employer] Other Encounters Encounter DateEncounter TypeCare ProviderFacilityStart: 09-29-2024 End: 50-53-1888Dbwrgw flowsheetSteven A Rusher DPM Work Phone: noms PODIATRYStart: 09-29-2024 End: 09-63-0264Meqbsr flowsheetSteven A Rusher DPM Work Phone: noms PODIATRYStart: 09-29-2024 End: 98-37-9959Vmzyvjss Result EncounterSteven A Rusher DPM Work Phone: noms External Department UnsolicitedStart: 09-29-2024 End: 47-83-3661Oxqwhp outpatient new 30 minutesSteven A Rusher DPM Work Phone: noms PODIATRYComment on above:Ganglion cyst of right foot (Primary Dx); Pain in right foot; Difficulty walkingStart: 09-29-2024 End: 05-85-8906werzibzmpwNHTICV A RUSHERNot AvailableStart: 08-11-2024 End: 26-83-1196ydnavgfefhSmelgadfnSt. [facility] Work Phone: Start: 08-11-2024 End: 11-65-2246Aiycbup encounter procedureFirsthealth [facility] Work Phone: Start: 07-25-2024 End: 69-70-8644zwfhelijnmNskgkebfqSt. [facility] Work Phone: Start: 07-25-2024 End: 32-80-7330Iembhot encounter procedureRajan Physician GroupCAPITAL DISTRICT [facility] Work Phone: Start: 06-29-2024 End: 11-17-4711vgrbivnuqkBeypbemep Regional [facility] Center Work Phone: Start: 06-29-2024 End: 36-47-3332Mxtquvd encounter procedureFirsthealth [facility] Work Phone: Start: 05-15-2024 End: 65-16-5424Tbogzkg encounter statusRichard A Visci DO Work Phone: noms HealthcareStart: 05-15-2024 End: 47-21-2369Fzebdqni preventive med est patient 40-64yrsRichard A Visci DO Work Phone: noms [facility] OBComment on above:Menometrorrhagia (Primary Dx); Encounter for gynecological examination without abnormal finding; Encounter for screening mammogram for malignant neoplasm of breast; PMDD (premenstrual dysphoric disorder) ([facility]); Night sweatsStart: 05-15-2024 End: 29-01-7877fzzqpzikuoITRUHFX A VISCINot AvailableStart: 04-28-2024 End: 11-33-3250Xvatlbeix Result EncounterRichard A Visci DO Work Phone: noms External Department UnsolicitedStart: 04-28-2024 End: 59-31-4546Wsafrupqn Result EncounterRichard A Visci DO Work Phone: noms External Department UnsolicitedStart: 04-17-2024 End: 40-09-3642Yhwnwfv encounter procedureVanna Physician GroupCAPITAL DISTRICT PS[facility] Work Phone: Start: 07-06-2023 End: 15-96-2790Zjvhffzwqn and management of inpatientVERN D REYNOLDSMiddletown Hospitalca San Luis Rey Hospitaltart: 07-05-2023 End: 53-50-9464Yzolnkgvkl and management of inpatientMICHAEL E GRILLISProMedica Warrensburg HospitalStart: 06-03-2023 End: 36-97-5245euldpqsusnEVYFRCF A [facility] Start: 06-03-2023 End: 26-29-7288Hhcsmis encounter procedureIvone Jane Edgar BOARD CERTIFIED BEHAVIORAL ANALYST-DIRECTOR OF AUDIOLOGY Work Phone: [facility] Physicians General SurgeryComment on above: Encounter for screening colonoscopy (Primary Dx)Start: 06-03-2023 End: 59-27-6684soenuqkhlxLjkl SteeleFacility:[facility] Start: 86-70-7808Qsdsyz outpatient visit [address] [facility] OutPtStart: 06-03-2023 End: 97-24-6362plvwkdmsvrYD Carl Steele Work Phone: [facility] Work Phone: Start: 06-03-2023 End: 72-56-9488Xgfsnxz encounter procedureDO Lm Ramírez Work Phone: [facility]-Sleep Lab Work Phone: Start: 05-30-2023 End: 81-17-0736odxtkpjgpiObeqt Hart Other [facility] [employer] Other Start: 11-80-6301Xqmjzo outpatient visit 15 minutes Aparna HartFPG Urgent Care ClydeStart: 53-11-4754Vtychagsz encounterIvone Hernández BOARD CERTIFIED BEHAVIORAL ANALYST-DIRECTOR OF AUDIOLOGY Work Phone: [facility] Physicians [facility] SurgeryStart: 04-15-2022 End: 43-28-7045becctvpjzwNW Lm Ramírez Work Phone: [facility] Work Phone: Start: 04-15-2022 End: 25-49-9126Ojwofma encounter procedureDO Lm Ramírez Work Phone: [facility]-Sleep LabStart: 03-03-2022 End: 94-75-9439mafadcweydZP LM EFRGUSONacility:T0Vlrgf: 01-27-2022 End: 18-05-2237qvhcvqpomhQA CORETTA YOOFacility:G2Otshj: 12-18-2021 End: 42-55-1821cxuuorxcwhYO LM Mary STEELEFacility:B1Mycrd: 62-83-4072Hgkgcxgqk for preprocedural laboratory examinationDR [facility] Start: 04-21-2021 End: 78-92-3180mgjvadpswwMG CORETTA YOOFacility:M6Qhgxe: 04-17-2021 End: 62-14-3464glxipdfrthFD CORETTA Schmidcility:P8Cvsbx: 04-17-2021 End: 96-58-1043Vikaokqnm for preprocedural laboratory examinationDR CORETTA Schmidcility:W7Krous: 82-74-7021Oqoxkewjp for preprocedural cardiovascular examinationDR CORETTA Premier Healthtart: 04-08-2021 End: 63-51-1486qtznbacipzFG LM FERGUSONacility:C1Dmbpi: 04-08-2021 End: 89-81-7844Tbsgajukq for preprocedural cardiovascular examinationDR LM FERGUSONacility:K9Ridsz: 74-41-0596Yrmmcv outpatient visit 15 minutesPamela DymondFPG Urgent Care [facility]ra Procedures DateProcedureProcedure DetailPerforming ClinicianStart: 77-73-3274CACYGBYT NON-GYNECOLOGICStseth Lucero DPM Work Phone: Start: 75-20-4472Uzfjc foot complete minimum 3 views Arun Lucero DPM Work Phone: Start: 16-87-8691DE TOMOSYNTHESIS SCREENING BIRichard A Visci DO Work Phone: start: 71-81-6156OkzekzqsdxiAnuyptw Visci DO Work Phone: start: 75-29-1914LukujodjyoxNbgxhbz Visci DO Work Phone: Plan of Treatment DateCare ActivityDetailAuthorStart: 47-11-3407Lgvejqymr for malignant neoplasm of colonNOMS HealthcareStart: 05-23-2025 End: 16-51-5440Ppwrsqz encounter procedureNOOR SWS OBStart: 67-84-6052Pwutikfja for malignant neoplasm of breastMammogramNOMS HealthcareStart: 01-01-2025 Influenza vaccinationInfluenza Vaccine (#1)[facility] HealthcareStart: 09-29-2024 End: 29-17-2228Icjiush encounter oiqoxukah91/30/2025 9:00 AM EDT Office Visit [facility] [address] [place] [address] Arun Lucero, DP [address] [place] [address] ArrivedGRAYS HARBOR COMMUNITY HOSPITAL PODIATRYComment on above:ArrivedStart: 90-21-1231Hfbbu BMI ScreeningAdult BMI ScreeningProChildren'S Hospital Of [facility] SystemStart: 80-65-0014Cqdcpol ScreeningTobacco ScreeningShelby Memorial Hospital SystemStart: 06-03-2023 End: 44-01-4465Utpyrpz encounter aizulpbhf72/01/2024 3:30 PM EST Office Visit [facility] [address] [place], [id number] Ivone Hernández, BOARD CERTIFIED BEHAVIORAL ANALYSTENCOMPASS [facility] [address] [place] [address] [facility] SurgeryStart: 19-74-1759KLBOJ-19 Vaccine ( season)COVID-19 Vaccine ( season)[facility] SystemStart: 64-85-0432Yvltyjgmk vaccinationInfluenza VaccineShelby Memorial Hospital SystemStart: 21-39-1767Pulkx BMI ScreeningAdult BMI ScreeningProChildren'S Hospital Of [facility] SystemStart: 39-52-1667Fnquyty ScreeningTobacco ScreeningShelby Memorial Hospital SystemStart: 17-65-4017UPnS,Tdap and Td Vaccines (2 - Td or Tdap)DTaP,Tdap and Td Vaccines (2 - Td or Tdap)[facility] Start: 06-31-1471Rwzfjycui for malignant neoplasm of cervixNOMS HealthcareStart: 33-18-1087Qbgkqikez for malignant neoplasm of cervixPap SmearNOMS Healthcare Start: 52-24-3722Kbhlrqqtsk ScreeningDepression ScreeningMercy Health Kings [facility] Hospital Start: 14-29-2670Aotuytnty for malignant neoplasm of colonNOMS Healthcare End: 04-89-2256LobdrlteaklVgntiokllme GI Routine Encounter for screening colonoscopy 1 Occurrences starting 06/03/2023 until 06/03/2024[facility] Work Phone: Comment on above:1 Occurrences starting 06/03/2023 until 06/03/2024[facility] Immunizations Immunization DateImmunizationNotesCare XschzavkFhsubmut30-68-7187wlpcptrnc, seasonal, injectable, preservative freeSteven Rusher DPM Work Phone: [phone] [place], [place] [address]Hrkozehioa05-71-9468wjcqjuobf virus vaccine, unspecified formulationSteven Rusher DPM Work Phone: [phone] [place], [place] [address]Ntltvikdfn36-97-6329xyewsscno, injectable, quadrivalent, preservative freeSteven Rusher DPM Work Phone: [phone] [place], [place] [address]Cauhpewnor31-19-8645pbgwcavoy, injectable, quadrivalent, preservative freeSteven Rusher DPM Work Phone: [phone] [place], [place] [address]Lvgfqtcbzn61-40-4102vbotphwty, injectable, quadrivalent, preservative freeSteven Rusher DPM Work Phone: [phone] [place], [place] [address]Fqnxbgfgnw58-69-7933mseemwraj virus vaccine, unspecified formulationIvone Hernández BOARD CERTIFIED BEHAVIORAL ANALYST-DIRECTOR OF AUDIOLOGY Work Phone: [facility] HospitalDrvcun60-91-5883zypwylkyekdl conjugate vaccine, 13 valentSteven Rusher DPM Work Phone: [phone] [place], [place] [address]Fkhhpnqaag35-00-9482doehwxltr, injectable, quadrivalent, preservative freeSteven Rusher DPM Work Phone: [phone] [place], [place] [address]Xewvkclndr21-76-7753skgrrbfnu, injectable, quadrivalent, preservative freeSteven Rusher DPM Work Phone: [phone] [place], [place] [address]Qztysurheo51-91-5425Cwvqaqdwy, injectable, Madin Iberia Canine Kidney, preservative free, quadrivalentSteven Rusher DPM Work Phone: [phone] [place], [place] [address]Avxrnmxdpc88-40-7727Riexmlhwn, injectable, Madin [place]beria Canine Kidney, preservative free, quadrivalentSteven Rusher DPM Work Phone: [phone] [place], [place] [address]Cwcvgwtbpo92-53-3146DEXAFYQ - 10 Mable Tam Other [employer] Other [id number], injectable, Madin Monica Canine Kidney, preservative free, quadrivalentSteven Rusher DPM Work Phone: [phone] [place], [place] [address]Rvpaweaykv66-14-9857jbiesxqmm, seasonal, injectable, preservative freeSteven Rusher DPM Work Phone: [phone] [place], [place] [address]Xqmjzznfkb28-12-5855fhfgkuyfaihm polysaccharide vaccine, 23 valentSteven Rusher DPM Work Phone: [phone] [place], [place] [address]Cmkijpquxn33-21-0470adrphqeog, injectable, quadrivalent, preservative freeSteven Rusher DPM Work Phone: [phone] [place], [place] [address]Cupynpwtyx98-29-5927yrfrbexxu, seasonal, injectable, preservative freeSteven Rusher DPM Work Phone: [phone] [place], [place] [address]Bvmbgujlxs83-11-6604iypztonlv A vaccine, pediatric/adolescent dosage, 2 dose scheduleSteven Rusher DPM Work Phone: [phone] [place], [place] [address]Aebccodtqs77-38-7899lnlfzmfqy A vaccine, pediatric/adolescent dosage, 2 dose scheduleSteven Rusher DPM Work Phone: [phone] [place] [address]Nllzbmdpip20-44-9139cssklqaiam vaccine, unspecified formulationSteven Rusher DPM Work Phone: [phone] [place], [place] [address]Gmzcqkmcwb36-78-9621qplhdzb toxoid, reduced diphtheria toxoid, and acellular pertussis vaccine, adsorbedSteven Rusher DPM Work Phone: [facility] HospitalDwxczswsgk44-17-7915jbxqimg capsular polysaccharide vaccineSteven Rusher DPM Work Phone: [facility] HospitalLjmhuzccts48-59-9662mveuqbpli B vaccine, adult dosageSteven Rusher DPM Work Phone: [phone] HospitalGpymfjsdqp03-73-7402honalxjyq B vaccine, adult dosageSteven Rusher DPM Work Phone: [phone] [facility]'s HospitalTduonohjoq68-38-4785zjisapesr B vaccine, adult dosageSteven Rusher DPM Work Phone: [facility] Payers DatePayer CategoryPayerPolicy [id number] [id number] Health InsuranceMEDICAL MUTUAL [id number] MUTUAL MMO SUPERMED [id number] 2016-Present [phone] [address] [place], [place] [id number] .0.1.838316.3.57[id number] .0.1.494485.3.57[id number] 2.16840.1.815063.3.579.[id number] 2.16.840.1.620917.3.57[id number] 2.16.840.1.663095.3.579.2.04250-60-6815Cufwcur35986840 2.840.1.580125.3.579.2.101787-78-7792Gemcrmp99438505 2.840.1.920533.3.57[id number] 2.840.1.999278.3.579.2.9[id number] 2.840.1.859457.3.579.2.539[id number] 2.840.1.460360.3.579.2.392144-52-4584Rvyjivs3855042 2.0.1.783999.3.579.2.850644-53-3040Nvshiff3564406 2.840.1.958516.3.579.2.884726-73-5261Qvttxmu8550521 2.0.1.286426.3.579.2.798156-75-8278Tcjv-mig45556067440-88-1707Zgtxjuf [id number] 2.840.1.537211.12Wuggbjf8492282 2.840.1.227070.3.579.2.593 [id number] 2.840.1.490212.3.579.2.531 Social History DateTypeDetailFacilityUnknown if ever smokedNouniversity health lake[facility] [employer] Other Start: 04-30-2023 End: 33-66-7083Aye Assigned At [facility] HealthNOOR HealthcareStart: 12-36-4800Jlg Assigned At [facility] Hospitaltart: 04-30-2023 End: 93-98-6184Wuxmupz smoking status NHISNever smoked tobaccoNOMS Healthcare Start: 04-30-2023 End: 78-80-6742Lqimekq use and exposureSmokeless tobacco non-userUniversity Hospitals [facility] Center Health SystemStart: 04-30-2023 End: 94-30-3930Opsfboggs beverage intakeCurrent drinker of alcohol (finding) [facility] SystemStart: 04-30-2023 End: 11-05-9638Pjjokfn of Social functionNOMS HealthcareHow often to you have a drink containing alcohol?Monthly or lessNOMS HealthcareHow many standard drinks containing alcohol do you have on a typical day?1 or 2NOMS HealthcareHow often do you have 6 or more drinks on 1 occasion?NeverNOOR HealthcareStart: 04-30-2023 Tobacco CommentMy mother smoked most of my life. I HATED it.[facility] Start: 24-96-6571Dxqqulc CommentSocial drinker, but rarely more than 2-3 drinks. NOM HealthcareStart: 09-87-8196Ehf assigned at birthNot on fileProChildren'S Hospital Of [facility] SystemStart: 61-18-6485Ctxwsfr InstabilityUnknownNOMS HealthcareStart: 80-43-5090Uwfimax CommentSocially; 1-4 beers once/monthShelby [facility] Hospital [facility] Start: 41-11-3561Wysebw identityIdentifies as female gender (finding)[facility] SystemStart: 65-55-2999Veeyvo orientationHeterosexual (finding)[facility] SystemStart: 06-29-2024 End: 21-58-1401PtrCnufxv (finding)[facility] Medical Equipment Procedure CodeEquipment CodeEquipment Original TextEquipment IdentifierDates Start: 02-24-2023 Clinical Notes 02-13-2021 to 09-29-2024 Note Date & QgeoYvmgUmskocfy99-83-4075 History of Present illness Narrative* Arun Lucero DPM - 09/29/2024 9:00 AM EDT Images from the original note were not included. Subjective Patient ID: Karen Romero is a 48 y.o. 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 Patient states she might've noticed something starting a couple months ago, but did not think much of it at the time, but noticed it this past weekend and states it is painful to the touch. ). HPI Initial patient encounter and assessment. Chief complaint: Painful lump right midfoot. Denies injury or trauma. Denies pop or snap sensation. Relates no recent change in activity or footwear. Initially noted some element about 2 months previous; notably larger and progressively symptomatic over the past week or so; impacting ADLs and walking activity. The mass is notably larger towards the end of the day; typically smaller in the morning when 1st arising. Denies bruising, discoloration, dysesthesias or radicular pain. Denies streaking or constitutional symptoms. First such condition of this nature. Medications Current Outpatient Medications: Acetylcysteine (N-Acetyl Cysteine) 600 MG capsule, Take 600 mg by mouth 1 (one) time each day, Disp: , Rfl: cetirizine-pseudoephedrine (ZyrTEC-D) 5-120 MG 12 hr tablet, Take 1 tablet by mouth in the morning and 1 tablet before bedtime., Disp: , Rfl: Cholecalciferol (Vitamin D-3) 5000 UNIT/ML liquid, 5,000 Units, Disp: , Rfl: FLUoxetine (PROzac) 20 MG capsule, Take 1 capsule (20 mg) by mouth Daily, Disp: 90 capsule, Rfl: 3 Lancets (OneTouch Delica Plus Kinrmi80T) [facility], , Disp: , Rfl: lisinopril 20 MG tablet, Take 20 mg by mouth in the morning., Disp: , Rfl: montelukast (Singulair) 10 MG tablet, 10 mg 1 (one) time each day at the same time, Disp: , Rfl: Mounjaro 12.5 MG/0.5ML solution auto-injector, Inject 12.5 mg under the skin 1 (one) time per week,Disp: , Rfl: Multiple Vitamins-Minerals (Multivitamin Women 50+) tablet, , Disp: , Rfl: norethindrone-ethinyl estradiol (June05/22) 1-20 MG-MCG tablet, Take 1 tablet by mouth Daily Active pills only, Disp: 120 tablet, Rfl: 3 OneTouch Verio test strip, 1 each, Disp: , Rfl: triamcinolone (Nasacort Allergy 24HR) 55 MCG/ACT nasal inhaler, 2 sprays, Disp: , Rfl: Allergies Dust mite extract, Grass pollen(k-o-r-t-swt hazel), Azithromycin, and Erythromycin Past Surgical History Past Surgical History: Procedure Laterality Date ABDOMINAL SURGERY 08/2014 CHOLECYSTECTOMY 08/2015 Nolvia COLPOSCOPY Unsure; Around 2012? DILATION AND CURETTAGE OF UTERUS April 2021 HYSTEROSCOPY 04/21/2021 Hysteroscopy, D and C, Myosure (Fibroid removal/myomectomy) KNEE ARTHROSCOPY W/ PARTIAL MEDIAL MENISCECTOMY Left 10/30/2019 Medial mesicectomy/ Abrasion chondroplasty - Dr. Da WICK Bilateral 04/05/2008 Dr. Pulido LEG TENDON SURGERY Right 06/2016 Endoscopic gastrocnemius recession - PDH MYOMECTOMY Decemeber 2020 WISDOM TOOTH EXTRACTION 1994 Family History Family History Problem Relation Name Age of Onset Cataracts Mother Ashlie Romero Osteoarthritis Mother Ashlie Romero Hypertension Mother Ashlie Romero Stroke Mother Ashlie Romero Thyroid disease Mother Ashlie Romero Retinal detachment Father Jesse Romero Cataracts Father Jesse Romero Asthma Father Jesse Romero Hypertension Father Jesse Romero Stroke Father Jesse Romero Macular degeneration Maternal Grandmother Nitza [place] Glaucoma Maternal Grandmother Nitza [place] Cataracts Maternal Grandmother Nitza [place] Osteoarthritis Maternal Grandmother Nitza [place] Colon cancer Maternal Grandmother Nitzaharmeet Oh Hypertension Maternal Grandmother Nitzaharmeet [place] Stroke Maternal Grandmother Nitzaharmeet [place] Thyroid disease Maternal Grandmother Nitza [place] Depression Maternal Grandmother Nitza [place] Cancer Maternal Grandmother Nitza [place] Cataracts Maternal Grandfather Lm Oh Diabetes Maternal Grandfather Lm Oh Hypertension Maternal Grandfather Lm Oh Alzheimer's disease Maternal Grandfather Lm Oh Asthma Maternal Grandfather Lm [place] COPD Maternal Grandfather Lm [place] Cataracts Paternal Grandmother Rama Romero Cancer Paternal Grandmother Rama Romero Cataracts Paternal Grandfather Chi Romero Asthma Paternal Grandfather Chi Romero Diabetes Paternal Grandfather Chi Romero Heart failure Paternal Grandfather Chi Romero Hypertension Paternal Grandfather Chi Romero Breast cancer Father's Sister Bella Romero Objective General assessment: Alert and oriented. Pleasant disposition. Wearing sandals. Vascular: DP 2/4 bilateral. PT 2/4 bilateral. CFT brisk all digits. Gradient temperature: Warm-warm bilateral. Unremarkable for ankle edema. Neurologic: Tactile and light touch sensation intact. Dermatologic: Skin turgor is good. Web space areas are clean, dry, non-inflamed. Unremarkable for eczema or dermatitis. No clinical signs of ulceration or open wound. Orthopedic: Range of motion: Functional ankle, subtalar and 1st MTP joint range of motion. Lesion pattern: No forefoot or digital keratotic lesions are noted. Stance assessment: Symmetrical, stable, mild cavus foot type. Focused exam right foot: Well-defined, raised, mildly fluctuant soft tissue cystic-like mass; located on the dorsal-lateral surface of the midfoot; appears to be overlying the calcaneal-cuboid joint.The mass is moderately tender. Non- adherent to the skin and freely movable over the deep fascial layer. Measurements: 2.3 x 2.0 x 0.4 cm. Radiology: RADIOGRAPHS: 3 views right foot: Weight-bearing: DP, oblique, lateral: 09/29/2024: Unremarkable foracute osseous or joint pathology. Unremarkable for fracture or stress fracture changes. Unremarkable for os peroneum. Unremarkable for osteophyte formation or arthritic changes. Well-formed enthesophyte at the insertion of the plantar fascia. Calcific deposition at the insertion of the Achilles tendon. Assessment/Plan Symptomatic ganglion/synovial cyst right foot as described. Jessica gastrocnemius recession RLE by history (Dr. Wild). Plan: Review of clinical and x-ray findings, differential diagnosis, etiology and contributing/aggravating factors, treatment strategy, rationale and objectives. Right foot: Aspiration/injection of cystic lesion as described. Compression dressing intact, clean and dry 3 days. Aspirate submitted for histology. Ibuprofen and/or Tylenol as needed for comfort. Patient scheduled to depart for [facility] next week. Procedure: RIGHT FOOT: Aseptic technique: Utilizing 18 gauge needle and 5 cc syringe; aspirated about 1.0 cc of straw-colored gelatinous material; followed by intra- lesional injection of xylocaine with 0.2 cc Kenalog 40 in a needling technique. Well tolerated. Compression dressing applied. This note was created with the assistance of a speech recognition program. While intending to generate a timely document that accurately reflects the content of the visit, no guarantee can be provided that every grammatical or spelling mistake has been or will be identified or corrected. Thank you for your understanding. Arun Lucero DPM documented in this [facility]05-30-2025 Instructions* Patient Instructions* Arun Lucero DPM - 09/29/2024 9:00 AM EDT As noted documented in this [facility]02-27-2025 Evaluation note* Diagnosis Onset Date Resolution Status Admit Date BMI 39.0-39.9,adult acuteFebruary 2024 3:11pmHypertensionacuteFebruary 2024 3:11pm Obstructive sleep apneaacuteFebruary 2024 3:11pm [facility] Work Phone: 1(542) 238-977502-27-2025 Evaluation note* Diagnosis Onset Date Resolution Status Admit Date BMI 39.0-39.9,adult acuteFebruary 2024 3:11pmHypertensionacuteFebruary 2024 3:11pm Obstructive sleep apneaacuteFebruary 2024 3:11pmAcute effusion of both middle earsnoneactiveMarch 2024 11:56am [facility] Work Phone: 1(988) 374-808501-13-2025 History of Present illness Narrative* Yariel Calles, - 05/15/2024 3:15 PM EST Images from the original note were not included. Yariel Calles, Obstetrics and Gynecology Karen Romero 1975 05/15/24 [id number] Yearly Wellness Exam Chief Complaint Patient presents with Gynecologic Exam Pt presents for yearly. 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 Visit Vitals BP 150/90 Wt 206 lb LMP 05/03/2024 BMI 38.92 kg/m OB Status Unknown Smoking Status Never BSA 2 m History of Present Illness The patient presents for her yearly checkup. She reports experiencing menorrhagia, characterized by heavy and irregular menstrual cycles. Approximately 6 months ago, she had a 3-day period of minimal bleeding, followed by a subsequent episode of heavy bleeding 2 weeks later. The frequency of her menstrual cycles varies, occurring sometimes every 28 days, 12 days, or even 54 days. She also experiences occasional night sweats, but is uncertain if these are related to menopause or a recent illness. She has no bowel or bladder issues and reports no changes in her breasts. A recent mammogram conducted in April 2024 at [place] was negative. She has not had a recent thyroid evaluation. She is a non-smoker and has no history of thromboembo lic events. She has a past medical history of fibroids, for which she underwent a hysteroscopy, D and C, and MyoSure procedure in April 2021 at [facility]. She has a past medical history offibroids, for which she underwent a hysteroscopy, D and C, and MyoSure procedure in April 2021 at [facility]. She was previously on oral contraceptives from the age of 19 to 34. She is currently on fluoxetine 20 mg once daily for premenstrual dysphoric disorder (PMDD) and has an adequate supply of the medication. Supplemental Information She had left knee surgery and right ankle surgery. SOCIAL HISTORY She does not smoke. FAMILY HISTORY Her paternal aunt had breast cancer and her great-grandmother on her father's side also had breast cancer. MEDICATIONS Current: Fluoxetine Current Outpatient Medications Medication Sig Dispense Refill Acetylcysteine (N-Acetyl Cysteine) 600 MG capsule Take 600 mg by mouth 1 (one) time each day Mounjaro 12.5 MG/0.5ML solution auto-injector Inject 12.5 mg under the skin 1 (one) time per week cetirizine-pseudoephedrine (ZyrTEC-D) 5-120 MG 12 hr tablet Take 1 tablet by mouth in the morning and 1 tablet before bedtime. Cholecalciferol (Vitamin D-3) 5000 UNIT/ML liquid 5,000 Units FLUoxetine (PROzac) 20 MG capsule Take 1 capsule (20 mg) by mouth Daily 90 capsule 3 Lancets (SixthEyeTouch Delica Plus Bpabbq60B) misc lisinopril 20 MG tablet Take 20 mg by mouth in the morning. montelukast (Singulair) 10 MG tablet 10 mg 1 (one) time each day at the same time Multiple Vitamins-Minerals (Multivitamin Women 50+) tablet norethindrone-ethinyl estradiol (05/22) 1-20 MG-MCG tablet Take 1 tablet by mouth Daily 84 tablet 3 OneTouch Verio test strip 1 each triamcinolone (Nasacort Allergy 24HR) 55 MCG/ACT nasal inhaler 2 sprays No current facility-administered medications for this visit. Allergies Allergen Reactions Dust Mite Extract Itching, Shortness of breath and Wheezing Grass Pollen(K-O-R-T-Swt Hazel) Itching, Runny nose, Shortness of breath and Wheezing Azithromycin Hives and Itching Erythromycin Diarrhea and GI intolerance Past Medical History: Diagnosis Date Abnormal uterine bleeding 04/29/2023: at least 2 years ago Asthma (CMS/HCC) Depression, controlled (CMS/HCC) Dysmenorrhea Many years Environmental allergies Hirsutism 04/29/2023: A few years ago Hypertension (CMS/HCC) Irregular menses At least 2 years ago. Menorrhagia Many years Morbid obesity with body mass index (BMI) of 40.0 to 49.9 ([facility]/HCC) Non-smoker Papanicolaou smear of cervix with atypical squamous cells of undetermined significance (ASC-US) Pneumonia 1980 Hospitalized: 1979; 1982 2016 #1 (08/17/2015) Spontaneous ; #2 (01/12/2016) Spontaneous Premenstrual dysphoric disorder (CMS/HCC) Sleep apnea in adult Uterine fibroid Past Surgical History: Procedure Laterality Date ABDOMINAL SURGERY 08/2014 CHOLECYSTECTOMY 08/2015 Nolvia COLPOSCOPY Unsure; Around 2012? DILATION AND CURETTAGE OF UTERUS April 2021 HYSTEROSCOPY 04/21/2021 Hysteroscopy, D and C, Myosure (Fibroid removal/myomectomy) KNEE ARTHROSCOPY W/ PARTIAL MEDIAL MENISCECTOMY Left 10/30/2019 Medial mesicectomy/ Abrasion chondroplasty - Dr. Roberson LASRALPH Bilateral 04/05/2008 Dr. Pulido LEG TENDON SURGERY Right 06/2016 Endoscopic gastrocnemius recession - PDH MYOMECTOMY Decemeber 2020 WISDOM TOOTH EXTRACTION 1994 OB History Para Term AB Living 2 2 0 SAB IAB Ectopic Multiple Live Births 2 0 # Outcome Date GA Lbr [place]/2nd Weight Sex Type Anes PTL Lv 2 SAB 1 SAB Obstetric Comments Pap 03/03/22- Neg, HPV Neg Mammogram 04/28/24- Neg ([facility]) Colonoscopy 07/05/23- repeat 10 years ([facility]) ROS General: Denies fevers/chills Eyes: Denies vision changes ENT: Denies neck stiffness, neck mass Endocrine: Denies polydipsia and polyuria Respiratory: Denies shortness of breath Cardiovascular: Denies chest pain and palpitations Gastrointestinal: Denies changes in bowel habits, blood in stool, constipation and diarrhea. Hematology: Denies easy bruising. Women Only: Denies breast masses, skin changes, nipple discharge, abnormal bleeding, pelvic pain and dyspareunia Genitourinary: Denies dysuria, pelvic pain and nocturia Skin: Denies rashes/lesions Neurologic: Denies headaches, dizziness, syncope Psychiatric: Denies hallucinations, suicidal ideas EXAM GENERAL EXAMINATION: Alert, oriented, well developed, well nourished. HEAD: Normocephalic, atraumatic. EYES: MARYSE, sclera anicteric. EARS: No obvious hearing deficit. NECK/THYROID: Neck supple no cervical lymphadenopathy no thyromegaly. LYMPH NODES: No axillary, supraclavicular or inguinal adenopathy. SKIN: Warm and dry. No rashes HEART: Regular rate and rhythm. No murmur LUNGS: Clear to auscultation bilaterally. CHEST: Axillary nodes grossly normal. BREASTS: No dominant masses palpable bilaterally, no skin changes, nipple discharge, supra-clavicular or axillary adenopathy ABDOMEN: Soft, nontender, nondistended, no hernia or masses palpable. BACK: No obvious scoliosis/kyphosis. 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 Exam compromised by BMI. EXTREMITIES No edema. NEUROLOGIC: Alert and oriented. PSYCH: Cooperative with exam. ICD-10-CM 1. Menometrorrhagia N92.1 norethindrone-ethinyl estradiol (05/22) 1-20 MG-MCG tablet 2. Encounter for gynecological examination without abnormal finding Z01.419 3. Encounter for screening mammogram for malignant neoplasm of breast Z12.31 4. PMDD (premenstrual dysphoric disorder) ([facility]) F32.81 FLUoxetine (PROzac) 20 MG capsule 5. Night sweats R61 Assessment & Plan 1. Menorrhagia. Her symptoms suggest a perimenopausal state, characterized by hormonal fluctuations. She reports irregular and heavy menstrual bleeding, with cycles varying between 12 to 54 days. She also experiences occasional night sweats. A recent mammogram in April 2024 was negative, and her last Pap smear 2 years ago was also negative and HPV negative. A colonoscopy performed less than a year ago was normal. A prescription for low-dose control pills will be sent to [facility] to manage her symptoms. She is advised to continue self-breast examinations and maintain adequate intake of calciumand vitamin D for bone health. Her next Pap smear is scheduled for 2025. If there is no improvementin her bleeding after 3 months, further investigations such as an ultrasound, EMB or hysteroscopy, D&C may be necessary. 2. Premenstrual Dysphoric Disorder (PMDD). She is currently taking fluoxetine 20 mg once a day for PMDD. The prescription will be renewed and sent to [facility]. PROCEDURE Colonoscopy performed less than a year ago was normal. Hysteroscopy, D and C, and MyoSure procedure were performed in April 2021. documented in this encounterSaint John's [id number] Evaluation note* Diagnosis Onset Date Resolution Status Admit Date Bronchitis acuteDecember 2023 3:53pmBMI 39.0-39.9,adultacuteFebruary 2024 3:11pmHypertensionacuteFebruary 2024 3:11pmObstructive sleep apneaacute June 29, 2024 3:11pm [facility] Work Phone: [phone]) 820-940602-01-2024 History of Present illness Narrative* Ivone Hernández, BOARD CERTIFIED BEHAVIORAL ANALYST-DIRECTOR OF AUDIOLOGY - 06/03/2023 3:30 PM EST Images from the original note were not included. Chief Complaint: Colon cancer screening History of Present Illness Karen Romero is a 47 y.o. female who presents [...] total) by mouth in the morning and 2capsules (1,200 mg total) before bedtime., Disp: , Rfl: albuterol (PROVENTIL HFA;VENTOLIN HFA) 90 mcg/actuation inhaler, Inhale 2 puffs every 6 (six) hoursas needed for wheezing., Disp: , Rfl: cetirizine-pseudoephedrine [...] 0.225 gram tablet, Please see instructional sheet givenby physicians office., Disp: 24 tablet, Rfl: 0 [...] found for: INR , PROTIME Assessment Karen Romero is a 47 y.o.female who presents to the office for screening colonoscopy. Plan Colonoscopy with possible biopsy and/or polypectomy. Risks, benefits, and alternatives discussed with patient. Educated on bowel evacuation preparation. Patient verbalizes understanding and wishes toproceed. Evaluation included: Preparing to see the patient (e.g., review of tests) Obtaining and/or reviewing separately obtained history Performing a medically appropriate examination and/or evaluation Counseling and educating the patient/family/caregiver Referring and communicating with other health care clinician Encounter for screening colonoscopy [Z12.11] SHAY ZUNIGA [facility] General Surgery [place] This note was created with the assistance of a speech recognition program. While intending to generate a timely document that accurately reflects the content of the visit, no guarantee can be provided that every grammatical or spelling mistake has been or will be identified or corrected. Thank you for your understanding. SHAY Zuniga 06/03/23 1600 documented in this encounterMiddletown HospitalCognitive Security [facility] Ger[facility] [id number] Evaluation note* Encounter Date Diagnosis Assessment Notes Treatment Notes Treatment Clinical Notes Jun, Obstructive sleep apnea (ICD-10 - G47.33) Fortunately, the patient is using and benefiting from treatment. Download was reviewed with patient, Current pressure is controlling apnea well, And we will make no changes at this time. A prescription was sent to the [employer] for new supplies throughout the year. She was encouraged to continue to use her machine nightly, throughout the entire night as this does provide clinical benefit. She will follow-up in the sleep clinic in 1 year or sooner if problems. Jun,rimary hypertension (ICD-10 - I10)Positive effects of controlled HIRO and hypertension were reviewed. Control of sleep apnea will frequently have a positive effect on blood pressure control, and may additionally reduce blood pressure lability. Jun,MI 39.0-39.9,adult (ICD-10 - Z68.39)Pt's weight is down since last OV. Positive effects of weight loss on HIRO were reviewed. She was advised to follow diet modification and increase activity as tolerated. We will continue to monitor. Jun,OtherCall if any questions or problems. Patient is advised to work on healthy diet choices and appropriate servings, weight control, regular exercise as directed, and reduce fat intake. Use machine regularly, and keep up with mask changes as needed. Call if problems with mask toleration, increased sleepiness, or poor response to treatment. [employer] Other 01-28-2024 Evaluation note* Encounter Date Diagnosis Assessment Notes Treatment Notes Treatment Clinical Notes May, Acute pansinusitis (ICD-10 - J01 .40) rx sent, take as directed. diflucan was also sent per pt request for frequent yeast infections withatb use. may continue symptomatic tx c otc meds prn. recommended hot steam baths and/or cool mist humidifier. push rest/fluids. reinforced universal infection control protocols and good hand hygiene for infection control. immediate eval if warning s/s of intractable fevers, respir distress or otheremergent symptoms. otherwise f/u with PCP INB despite treatment. [employer] Other 01-11-2024 Miscellaneous Notes* Telephone Encounter - [...] an appointment on 06/03/2023. [facility] Telephone encounter Note* Telephone Encounter - Yolanda Kendrick - 05/13/2023 12:59 PM EST Called Karen regarding the screening colonoscopy referral that our office received from Dr. Calles, I left a message on her voicemail to call the office back to schedule an appointment. [facility] [id number] Telephone encounter Note* Telephone Encounter - Yolanda Kendrick - 05/13/2023 12:59 PM EST Called Karen regarding the referral that our office received, I left a message on her voicemail to call the office back to schedule an appointment. [facility] [id number] Telephone encounter Note* Telephone Encounter - Yolanda Kendrick - 05/13/2023 12:59 PM EST Karen called the office back and we scheduled her an appointment on 06/03/2023. [facility] [id number] Evaluation note* Encounter Date Diagnosis Assessment Notes Treatment Notes Treatment Clinical Notes Jan, Contact with and (cabrales spected) exposure to other viral communicable diseases (ICD-10 - Z20.828) Jan,cute sinusitis, recurrence not specified, unspecified location (ICD-10 - J01.90) Drink plenty fluids, get plenty of rest. Take the Augmentin as prescribed until gone. Take the prednisone as prescribed until gone. Use the Flonase inhaler as prescribed until your symptoms improve. Continue your home medications as prescribed. Tylenol or Motrin for aches pains or fevers. Follow-upwith your family physician if no improvement in 2 to 3 days. Jan,Other Additional time spent conducting pre-visit phone call, screening for symptoms, instructions on social distancing, application and removal of PPE, and cleaning of examination room, equipment and supplies was preformed. Patient education given for testing methodology and results. Patient care instructions given in writting by [facility] document. [employer] Other Evaluation noteNo assessment information available [facility] Work Phone: Evaluation note* Diagnosis Menometrorrhagia- Primary Excessive or frequent menstruation Encounter for gynecological examination without abnormal finding Encounter for screening mammogram for malignant neoplasm of breast PMDD (premenstrual dysphoric disorder) (CMS/HCC) Premenstrual tension syndromes Night sweats Generalized hyperhidrosis documented in this encounter [facility]* Diagnosis Encounter for screening colonoscopy- Primary [facility] Diagnosis Ganglion cyst of right foot- Primary Pain in right foot Pain in soft tissues of limb Difficulty walking Difficulty in walking documented in this encounter [facility] HealthcareHistory general Narrative - Reported* Type Description Date Medical History Seasonal allergies Medical HistoryAsthmaMedical HistoryAnxiety and depressionMedical HistoryHTN Medical HistoryOSA (obstructive sleep apnea)Surgical Historycholecystectomy Surgical HistorylasikSurgical Historyoral surgerySurgical Historywisdom teeth Surgical Historyfixed achilles rightSurgical Historyknee arthroscopy left Hospitalization Historysee aboveHospitalization Historypneumonia [facility] Other InstructionsNot on filedocumented in this encounter [facility] SystemInstructionsNot on filedocumented in this encounter [facility] [facility] Summary Purpose Family History Relationship Condition Age at Onset Recorded Date/T talib father Hypertension Unknown motherHypertensionUnknownDementiaUnknown Advance Directives Advance Directive Response Recorded Date/ Time Advance Directives No October 27 18 6:19am Advance Directive Response Recorded Date/ Time Advance Directives No October 27 18 7:19am Hospital Course Note [facility] SURGERY Clinical Discharge Summary PERSON INFORMATION Name KAREN ROMERO Age 43 Years 1975 Sex FEMALE Language Hungarian PCP Lm Ramírez DO Marital Status Single Med Service Ambulatory Surgery Acct# Arrival 10/30/2019 13:32:31 Visit Reason SURGERY-LEFT KNEE ARTHROSCOPY Acuity LOS 018 01:31 [address]: [address] [place], [place] [address] [address] Comment: PROVIDER INFORMATION VITALS INFORMATION Vital Sign [...] (more content not included)... Note Patient: KAREN ROMERO Age: 43 years Sex: FEMALE : 1975 Associated Diagnoses: None Author: Nasim Rausch MD Postoperative Information Post Operative Note Health Status Allergies: Allergic Reactions (All) Severity Not Documented Azithromycin- Hives. Erythromycin- Vomiting. Problem list (past medical history): All Problems Asthma / SNOMED CT 279766276 / Confirmed Hypertension / SNOMED CT 8443206408 / Confirmed PMDD (premenstrual dysphoric disorder) / SNOMED CT 6667915 / Confirmed Sleep apnea / SNOMED CT 457604988 / Confirmed Physical Examination VS/Measurements Vital Signs [...] not included)... Procedure Findings Note Patient: KAREN ROMERO Age: 43 years Sex: FEMALE : 1975 Associated Diagnoses: None Author: Nasim Rausch MD Postoperative Information Post Operative Note Health Status Allergies: Allergic Reactions (All) Severity Not Documented Azithromycin- Hives. Erythromycin- Vomiting. Problem list (past medical history): All Problems Asthma / SNOMED CT 531881575 / Confirmed Hypertension / SNOMED CT 0540371976 / Confirmed PMDD (premenstrual dysphoric disorder) / SNOMED CT 9796282 / Confirmed Sleep apnea / SNOMED CT 565487322 / Confirmed Physical Examination VS/Measurements Vital Signs [...] Reason for Visit Chief Complaint [facility] Chief Complaint hiro, kvng delgadillo- [facility] Chief Complaint Admit Date Sinus congestion, cough, fever April 17, 2024 3:53pm HIRO/Annual June 29, 2024 3:11pm Reason for Visit Admit Date Bronchitis April 17, 2024 3:53pm BMI 39.0-39.9,adult June 29, 2024 3:11pm Hypertension June 29, 2024 3:11pm Obstructive sleep apnea June 29, 2 025 3:11pm Chief Complaint Admit Date HIRO/Annual June 29, 2024 3:11pm Bilateral ear pain July 25, 2024 11: 56am Reason for Visit Admit Date BMI 39.0-39.9,adult June 29, 2024 3:11pm Hypertension June 29, 2024 3:11pm Obstructive sleep apnea June 29, 2 025 3:11pm Chief Complaint Admit Date HIRO/Annual June 29, 2024 3:11pm Bilateral ear pain July 25, 2024 11: 56am Chest congestion August 11, 2024 6:1 5pm Reason for Visit Admit Date BMI 39.0-39.9,adult June 29, 2024 3:11pm Hypertension June 29, 2024 3:11pm Obstructive sleep apnea June 29, 2 025 3:11pm Acute effusion of both middle ears July 25, 2024 11:56am Additional Source Comments INFORMATION SOURCE (unrecogn ized section and content) DATE CREATED AUTHOR 06/04/2020 [facility] DATE CREATED AUTHOR AUTHOR'S ORGANIZ ATION 03/12/2022 [facility] DATE CREATED AUTHOR AUTHOR'S ORGANIZ ATION 06/06/2023 [facility] DATE CREATED AUTHOR AUTHOR'S ORGANIZ ATION 06/11/2023 [facility] DATE CREATED AUTHOR AUTHOR'S ORGANIZ ATION 07/07/2023 [facility] DATE CREATED AUTHOR AUTHOR'S ORGANIZ ATION 10/01/2024 [facility] EPIC REASON FOR VISIT (unrecogniz ed section and content) ReasonCommentsGynecologic ExamPt presents for yearly. 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 Patient states she might've noticed something starting a couple months ago, but did not think much of it at the time, but noticed it this past weekend and states it is painful to the touch. Care Teams (unrecognized sec tion and content) Team Status: Inactive Member Role Status Dates Bart Brar MD Attending Provider Active Angelika Alves Care ProviderActive Team Status: Active Member Role Status Dates Lm Ramírez DO Primary Care Provider Active Team Status: Inactive Member Role Status Dates Lm Ramírez DO Primary Care Provider Active St art: June 03, 2023 End: June 03egrochelle Campo NPAttending ProviderActiveStart: June 03, 2023 End: June 03, 2023Team MemberRelationshipSpecialtyStart DateEnd Date Lm Ramírez MD [address] [place] [address] PCP - GeneralFamily Fftxatjh88/29/23Team MemberRelationshipSpecialtyStart Date End Date Lm Ramírez DO [address] [place] [id number] PCP - [facility]06/09/21Team MemberRelationshipSpecialtyStart DateEnd Date Lm Ramírez DO [address] [place] [id number] PCP - [facility]06/09/21 Team Status: Inactive Member Role Status Dates Lm Ramírez DO Primary Care Provider Active St art: April 17, 2024 End: April 17Nancy Lima ProviderActiveStart: April 17, 2024 End: April 17, 2024 Team Status: Inactive Member Role Status Dates Lm Ramírez DO Primary Care Provider Active St art: June 29, 2024 End: June 29, 2024Pesteven Campo NPAttjese ProviderActiveStart: June 29, 2024 End: June 29, 2024 Team Status: Inactive Member Role Status Dates Lm Ramírez DO Primary Care Provider Active St art: July 25, 2024 End: July 25Tani Desirtenstaci ProviderActiveStart: July 25, 2024 End: July 25, 2024 Team Status: Inactive Member Role Status Dates Lm Ramírez DO Primary Care Provider Active St art: August 11, 2024 End: August 11, 2024Nancy Vásquez ProviderActiveStart: August 11, 2024 End: August 11, 2024Team MemberRelationshipSpecialtyStart DateEnd Date Lm Ramírez MD [address] [place] [address] PCP - [facility]04/30/23Team MemberRelationshipSpecialtyStart Date End Date Lm Ramírez MD [address] [place] [address] PCP - GeneralFamily Duwhvszs96/29/23Team MemberRelationshipSpecialtyStart Date End Date Lm Ramírez MD [address] [place] [address] PCP - [facility]04/30/23Te MemberRelationshipSpecialtyStart Date End Date Lm Ramírez MD [address] [place] [address] PCP - [facility]04/30/23 Goals (unrecognized section and content) Goals may [...] BE BASED ON THE PRIMARY CLINICAL RECORDS. [facility] [employer] [facility]. provides no warranty or guarantee of the accuracy or completeness of information in this document.
== END 2025-05-01 10:19 | disposition home or self-care (01) ==
LOC: MAMMO 10:18
PROVIDERS: PCP Family Medicine; Visit Provider Obstetrics & Gynecology
DX: Z12.31 Encounter for screening mammogram for malignant neoplasm of breast (principal); Z80.3 Family history of malignant neoplasm of breast
CPT/HCPCS: 77063; 77067